=== PATIENT | female | born 1965 | race Caucasian/White ===

== ENCOUNTER 2018-01-29 20:59 | Inpatient (IN) | payer OTHER ==
[~2018-01-29] VITALS: Ht 160 cm; Wt 92.7 kg
--- NOTE | ~2018-01-29 | O ---
[place], [place] OPERATIVE NOTE NAME: MELLISSA CANTRELL [facility] #: [id number] UNIT #: [id number] ROOM: 504 DOCTOR: ERIC SINHAYENISTUART BIRTHDATE: [birth year] DOS: 01/30/2018 GASTROENDOSCOPIC REPORT HISTORY OF PRESENT ILLNESS: The patient is a 53-year-old who presented with symptomatology of dyspepsia, dysphagia and she is an avid nicotine consumer and we have been consulted about her symptomatology and possible reflux. PAST MEDICAL HISTORY: Bipolar disorder, hypertension, obesity, hypothyroidism, hyperlipidemia, and asthma. PAST SURGICAL HISTORY: Tonsillectomy. SOCIAL HISTORY: Smoker and social alcohol consumer. FAMILY HISTORY: Noncontributory. ALLERGIES: CEPHALEXIN, AZITHROMYCIN, GENTAMICIN, LEVOFLOXACIN, and COMPAZINE, ALL WAS REVIEWED. MEDICATIONS: Medication list is known including ibuprofen 800 mg p.o. q.8 hours. PROCEDURE: Today's procedure part of investigation is panendoscopy plus biopsy plus esophageal balloon dilation to size 18. PREMEDICATION: Propofol. SCOPE: Olympus forward-viewing gastroscope Q10 video. REPORT: After putting the patient in left lateral position and application of lubricant to the scope, the scope was introduced. Thereafter, under direct visualization, advanced through the length of esophagus into gastric pouch into duodenum. Gastritis was noticed. Duodenitis identified, photographed. Biopsy from antrum was obtained. Scope was gradually withdrawn back to the mid gastric pouch. A balloon size 18 was introduced into the gastric pouch inflated and orally extracted highest resistance in cervical esophagus was noticed. The patient tolerated the procedure well, extubated. IMPRESSION: Benign esophageal stricture plus status post balloon dilation, gastritis, duodenitis that requires Protonix therapy 40 mg daily at least. She has to be advised to abstain from continuous intake of 800 mg ibuprofen q.8h. and if she has to then she has to adopt taking Gaviscon tablet along with it, otherwise regular diet. Other adjunctive diagnoses that has been already established as fatty metamorphosis of the liver and hepatomegaly is known. Her comprehensive metabolic panel has been reviewed. Records reviewed. Hypertriglyceridemia of 338 noticed. She needs to be on Lopid for management 600 mg daily. Her white blood cell 12, H and H of 10 and 33 is recognized. Hemoglobin A1c 6.3, elevated. CT scan of the abdomen and pelvis has been reviewed. [place], [place] OPERATIVE NOTE NAME: MELLISSA CANTRELL UNIT #: [id number] ROOM: 504 DOCTOR: ERIC SINHA,VARGHESE BIRTHDATE: [birth year] PLAN: As recommended above. We already recognizing left-sided uterine fibroid, which could associated with some of her abdominal distress and pain. However, she would need a colonoscopy as outpatient if she is discharged, so that we assure that there is no other cause to her anemia. VARGHESE REYES MD CM:OPRECORD:OPERATIVE NOTE [phone] VARGHESE REYES MD 01/30/18 1830 interface
[2018-01-29 20:59] VITALS: BP 142/67
[~2018-01-29 20:59] MED LIST: ATIVAN0.5 MG PO; ATORVASTATIN CA20 M1 PO; CITALOPRAM20 MG PO; CLARITIN10 MG PO; CLONAZEPAM2 MG PO; COGENTIN1 MG PO; FLAGYL500 MG PO; FUROSEMIDE20 M1 PO; GEODON60 MG PO; GEODON80 MG PO; IBU800 M1 PO; MEDROL DOSEPAK4 MG PO; METFORMIN500 MG PO; MIDRIN (DURADR1 CAP PO; PREDNICOT20 MG PO; Synthroid,Levo25 MCG PO; TESSALON PERLE200 MG PO; TRIMOX500 MG PO; VIBRAMYCIN100 MG PO; VICODIN 5/500 505 MG PO; VITAMIN D50000 UNIT PO; XANAX1 MG PO; ZOFRAN4 MG PO
[2018-01-29 21:52] LABS: BILIRUBIN NEGATIVE (NEGATIVE); BLOOD NEGATIVE (NEGATIVE); CLARITY CLEAR (CLEAR); COLOR YELLOW (YELLOW); GLUCOSE NEGATIVE (NEGATIVE); KETONE NEGATIVE (NEGATIVE); LEUKO ESTERASE NEGATIVE (NEGATIVE); NITRITE NEGATIVE (NEGATIVE); SPECIFIC GRAVITY <= 1.005 (1.005-1.030); UROBILINOGEN 0.2 E.U./dl (0.2-1.0)
[2018-01-29 22:01] LABS: HEMATOCRIT 36.9 % (37.0-47.0); HEMOGLOBIN 12.1 g/dl (12.0-16.0); MEAN CELL VOLUME 86.4 fl (81.0-99.0); MEAN CORPUSCULAR HGB 28.3 pg (27.0-31.0); MEAN CORPUSCULAR HGB CONC 32.8 g/dl (33.0-37.0); MEAN PLATELET VOLUME 8.6 fl (9.6-12.3); PLATELET COUNT AUTOMATED 396 10*3/uL (130-400); RED BLOOD COUNT 4.27 10*6/uL (4.10-5.10)
[2018-01-29 22:07] LABS: BACTERIA 3+
[2018-01-29 22:17] LABS: ALBUMIN 3.4 gm/dl (3.1-4.5); ALKALINE PHOSPHATASE 98 U/L (45-117); BUN 10 mg/dl (7-24); CHLORIDE 104 mmol/L (98-107); CREATININE 0.97 mg/dL (0.55-1.02); LIPASE 142 U/L (73-393); POTASSIUM 3.5 mmol/L (3.5-5.1); SGOT/AST 16 IU/L (3-35); SGPT/ALT 34 U/L (12-78); SODIUM 139 mmol/L (136-145); TOTAL PROTEIN 7.7 gm/dL (6.4-8.2)
[2018-01-29 22:27] LABS: PLATELET SUFFICIENCY NORMAL (NORMAL); TOTAL CELLS COUNTED 100 #CELLS
[2018-01-29 23:43] VITALS: BP 99/48
[2018-01-30] VITALS (10 sets, daily range): BP systolic 100–128; BP diastolic 50–65
[2018-01-30] MEDS ORDERED: APRESOLINE25 MG PO (01:12)
[2018-01-30] MEDS ORDERED: PRILOSEC20 M1 PO (01:15)
[2018-01-30 06:38] LABS: BASO # 0.1 10*3/uL (0.0-0.1); BASO % 0.7 % (0.0-1.0); EOS # 0.2 10*3/uL (0.0-0.4); EOS % 1.9 % (1.0-4.0); HEMATOCRIT 33.1 % (37.0-47.0); HEMOGLOBIN 10.6 g/dl (12.0-16.0); LYMPH # 4.7 10*3/uL (1.3-4.4); LYMPH % 38.8 % (27.0-41.0); MEAN CORPUSCULAR HGB 28.2 pg (27.0-31.0); MEAN PLATELET VOLUME 8.6 fl (9.6-12.3); MONO # 0.6 10*3/uL (0.1-1.0); MONO % 5.3 % (3.0-9.0); NEUT # 6.4 10*3/uL (2.3-7.9); NEUT % 52.9 % (47.0-73.0); PLATELET COUNT AUTOMATED 342 10*3/uL (130-400); RED BLOOD COUNT 3.76 10*6/uL (4.10-5.10); RED CELL DISTRI WIDTH 16.4 % (0-14.5); WHITE BLOOD COUNT 12.1 10*3/uL (4.8-10.8)
[2018-01-30 06:41] LABS: VITAMIN D, 25-HYDROXY 26.1 ng/mL (30-100)
[2018-01-30 06:53] LABS: ALBUMIN 2.9 gm/dl (3.1-4.5); ALKALINE PHOSPHATASE 85 U/L (45-117); BUN 12 mg/dl (7-24); CHLORIDE 107 mmol/L (98-107); CHOLESTEROL 190 mg/dL (<200); CREATININE 1.01 mg/dL (0.55-1.02); FREE T4 0.87 ng/dl (0.76-1.46); HDL CHOLESTEROL 30 mg/dl (40-60); LDL CHOLESTEROL 92 mg/dL (9-159); PHOSPHOROUS 4.1 mg/dL (2.5-4.9); POTASSIUM 3.6 mmol/L (3.5-5.1); SGOT/AST 14 IU/L (3-35); SGPT/ALT 28 U/L (12-78); SODIUM 141 mmol/L (136-145); TOTAL PROTEIN 6.5 gm/dL (6.4-8.2); TRIGLYCERIDES 338 mg/dl (<150); VLDL CHOLESTEROL 68 mg/dL (6-40)
[2018-01-30] MEDS ORDERED: GAVISCON ES TA1 EACH PO (18:56)
[2018-01-30] MEDS ORDERED: ATORVASTATIN CA40 M1 PO (18:56)
[2018-01-30] MEDS ORDERED: PROTONIX40 MG PO (18:56)
[2018-01-30] MEDS ORDERED: VITAMIN D31000 UNIT PO (18:56)
== END 2018-01-30 20:05 | disposition home or self-care (01) | DRG 392 ==
LOC: ED 20:59 → 5E 01-30 00:05 → EDHOLD 01-30 00:05 → 5E 01-30 00:32
PROVIDERS: Emergency Medicine Emergency Medical Services; Internal Medicine
PROC: 0DB68ZX Excision of Stomach, Via Natural or Artificial Opening Endoscopic, Diagnostic (ICD-10-PCS; principal; 2018-01-30)
PROC: 0D758ZZ Dilation of Esophagus, Via Natural or Artificial Opening Endoscopic (ICD-10-PCS; 2018-01-30)
DX: R10.84 Generalized abdominal pain (principal); K76.0 Fatty (change of) liver, not elsewhere classified; K22.2 Esophageal obstruction; E03.9 Hypothyroidism, unspecified; E78.5 Hyperlipidemia, unspecified; E11.9 Type 2 diabetes mellitus without complications; R82.71 Bacteriuria; I10 Essential (primary) hypertension; F17.210 Nicotine dependence, cigarettes, uncomplicated; D25.9 Leiomyoma of uterus, unspecified; K29.80 Duodenitis without bleeding; K29.70 Gastritis, unspecified, without bleeding; J45.909 Unspecified asthma, uncomplicated; E66.9 Obesity, unspecified; F31.9 Bipolar disorder, unspecified; K21.9 Gastro-esophageal reflux disease without esophagitis; Z88.1 Allergy status to other antibiotic agents; Z88.8 Allergy status to other drugs, medicaments and biological substances; Z79.84 Long term (current) use of oral hypoglycemic drugs; Z79.899 Other long term (current) drug therapy; Z82.3 Family history of stroke; Z83.3 Family history of diabetes mellitus; Z82.49 Family history of ischemic heart disease and other diseases of the circulatory system; Z80.8 Family history of malignant neoplasm of other organs or systems; Z68.36 Body mass index [BMI] 36.0-36.9, adult

== ENCOUNTER 2018-05-14 16:12 | Inpatient (IN) | payer OTHER ==
[~2018-05-14] VITALS: Ht 162.6 cm; Wt 91.2 kg
--- NOTE | ~2018-05-14 | PR ---
[place], [place] PROGRESS NOTE NAME: NELLI CANTRLEL [facility] #: [id number] UNIT #: [id number] ROOM: 511 DOCTOR: ISAAC DAMON MD,JEANNETTE BIRTHDATE: [birth year] DOS: 05/20/2018 SUBJECTIVE: The patient is noted comfortable at this time without any acute distress, resting with marked improvement and resolution. The patient's respiratory complaints was noted. The patient was independently seen and examined in [id number] encounter, history was confirmed. Physical exam was performed. The assessment and management was done today was made personally for today's visit. The note done by the medical records library professor group. OBJECTIVE: VITAL SIGNS: Shows normal temperature, respiratory rate 20, heart rate of 70, blood pressure normal. The pulse oxygen saturation noted as 94% on room air. LUNGS: Noted without any wheeze or crackle this morning, marked improvement in wheezing noted after bronchoscopy. ABDOMEN: Soft and obese, improving tender in anterior abdominal wall. EXTREMITIES: No edema. LABORATORY DATA: Cultures of the bronchial washing were noted normal estiven, final culture results were pending. IMPRESSION: The patient significant improvement. The patient continued for acute exacerbation of COPD, still noted leukocytosis as 21.4 in today's CBC. 21% lymphocytes were noted with that. PLAN OF MANAGEMENT: The patient could be discharged home on tapering dose of prednisone, antibiotics. Outpatient assessment seems patient off the steroids couple of weeks later to see the trend if the WBC count continue remains elevated. The patient will be recommended about hematology consultation to rule out any bone marrow problems. In the meantime, other supportive therapy, plan of management, continue as previously in progress. JEANNETTE GRAY MD CM:PNTRANS [id number] JEANNETTE DAMON MD 06/05/18 0814 interface
--- NOTE | ~2018-05-14 | PR ---
[place], [place] PROGRESS NOTE NAME: NELLI CANTRELL [facility] #: [id number] UNIT #: [id number] ROOM: 511 DOCTOR: MALINDA PARMAR DO BIRTHDATE: [birth year] DOS: 05/20/2018 SUBJECTIVE: The patient was seen and examined at the bedside. She denies fevers, chills, nausea, abdominal pain or any change in bowel or bladder habits. The patient states that she is overall feeling greatly improved today after her bronchoscopy yesterday. She still is experiencing some wheezing and coughing, but overall feels greatly improved. OBJECTIVE: VITAL SIGNS: Show temperature at 97.7 degrees Fahrenheit, heart rate at 57, respiratory rate at 18, blood pressure at 113/47, pulse oximetry 94% on room air. GENERAL APPEARANCE: The patient was awake, alert, responsive, cooperative and in no acute distress. HEENT: Head was normocephalic and atraumatic. No lesions or ulcerations were noted to the eyes. NECK: Trachea appeared midline. CARDIOVASCULAR: Positive S1 and S2 sounds are heard. Regular rate and rhythm were noted. No murmurs, rubs or gallops were appreciated. PULMONARY: Expiratory wheezing was heard. LUNGS: Occasional coughing was present on exam. ABDOMEN: The abdomen was soft and nontender to palpation. Bowel sounds were auscultated. The abdomen was obese. EXTREMITIES: Bilateral lower extremities were without edema. No clubbing, cyanosis or erythema was present. LABORATORY DATA: CBC from today shows white count at 21.4, hemoglobin at 10.6, hematocrit at 33.2, platelets at 369. Most recent chemistries from yesterday 05/19/2018, show sodium at 141, potassium at 3.7, chloride at 109, bicarbonate at 24, BUN at 28, creatinine at 0.80, glucose at 108, calcium at 8.5, total bilirubin at 0.2, AST at 9, ALT at 20, alkaline phosphatase at 68, and albumin at 3.0. In terms of microbiology preliminary bronchial washings showed normal estiven with fever observed yeast. IMPRESSION: 1. Acute exacerbation of chronic obstructive pulmonary disease. 2. Persistent leukocytosis. 3. Tobacco abuse. 4. Obesity. 5. Normocytic anemia. PLAN OF MANAGEMENT: The patient remains on Solu-Medrol 20 mg q.12h. IV Rocephin, Mucinex and bronchodilator therapy. At this time, she is stable for consideration of discharge and should follow up with Pulmonary Medicine on an outpatient basis. There should be consideration for followup with Hematology/Oncology for evaluation of a possible malignancy should the patient's leukocytosis persists. [place], [place] PROGRESS NOTE NAME: NELLI CANTRELL UNIT #: [id number] ROOM: 511 DOCTOR: MALINDA PARMAR DO BIRTHDATE: [birth year] Malinda Parmar DO JEANNETTE GRAY MD CM:PNKANDY [phone] MALINDA PARMAR DO 05/20/18 1321 interface
--- NOTE | ~2018-05-14 | PR ---
[place], [place] PROGRESS NOTE NAME: NELLI CANTRELL [facility] #: [id number] UNIT #: [id number] ROOM: [facility] DOCTOR: ASHWIN ARANGO MD BIRTHDATE: [birth year] DOS: 05/16/2018 SUBJECTIVE: The patient is breathing better, starting to feel better. OBJECTIVE: VITAL SIGNS: Blood pressure 103/58, heart rate of 73 beats per minute, breathing 18-24 times per minute, afebrile. GENERAL APPEARANCE: The patient is alert and oriented x 3, in no visible distress, except for obesity. HEENT AND NECK: Exam within normal limits. CARDIOVASCULAR SYSTEM: Heart rate is regular in rate and rhythm. S1 and S2 normally audible. LUNGS: Expiratory wheezing allover on lung auscultation. ABDOMEN: Soft, nontender. No obvious organomegaly. Bowel sounds are present. EXTREMITIES: Without significant cyanosis or edema. IMPRESSION: 1. The patient with acute over chronic respiratory failure with wheezing with very slow improvement with treatment. The patient will be moved out of the ICU today. 2. Corticosteroid-induced leukocytosis. 3. Cardiac enzymes were negative. 4. Acute exacerbation of chronic obstructive pulmonary disease, improving with treatment. 5. Type 2 diabetes mellitus. Blood sugars being monitored and treated. The patient is on a sliding scale of regular insulin. 6. Hypothyroidism, treated with levothyroxine. 7. Generalized anxiety disorder, treated and controlled with hydroxyzine. ASHWIN ARANGO MD CM:PNTRANS [phone] ASHWIN ARANGO MD 05/17/18 0003 interface
--- NOTE | ~2018-05-14 | PR ---
[place], [place] PROGRESS NOTE NAME: NELLI CANTRELL UNIT #: [id number] ROOM: 511 DOCTOR: MALINDA PARMAR DO BIRTHDATE: [birth year] DOS: 05/19/2018 SUBJECTIVE: The patient was seen and examined prior to her bronchoscopy today. She had previously been experiencing coughing so severe that she pulled an abdominal muscle, but was still unable to expectorate her sputum. OBJECTIVE: VITAL SIGNS: Showed temperature at 98.4 degrees Fahrenheit, heart rate at 70, respiratory rate at 18, blood pressure at 133/62, pulse oximetry at 95% on room air. GENERAL APPEARANCE: The patient was awake, responsive and in no acute distress. HEENT: The head was normocephalic and atraumatic. Eyes were without lesions or ulcerations. PULMONARY: Showed occasional coughing. ABDOMEN: Showed an obese abdomen. EXTREMITIES: Without cyanosis, clubbing, or erythema. LABORATORY DATA: CBC from today shows white count at 20.4, hemoglobin at 10.7, hematocrit at 33, platelets at 373. Chemistries from today shows sodium at 141, potassium at 3.7, chloride at 109, bicarbonate at 24, BUN at 28, creatinine at 0.8, glucose at 108, calcium at 8.5, total bilirubin at 0.2, AST at 9, ALT at 20, alkaline phosphatase at 68, albumin at 3.0. IMPRESSION: 1. Acute exacerbation of chronic obstructive pulmonary disease. 2. Acute hypoxic respiratory failure secondary to chronic obstructive pulmonary disease. 3. Tobacco abuse. 4. Obesity. 5. Leukocytosis. 6. Hyperglycemia. PLAN OF MANAGEMENT: For the patient's COPD, she is on IV Rocephin as well as Solu-Medrol 20 mg b.i.d. She also remains on Mucinex and bronchodilator therapy. The patient underwent bronchoscopy today with liberation of large quantities of mucus plugs. Bronchial washings are now pending. Malinda Parmar DO [place], [place] PROGRESS NOTE NAME: NELLI CANTRELL UNIT #: [id number] ROOM: 511 DOCTOR: MALINDA PARMAR DO BIRTHDATE: [birth year] JEANNETTE GRAY MD CM:MARCO [id number] MALINDA PARMAR DO 05/19/18 1140 interface
--- NOTE | ~2018-05-14 | DS ---
[place], [place] DISCHARGE SUMMARY NAME: NELLI CANTRELL [facility] #: [id number] UNIT #: [id number] ROOM: 511 DOCTOR: ASHWIN ARANGO MD BIRTHDATE: [birth year] DOS: 05/20/2018 DISCHARGE DIAGNOSES: 1. Acute exacerbation of chronic obstructive pulmonary disease, improved with treatment. Bronchoscopy performed during this admission. 2. Persistent leukocytosis needs to be reevaluated in 2 weeks. 3. Continued nicotine smoke dependence. 4. Hypothyroidism. 5. Generalized anxiety disorder. 6. Type 2 diabetes mellitus. 7. Acute over chronic respiratory failure. 8. Bipolar disorder. 9. Gastroesophageal reflux disease and esophagitis. 10. Vitamin D deficiency. 11. Mixed hyperlipidemia. 12. Obesity. 13. Major depression, recurrent, moderate. HOSPITAL COURSE: The patient was admitted with increased shortness of breath, wheezing, and acute over chronic respiratory failure and I admitted her to the ICU from my office. Dr. Chaves, the data processor was consulted and she had slow improvement with treatment with corticosteroids, oxygen, antibiotics and nebulizer treatments. Finally, the patient was taken for a bronchoscopy and her breathing is somewhat improved. The patient has chronic wheezing, but she appears to have achieved maximum benefit from this admission and will be discharged to home in consultation with Dr. Chaves and she will follow up with him as an outpatient and with me in less than a week. Persistent leukocytosis could be secondary to corticosteroids, but she will need reevaluation in 2 weeks. Generalized anxiety disorder, treated and controlled with Xanax as needed. Gastroesophageal reflux disease and esophagitis, asymptomatic with Protonix. Hypothyroidism, treated with levothyroxine. Major depression, recurrent, mild, treated with citalopram, asymptomatic. LABORATORY DATA: White cell count of 21,000, hemoglobin 10.6, normal platelets. Sputum cultures from bronchoscopy pending. DISCHARGE MANAGEMENT: Hydroxyzine 25 mg 3 times a day, nicotine patch 21 mg daily, levothyroxine 125 mcg daily, furosemide 20 mg daily, metformin 500 mg b.i.d., Protonix 40 mg a day, Geodon 60 mg b.i.d., ropinirole 0.5 mg b.i.d., citalopram 30 mg a day, Xanax 1 mg t.i.d. as needed for anxiety. Follow up at the office in less than a week and follow up with Dr. Chaves, the data processor. [place], [place] DISCHARGE SUMMARY NAME: NELLI CANTRELL [facility] #: [id number] UNIT #: [id number] ROOM: [facility] DOCTOR: ASHWIN ARANGO MD BIRTHDATE: [birth year] ASHWIN ARANGO MD CM:MIGUE [id number] ASHWIN ARANGO MD 05/20/18 2114 interface
--- NOTE | ~2018-05-14 | PR ---
[place], [place] PROGRESS NOTE NAME: NELLI CANTRELL UNIT #: [id number] ROOM: 511 DOCTOR: JEANNETTE OAKES MD BIRTHDATE: [birth year] DOS: 05/17/2018 PULMONARY PROGRESS NOTE SUBJECTIVE: She was transferred from Intensive Care Unit to medical floor. She has now been noted with symptoms of chest pain. The patient does have a cough, nonproductive with shortness of breath occurring with exertion, not at rest. There were no symptoms of chest pain. OBJECTIVE: VITAL SIGNS: Normal temperature, respiratory rate 22, heart rate 75, blood pressure 129/76. Pulse oxygen saturation on 2 liters nasal cannula 93% saturation. HEENT: Examination shows head was atraumatic, chronic obesity. NECK: Supple. CARDIOVASCULAR: S1, S2 is audible. LUNGS: The patient was noted with general reduction in the breath sounds, scattered wheezing. There were no crackles. ABDOMEN: Soft, nontender. EXTREMITIES: Without any acute edema. LABORATORY DATA: CBC today: WBC count 21,000, decreased, previously 23,000. CMP: BUN 25, creatinine was normal. The chest x-ray that was done yesterday, was noted without any acute pulmonary infiltration, which were visible. IMPRESSION: 1. The patient with acute hypoxic respiratory failure. At this time, the etiology was noted unclear, partly related to the acute exacerbation of chronic obstructive pulmonary disease; however, other etiologies to be excluded. 2. Leukocytosis. PLAN OF MANAGEMENT: Order CTA of the chest for assessment of the pulmonary arteries to rule out pulmonary embolism and also to assess the current leukocytosis that might be resulting from the occult pneumonia, not visible on the chest x-ray. Monitor culture results as well. Usual care. Other additional treatment changes to be made based on the progression of the illness. Supportive care to be continued. Monitoring the lab will be continued. [place], [place] PROGRESS NOTE NAME: NELLI CANTRELL UNIT #: [id number] ROOM: 511 DOCTOR: JEANNETTE OAKES MD BIRTHDATE: [birth year] JEANNETTE GRAY MD CM:PNTRANS [id number] JEANNETTE DAMON MD 05/18/18 0013 interface
--- NOTE | ~2018-05-14 | PR ---
[place], [place] PROGRESS NOTE NAME: NELLI CANTRELL [facility] #: [id number] UNIT #: [id number] ROOM: 511 DOCTOR: ASHWIN ARANGO MD BIRTHDATE: [birth year] DOS: 05/17/2018 SUBJECTIVE: The patient is improving slowly, but still has wheezing in her lungs. OBJECTIVE: VITAL SIGNS: Blood pressure 102/57, heart rate 73 beats per minute, breathing 18 times per minute, temperature 98.5 degrees Fahrenheit. GENERAL APPEARANCE: The patient is alert and oriented x 3, in no visible distress. Obesity. HEENT AND NECK: Exam within normal limits. CARDIOVASCULAR SYSTEM: Heart rate is regular in rate and rhythm. S1 and S2 normally audible. LUNGS: Auscultation shows expiratory wheezing. ABDOMEN: Soft, nontender. No obvious organomegaly. Bowel sounds are present. EXTREMITIES: Without significant cyanosis or edema. IMPRESSION: 1. Acute exacerbation of chronic obstructive pulmonary disease with wheezing and slow improvement, being followed by Dr. Chaves. The patient is still on a cardiac rehabilitation program director and being treated with bronchodilators, antibiotic, oxygen and corticosteroids. 2. Corticosteroid-induced leukocytosis. 3. Negative cardiac enzymes. 4. Acute over chronic respiratory failure, improving. 5. Type 2 diabetes mellitus. Blood sugars are reasonably controlled. 6. Generalized anxiety disorder, treated and controlled with hydroxyzine. 7. Hypothyroidism, replaced with levothyroxine. 8. CT angiogram of the chest showing no signs of pulmonary embolism. ASHWIN ARANGO MD CM:PNTRANS [phone] ASHWIN ARANGO MD 05/17/182048 interface
--- NOTE | ~2018-05-14 | PR ---
[place], [place] PROGRESS NOTE NAME: NELLI CANTRELL [facility] #: [id number] UNIT #: [id number] ROOM: 511 DOCTOR: ASHWIN ARANGO MD BIRTHDATE: [birth year] DOS: 05/18/2018 SUBJECTIVE: The patient is still wheezing and short of breath and going for bronchoscopy by Dr. Chaves. OBJECTIVE: VITAL SIGNS: Blood pressure 115/52, heart rate 63 beats per minute, breathing 20 times per minute, temperature 98.3 degrees Fahrenheit. HEENT AND NECK: Exam within normal limits. CARDIOVASCULAR SYSTEM: Heart rate is regular in rate and rhythm. S1 and S2 normally audible. LUNGS: Expiratory wheezing and decreased breath sounds all over on lung auscultation. ABDOMEN: Soft, nontender. No obvious organomegaly. Bowel sounds are present. Obesity. EXTREMITIES: Without significant cyanosis or edema. IMPRESSION: 1. Corticosteroid-induced leukocytosis. 2. Acute exacerbation of chronic obstructive pulmonary disease with continued wheezing. The patient going for bronchoscopy by Dr. Chaves, which is both diagnostic and therapeutic. 3. Acute on chronic respiratory failure. 4. Type 2 diabetes mellitus. Blood sugars will be monitored and treated. 5. Generalized anxiety disorder, treated and controlled. The patient on hydroxyzine as needed. 6. Hypothyroidism, treated with levothyroxine supplementation. ASHWIN ARANGO MD CM:PNTRANS [phone] ASHWIN ARANGO MD 05/19/18 0300 interface
--- NOTE | ~2018-05-14 | PROC NOTE ---
[place], [place] PROCEDURE NOTE NAME: NELLI CANTRELL UNIT #: [id number] ROOM: 511 DOCTOR: ISAAC DAMON MD,JEANNETTE BIRTHDATE: [birth year] DOS: 05/19/2018 PREOPERATIVE DIAGNOSIS: Severe excessive cough with musculoskeletal pain, inability to expectorate sputum with hard attempt. POSTOPERATIVE DIAGNOSES: Removal of large plugs in mucus and the largest plug was removed about 3.5 inch in length. Evidence of acute tracheobronchitis. PROCEDURE DESCRIPTION: Informed consent obtained for the patient. The patient brought to the OR and placed in supine position. Conscious sedation administered by the Anesthesia Department. After achieving proper sedation, airway introduced into the mouth. Bronchoscope advanced to the airway into laryngeal area. Epiglottis and vocal cords were seen. Bronchoscope entered vocal cord and tracheal lumen. Tracheal lumen was noted with thick mucoid secretion, which was suctioned out with the help of normal saline wash. The mucus was removed. The codie was noted. The patient noted a very large plugs which was present in the right main stem bronchus extending to the right lower lobe about 3.5 inches in length. All the plugs of the mucus was removed. Other large plugs in mucus present in right middle lobe and other additional endobronchial tree on the right side, which was suctioned out. The bronchoscope later on entered into the left main stem bronchus with similar secretion present with the thick plug and impaction of the mucus. All secretions suctioned out and sent for cultures. Procedure was well tolerated by the patient without difficulty. Postoperative findings will be discussed once the patient recovered the effects of acute sedation. No immediate treatment changes will be necessary. JEANNETTE GRAY MD CM:PROCNOTE:PROCEDURE NOTE [id number] JEANNETTE DAMON MD
--- NOTE | ~2018-05-14 | PR ---
[place], [place] PROGRESS NOTE NAME: NELLI CANTRELL [facility] #: [id number] UNIT #: [id number] ROOM: 511 DOCTOR: ASHWIN ARANGO MD BIRTHDATE: [birth year] DOS: 05/19/2018 SUBJECTIVE: The patient continues to feel better. OBJECTIVE: VITAL SIGNS: Blood pressure 92/42, heart rate of 73 beats per minute, breathing normally, afebrile. GENERAL APPEARANCE: The patient is alert and oriented x 3, in no visible distress. HEENT AND NECK: Exam within normal limits. CARDIOVASCULAR SYSTEM: Heart rate is regular in rate and rhythm. S1 and S2 normally audible. LUNGS: Expiratory wheezing on lung auscultation and obesity. ABDOMEN: Soft, nontender. No obvious organomegaly. Bowel sounds are present. EXTREMITIES: Without significant cyanosis or edema. IMPRESSION: 1. The patient with acute exacerbation of chronic obstructive pulmonary disease with cough, sputum and wheezing and some musculoskeletal pains, underwent bronchoscopy by Dr. Chaves. 2. Persistent hypotension. The patient only on a small dose of hydralazine, which has been stopped. The patient otherwise asymptomatic. 3. Corticosteroid-induced leukocytosis. 4. Type 2 diabetes mellitus. Blood sugars are reasonably controlled. 5. Mild protein-calorie malnutrition. The patient working with dietary. 6. Hypothyroidism, treated with levothyroxine. 7. Generalized anxiety disorder, treated with hydroxyzine as needed. 8. Acute over chronic respiratory failure, improving with treatment. ASHWIN ARANGO MD CM:PNTRANS [phone] ASHWIN ARANGO MD 05/20/18 1441 interface
--- NOTE | ~2018-05-14 | PR ---
[place], [place] PROGRESS NOTE NAME: [facility] #: [id number] UNIT #: [id number] ROOM: 511 DOCTOR: ISAAC DAMON MD,JEANNETTE BIRTHDATE: [birth year] DOS: 05/19/2018 SUBJECTIVE: The patient was independently seen and examined, [id number] encounter, history was confirmed. Physical examination was performed. The labs were reviewed with the assessment and management of the patient today's note was personally completed. The patient continuous with severe excessive cough. The patient with musculoskeletal pain including the abdomen remains unchanged from yesterday. She was receiving high dose of Mucinex and also continue bronchodilators and other medical management. The patient denies symptoms of nausea, vomiting, diarrhea, abdominal pain was noted anterior abdominal wall mostly with the cough and with the palpation. Denies any headache or diplopia. Remaining systems were reviewed. They were noted all negative. PHYSICAL EXAMINATION: VITAL SIGNS: Normal temperature, respiratory rate 18, heart rate 74, blood pressure 133/62. Pulse oxygen saturation on room air 95% saturation. HEENT: Chronic moderate severe obesity. Oral mucosa was moist. NECK: Supple. Decreased posterior pharyngeal space. CARDIOVASCULAR: S1, S2 is audible. LUNGS: The patient was noted with decreased breath sounds in the lungs bilaterally. Expiratory wheezing. ABDOMEN: Soft and diffusely tender anterior abdominal wall. The patient with muscular pain. SKIN: No lesions or rashes. CENTRAL NERVOUS SYSTEM: Cranial nerves 2-12 intact. No focal deficit. MUSCULOSKELETAL: Without any acute deformities. LABORATORY DATA: CBC this morning, WBC count still noted elevated, but partially decreased 21,000-20,000 today. Hemoglobin 10.7, platelet count normal. CMP this morning, BUN noted mildly elevated 28 as previously. Creatinine normal. The albumin 3.0. IMPRESSION: 1. Severe nonproductive cough, musculoskeletal pain, inability to expectorate sputum with ongoing acute exacerbation without any further improvement noted in the last couple of days of treatment. Plan for bronchoscopy. The patient was noted n.p.o. past midnight. 2. Azotemia prerenal secondary to corticosteroid. 3. Persistent leukocytosis secondary to underlying infection and possible some contributed by the steroids. PLAN OF MANAGEMENT: No changes in the plan of therapy at this time. Continuation of the current medical plan of management, proceed with the fibrobronchoscopy, change in treatment will be done if necessary. Local pain management. Usual care, other supportive therapy, plan of management and other treatment and care. Any addition of changes or adjustment in medication if necessary will be done for this patient after the bronchoscopy. [place], [place] PROGRESS NOTE NAME: NELLI CANTRELL UNIT #: [id number] ROOM: [facility] DOCTOR: JEANNETTE OAKES MD BIRTHDATE: [birth year] JEANNETTE GRAY MD CM:MARCO [id number] JEANNETTE DAMON MD 06/05/18 0813 interface
--- NOTE | ~2018-05-14 | PR ---
[place], [place] PROGRESS NOTE NAME: NELLI CANTRELL LOCATED [facility]IN [facility] #: [id number] UNIT #: [id number] ROOM: 511 DOCTOR: ISAAC DAMON MD,JEANNETTE BIRTHDATE: [birth year] DOS: 05/18/2018 PULMONARY PROGRESS NOTE HISTORY OF PRESENT ILLNESS: She has been noted with severe increase of the cough, which has been noted in the last 24 hours. Coughing was noted nonproductive and so hard for the patient. The patient pulled the muscle of the abdomen and significant pain was noted in the abdomen with the current cough. The patient was holding off the cough because of the pain. Denies symptoms of fever or chills. The wheezing was noted intermittently. Shortness of breath was also noted with exertion. Denies any edema or pain in lower extremities. Denies symptoms of headache or diplopia. Remaining systems were reviewed. They were noted all negative. PHYSICAL EXAMINATION: VITAL SIGNS: Showed normal temperature, respiratory rate 20, heart rate of 63, blood pressure 115/52. Pulse oxygen saturation on room air was 95% saturation. HEENT: Chronic severe obesity. Head was atraumatic. Eyes nonicterus. NECK: Supple. CARDIOVASCULAR: S1, S2 audible. LUNGS: Decreased breath sounds with expiratory wheezing, no crackles. ABDOMEN: Soft with tenderness noted in the anterior abdominal wall secondary to current muscle strain with a cough. Bowel sounds are present. EXTREMITIES: Noted chronic obesity without any edema. VISIBLE SKIN: No lesions or rashes. CENTRAL NERVOUS SYSTEM: Noted intact. LABORATORY DATA: The CBC that was done for the patient this morning noted persistent elevation of the WBC count to 21.5, hemoglobin 10.6, hematocrit 32.6, platelet count 362,000. The CMP of the patient; BUN 29, creatinine was normal. The CT of the chest was completed yesterday for assessment of the current etiology of the leukocytosis and current acute hypoxia. The CT of the chest does not show any evidence of pulmonary embolism. The parenchymal windows review was done for the patient showed small ground-glass opacity, which is present in the left upper lung in the periphery. Otherwise, no other acute abnormality noted in the lungs. There was no lymphadenopathy noted. IMPRESSION: 1. The patient who has been currently noted with severe cough, which has not been improving resulting in musculoskeletal pain because of cough, currently treated for acute exacerbation of chronic obstructive pulmonary disease. 2. Acute hypoxic respiratory failure secondary to that. 3. History of nicotine abuse. 4. Chronic obesity. 5. Current body habitus suggestive of obstructive sleep apnea disorder as well. 6. Mild azotemia secondary to corticosteroids. PLAN OF MANAGEMENT: Continue maximum medical therapy of the patient at this time as ongoing. Add the Mucinex 1200 mg p.o. b.i.d. Assess the patient for [place], [place] PROGRESS NOTE NAME: NELLI CANTRELL UNIT #: [id number] ROOM: 511 DOCTOR: ISAAC DAMON MD,JEANNETTE BIRTHDATE: [birth year] fiberoptic bronchoscopy with severe coughing, mucus impacted, now resolving with current maximal medical management. Pain management, local pain management for the patient could be done for the current pain. Usual care. All other supportive therapy, plan of care and other treatment. Continue to monitor leukocytosis, which remains persistent would also be noted beneficial with the bronchoscopy to exclude any resistant pulmonary infection because of persistent severe leukocytosis that has now been improving. Usual care, other therapy for the patient to be continued. Additional treatment changes will be made for the patient based on the progression of the illness. JEANNETTE GRAY MD CM:PNTRANS [phone] JEANNETTE DAMON MD 05/18/18 6726 interface
--- NOTE | ~2018-05-14 | EKG ---
[place], [place] ELECTROCARDIOGRAM REPORT NAME: NELLI CANTRELL UNIT #: [id number] ROOM: 511 DOCTOR: LAISHA DRAFT REPORT BIRTHDATE: [birth year] [facility] Test Date: 2018-05-18 Test Time: 09:12:20 Pat Name: NELLI CANTRELL Department: Room: [facility] 2 Gender: F Rat Breeder: KINJAL : 1965 Requested By: JEANNETTE DAMON Order Number: [id number] Reading MD: Measurements Intervals [place] Rate: 71 P: 50 OK: 139 QRS: 48 QRSD: 105 T: 17 QT: 418 QTc: 455 Interpretive Statements Sinus rhythm Low voltage, precordial leads RSR' in V1 or V2, right VCD or RVH Baseline wander in lead(s) II,III,aVR,aVF Compared to ECG 04/15/2018 08:40:24 Low QRS voltage now present Right ventricular hypertrophy now present RSR' in V1 or V2 now present CM:EKGRPT:ELECTROCARDIOGRAM REPORT 1 1 JEANNETTE INTERIANO DRAFT REPORT JEANNETTE DAMON MD
--- NOTE | ~2018-05-14 | CON ---
[place], [place] REPORT OF CONSULTATION NAME: NELLI CANTRELL [facility] #: [id number] UNIT #: [id number] ROOM: 511 DOCTOR: JEANNETTE OAKES MD BIRTHDATE: [birth year] DOS: 05/16/2018 PULMONARY CONSULTATION REASON FOR CONSULTATION: To assess the patient's current symptoms of shortness of breath and others. HISTORY OF PRESENT ILLNESS: This is a 53-year-old white female patient who has been admitted to the hospital under the care of Dr. Todd from his office. The patient has been admitted to the hospital. The patient was reported symptoms of having increased shortness of breath, which has been ongoing for the past couple of weeks. She was also noted symptoms of chest congestion as well. There was no sputum expectoration. She was also reported symptoms of wheezing. The patient has been admitted to the hospital for further medical management for the patient's current acute exacerbation of chronic obstructive pulmonary disease. The patient has been treated with the Solu-Medrol, bronchodilators and oxygen supplementation. The patient was noted on room air oxygen, previous normal, but later required 4 liters nasal cannula oxygen supplementation to maintain pulse ox saturation 92% or greater per nursing staff. REVIEW OF SYSTEMS: CONSTITUTIONAL SYMPTOMS: Fatigue and tiredness noted without any symptoms of fever or chills. EYES: Denies burning, redness, tenderness. EARS, NOSE, THROAT SYMPTOMS: No sore throat, hoarseness, otalgia, postnasal drainage or epistaxis. Symptoms of snoring was reported. CARDIOVASCULAR: No anginal pain, edema of the lower extremities or angina pain. GASTROINTESTINAL SYMPTOMS: Denies dysphagia, nausea, vomiting, diarrhea, abdominal pain, hematemesis, melena, history of chronic severe obesity without any abnormal weight loss history. GENITOURINARY SYMPTOMS: No dysuria, suprapubic pain, hematuria. MUSCULOSKELETAL: No acute joint pain, redness, or tenderness. SKIN: No abnormal lesions or rashes. Remaining systems were reviewed. They were noted all negative. PAST MEDICAL HISTORY: 1. The patient noted with history of significant psychiatric problem with bipolar disorder and general anxiety disorder and major depression. 2. History of chronic obstructive pulmonary disease. 3. Gastroesophageal reflux. 4. Esophagitis. 5. Chronic nicotine dependency. 6. Mixed hyperlipidemia. 7. Chronic severe obesity. 8. History of hypothyroidism. 9. Type 2 diabetes mellitus. SOCIAL HISTORY: The patient stated that she is and has 6 children. Smoking, the patient noted a pack of cigarettes per day. [place], [place] REPORT OF CONSULTATION NAME: NELLI CANTRELL [facility] #: [id number] UNIT #: [id number] ROOM: [facility] DOCTOR: JEANNETTE OAKES MD BIRTHDATE: [birth year] FAMILY HISTORY: Noted essentially both parents. The patient has been . MEDICATIONS: Administered noted use of hydroxyzine, levothyroxine, hydralazine, Lasix, metformin, Protonix, Geodon, Requip, citalopram, IV Solu-Medrol 20 mg b.i.d., Xanax, Rocephin and others. ALLERGIES: The patient noted as allergies: 1. COMPAZINE. 2. KEFLEX. 3. ZITHROMAX. 3. GENTAMICIN. 4. LEVAQUIN. PHYSICAL EXAMINATION: GENERAL: A 53-year-old white female currently noted awake, alert, without acute distress. Height of 5 feet 4 inches, weight of 21 pounds, BMI 34.5. VITAL SIGNS: The patient noted as normal temperature since admission, respiratory rate 16-20, heart rate of 95-77, blood pressure 106/58-107/53. Pulse oxygen saturation noted on 4 liter nasal cannula was 94% saturation. HEENT: Examination shows chronic obesity. Head was atraumatic. Eyes nonicterus. NECK: Supple and obese. CARDIOVASCULAR: S1, S2 audible. LUNGS: The patient noted moderate general reduction in breath sounds bilaterally. There were no crackles. ABDOMEN: Soft, nontender, bowel sounds present. EXTREMITIES: The patient noted without any edema, clubbing, cyanosis. Chronic obesity findings. SKIN: No lesions or rashes. MUSCULOSKELETAL: Without acute deformities. CENTRAL NERVOUS SYSTEM: Cranial nerves 2-12 intact. LABORATORY DATA: The troponin noted normal. BMP that was done on 05/16/2018, glucose 131, BUN and creatinine normal. Electrolytes normal. CBC: WBC count was significantly elevated WBC count 25.5, hemoglobin 10.4, hematocrit 32.2, platelet count of 369,000. Arterial blood gas that I ordered has obtained. Today, pH of 7.35, pCO2 of 29, pO2 of 92. IMPRESSION: 1. The patient has been currently admitted to the hospital noted with progressive hypoxia requiring oxygen supplementation with possibility of acute pulmonary process including ruling out pneumonia, other etiologies. 2. History of chronic nicotine dependence. 3. Current body habitus suggestive of obstructive sleep apnea disorder. 4. Chronic nicotine dependence. Other medical problems, the patient's comorbid conditions such as type 2 diabetes mellitus, and/or other, which were known including a significant psychiatric stabilization. [place], [place] REPORT OF CONSULTATION NAME: NELLI CANTRELL UNIT #: [id number] ROOM: 511 DOCTOR: ISAAC DAMON MD,JEANNETTE BIRTHDATE: [birth year] PLAN OF MANAGEMENT: Obtain PA lateral chest x-ray if necessary. CT scan chest will be obtained, if the hypoxia could not be explained at this time. Continue antibiotic. No changes need to be done since the patient was noted allergy to the Levaquin and other antibiotics as Zithromax. The nicotine placement patches was ordered. Outpatient assessment should be done for obstructive sleep apnea disorder. Titrate oxygen supplementation, maintain pulse oxygen saturation 90% or greater. The patient could be transferred from the intensive care unit to telemetry floor as she has been noted stable. Arterial blood gas, the patient has been already ate obtained, which were noted adequate oxygenation without any evidence of acute hypercapnia. DVT prophylaxis. Other plan of management to be made based on the progression of the illness. Thanks for allowing me to participate in the care of this patient. JEANNETTE GRAY MD CM:CONSTR:REPORT OF CONSULTATION 1807 06/10/18 1712 interface
--- NOTE | ~2018-05-14 | WRIGHTHP ---
[place], [place] PATIENT HISTORY AND PHYSICAL EXAM NAME: [facility] #: [id number] UNIT #: [id number] ROOM: [facility] DOCTOR: ASHWIN ARANGO MD BIRTHDATE: [birth year] DOS: 05/14/2018 HISTORY OF PRESENT ILLNESS: The patient is a 53-year-old female with a past medical history of: 1. COPD. 2. Bipolar disorder. 3. GERD. 4. Esophagitis. 5. Vitamin D deficiency. 6. History of mixed hyperlipidemia. 7. Obesity. 8. Major depression, recurrent, moderate. 9. Type 2 diabetes mellitus. The patient presented to my office with significant wheezing and respiratory discomfort with recurrent chest pains. The patient agreed to hospital admission and she was sent over to ICU and started on treatment with corticosteroids, antibiotic, oxygen and she is still having some breathing difficulty, but she says she is slightly improved. No dizziness or fainting episode. No other GI or urinary symptoms. REVIEW OF SYSTEMS: RESPIRATORY: Increasing shortness of breath and wheezing, especially for last few days. GASTROINTESTINAL: No nausea, vomiting, diarrhea or constipation. CARDIOVASCULAR: No chest pain or palpitations. FAMILY HISTORY: Noncontributory. HOME MEDICATIONS: Levothyroxine, hydralazine, hydroxyzine, furosemide, metformin, Geodon, ropinirole, citalopram and Xanax. PHYSICAL EXAMINATION: GENERAL: Alert and oriented x 3, in some respiratory discomfort and obesity. VITAL SIGNS: Blood pressure 114/57, heart rate 98 beats per minute, breathing 16 times per minute, temperature 98 degrees Fahrenheit. HEENT AND NECK: Extraocular movements are intact. Sclerae are anicteric. Oral mucosa is moist and clean. No obvious facial weakness. Neck is supple without any lymphadenopathy. No thyromegaly. No JVD. No carotid arterial bruits. LUNGS: Clear to auscultation. No wheezing. No rhonchi. CARDIOVASCULAR SYSTEM: Heart rate is regular in rate and rhythm. S1 and S2 normally audible. No significant murmur or any other abnormal cardiac sounds. ABDOMEN: Soft, nontender. No obvious organomegaly. Bowel sounds are present. No obvious herniation. EXTREMITIES: Without significant cyanosis or edema. Warm to touch. CENTRAL NERVOUS SYSTEM: Alert and oriented x 3. Cranial nerves II-XII are intact. Speech is normal. The patient is able to move all extremities. Normal muscle strength. Deep tendon reflexes are equal on both sides. Plantars were downgoing. [place], [place] PATIENT HISTORY AND PHYSICAL EXAM NAME: [facility] #: [id number] UNIT #: [id number] ROOM: [facility] DOCTOR: ASHWIN ARANGO MD BIRTHDATE: [birth year] IMPRESSION: 1. The patient presenting with acute respiratory failure with both inspiratory and expiratory wheezing with labored breathing and hypoxemia, being treated with DuoNeb, corticosteroids, antibiotic and oxygen and she is still short of breath. I will consult Dr. Chaves, the scout executive to follow her and consider bronchoscopy to clear her airways and get good sputum cultures. Sputum cultures have been ordered and the patient is being observed closely in the ICU. 2. Type 2 diabetes mellitus. Blood sugars to be monitored and controlled. The patient kept on no concentrated sweet diet. The patient continued on metformin. 3. Generalized anxiety disorder, treated and controlled with Xanax as needed. 4. Gastroesophageal reflux disease and esophagitis, asymptomatic with Protonix. 5. Hypothyroidism, treated with levothyroxine. 6. Generalized anxiety disorder, treated with hydroxyzine as needed. 7. Major depression, recurrent, mild, treated with citalopram. ASHWIN ARANGO MD CM:HISPHYS:PATIENT HISTORY AND PHYSICAL EXAMINATION [id number] ASHWIN ARANGO MD 05/15/18 1226 interface
[~2018-05-14 16:12] MED LIST changes: +APRESOLINE25 MG PO; +ATORVASTATIN CA40 M1 PO; +AUGMENTIN 875875 MG PO; +GAVISCON ES TA1 EACH PO; +HYDROXYZINE HCL25 MG PO; +METFORMIN ER500 MG PO; -METFORMIN500 MG PO; +NICODERM CQ1 EAC2 T; +PRILOSEC20 M1 PO; +PROTONIX40 MG PO; +SYNTHROID,LEV125 MCG PO; -Synthroid,Levo25 MCG PO; +VITAMIN D-32000 UNI1 PO; +VITAMIN D31000 UNIT PO
[2018-05-14 16:30] VITALS: BP 101/49
[2018-05-14] MEDS ORDERED: CITALOPRAM20 MG PO (16:47)
[2018-05-14] MEDS ORDERED: ROPINIROLE HYD0.5 MG PO (16:52)
[2018-05-14] MEDS ORDERED: APRESOLINE25 MG PO (16:53)
[2018-05-14 20:00] VITALS: BP 97/43
[2018-05-15] VITALS: BP 106/58
[2018-05-15 04:00] VITALS: BP 109/65
[2018-05-15 08:00] VITALS: BP 114/57
[2018-05-15 12:00] VITALS: BP 110/60
[2018-05-15 16:00] VITALS: BP 117/60
[2018-05-15 20:00] VITALS: BP 122/61
[2018-05-16] VITALS: BP 107/53
[2018-05-16 04:00] VITALS: BP 106/51
[2018-05-16 05:26] LABS: HEMATOCRIT 32.2 % (37.0-47.0); HEMOGLOBIN 10.4 g/dl (12.0-16.0); MEAN CELL VOLUME 90.7 fl (81.0-99.0); MEAN CORPUSCULAR HGB 29.3 pg (27.0-31.0); MEAN CORPUSCULAR HGB CONC 32.3 g/dl (33.0-37.0); MEAN PLATELET VOLUME 9.2 fl (9.6-12.3); PLATELET COUNT AUTOMATED 369 10*3/uL (130-400); RED BLOOD COUNT 3.55 10*6/uL (4.10-5.10); RED CELL DISTRI WIDTH 15.5 % (0-14.5); WHITE BLOOD COUNT 25.5 10*3/uL (4.8-10.8)
[2018-05-16 05:57] LABS: BUN 20 mg/dl (7-24); CHLORIDE 107 mmol/L (98-107); CREATININE 0.96 mg/dL (0.55-1.02); POTASSIUM 3.8 mmol/L (3.5-5.1); SODIUM 141 mmol/L (136-145)
[2018-05-16 07:02] LABS: PLATELET SUFFICIENCY NORMAL (NORMAL); TOTAL CELLS COUNTED 100 #CELLS
[2018-05-16 08:00] VITALS: BP 98/53
[2018-05-16 12:00] VITALS: BP 103/58
[2018-05-16 14:51] LABS: ABG BASE EXCESS -2.9 mmol/L (-2.0-2.0); ABG HCO3 21.8 mmol/l (22-26); ABG O2 SATURATION 96.7 % (95-97); ARTERIAL BLOOD GAS PCO2 39.9 mmHg (35-45); ARTERIAL BLOOD GAS PH 7.355 (7.35-7.45)
[2018-05-16 16:00] VITALS: BP 110/55
[2018-05-16 20:00] VITALS: BP 112/49
[2018-05-17 04:00] VITALS: BP 113/56
[2018-05-17 06:39] LABS: HEMATOCRIT 32.1 % (37.0-47.0); HEMOGLOBIN 10.2 g/dl (12.0-16.0); MEAN CELL VOLUME 92.5 fl (81.0-99.0); MEAN CORPUSCULAR HGB 29.4 pg (27.0-31.0); MEAN CORPUSCULAR HGB CONC 31.8 g/dl (33.0-37.0); MEAN PLATELET VOLUME 9.1 fl (9.6-12.3); PLATELET COUNT AUTOMATED 350 10*3/uL (130-400); RED BLOOD COUNT 3.47 10*6/uL (4.10-5.10); RED CELL DISTRI WIDTH 15.9 % (0-14.5)
[2018-05-17 06:53] LABS: ALBUMIN 2.7 gm/dl (3.1-4.5); ALKALINE PHOSPHATASE 78 U/L (45-117); BUN 25 mg/dl (7-24); CHLORIDE 107 mmol/L (98-107); CREATININE 0.85 mg/dL (0.55-1.02); POTASSIUM 3.9 mmol/L (3.5-5.1); SGOT/AST 6 IU/L (3-35); SGPT/ALT 17 U/L (12-78); SODIUM 141 mmol/L (136-145); TOTAL PROTEIN 6.5 gm/dL (6.4-8.2)
[2018-05-17 07:04] LABS: PLATELET SUFFICIENCY NORMAL (NORMAL); TOTAL CELLS COUNTED 100 #CELLS
[2018-05-17 08:00] VITALS: BP 129/76
[2018-05-17 12:00] VITALS: BP 121/69
[2018-05-17 16:00] VITALS: BP 102/57; BP 162/68
[2018-05-17 20:00] VITALS: BP 115/50
[2018-05-18] VITALS: BP 115/52
[2018-05-18 06:38] LABS: HEMATOCRIT 32.6 % (37.0-47.0); HEMOGLOBIN 10.6 g/dl (12.0-16.0); MEAN CELL VOLUME 90.8 fl (81.0-99.0); MEAN CORPUSCULAR HGB 29.5 pg (27.0-31.0); MEAN CORPUSCULAR HGB CONC 32.5 g/dl (33.0-37.0); PLATELET COUNT AUTOMATED 362 10*3/uL (130-400); RED BLOOD COUNT 3.59 10*6/uL (4.10-5.10); RED CELL DISTRI WIDTH 15.7 % (0-14.5); WHITE BLOOD COUNT 21.5 10*3/uL (4.8-10.8)
[2018-05-18 07:00] LABS: ALBUMIN 2.8 gm/dl (3.1-4.5); ALKALINE PHOSPHATASE 73 U/L (45-117); BUN 29 mg/dl (7-24); CHLORIDE 106 mmol/L (98-107); CREATININE 0.85 mg/dL (0.55-1.02); POTASSIUM 3.9 mmol/L (3.5-5.1); SGOT/AST 6 IU/L (3-35); SGPT/ALT 19 U/L (12-78); SODIUM 141 mmol/L (136-145); TOTAL PROTEIN 6.9 gm/dL (6.4-8.2)
[2018-05-18 07:01] LABS: PLATELET SUFFICIENCY NORMAL (NORMAL); TOTAL CELLS COUNTED 100 #CELLS
[2018-05-18 12:00] VITALS: BP 109/58
[2018-05-18 16:00] VITALS: BP 114/54
[2018-05-18 20:00] VITALS: BP 114/43
[2018-05-19] VITALS (10 sets, daily range): BP systolic 90–133; BP diastolic 41–64
[2018-05-19 06:14] LABS: HEMOGLOBIN 10.7 g/dl (12.0-16.0); MEAN CELL VOLUME 90.9 fl (81.0-99.0); MEAN CORPUSCULAR HGB 29.5 pg (27.0-31.0); MEAN CORPUSCULAR HGB CONC 32.4 g/dl (33.0-37.0); MEAN PLATELET VOLUME 9.1 fl (9.6-12.3); PLATELET COUNT AUTOMATED 373 10*3/uL (130-400); RED BLOOD COUNT 3.63 10*6/uL (4.10-5.10); RED CELL DISTRI WIDTH 15.6 % (0-14.5); WHITE BLOOD COUNT 20.4 10*3/uL (4.8-10.8)
[2018-05-19 06:54] LABS: BUN 28 mg/dl (7-24); CHLORIDE 109 mmol/L (98-107); POTASSIUM 3.7 mmol/L (3.5-5.1); SODIUM 141 mmol/L (136-145)
[2018-05-19 07:17] LABS: ALKALINE PHOSPHATASE 68 U/L (45-117); SGOT/AST 9 IU/L (3-35); SGPT/ALT 20 U/L (12-78); TOTAL PROTEIN 6.7 gm/dL (6.4-8.2)
[2018-05-19 07:20] LABS: TOTAL CELLS COUNTED 100 #CELLS
[2018-05-19 07:21] LABS: PLATELET SUFFICIENCY NORMAL (NORMAL); SCHISTOCYTES FEW
[2018-05-20] VITALS: BP 138/59
[2018-05-20 06:20] LABS: HEMATOCRIT 33.2 % (37.0-47.0); HEMOGLOBIN 10.6 g/dl (12.0-16.0); MEAN CELL VOLUME 91.7 fl (81.0-99.0); MEAN CORPUSCULAR HGB 29.3 pg (27.0-31.0); MEAN CORPUSCULAR HGB CONC 31.9 g/dl (33.0-37.0); MEAN PLATELET VOLUME 9.1 fl (9.6-12.3); PLATELET COUNT AUTOMATED 369 10*3/uL (130-400); RED BLOOD COUNT 3.62 10*6/uL (4.10-5.10); RED CELL DISTRI WIDTH 15.8 % (0-14.5); WHITE BLOOD COUNT 21.4 10*3/uL (4.8-10.8)
[2018-05-20 06:48] LABS: BASOPHILS 1 % (0-1); PLATELET SUFFICIENCY NORMAL (NORMAL); TOTAL CELLS COUNTED 100 #CELLS
[2018-05-20 08:00] VITALS: BP 113/47
[2018-05-20 12:00] VITALS: BP 113/51
[2018-05-20] MEDS ORDERED: MEDROL DOSEPAK4 MG PO (14:18)
[2018-05-20] MEDS ORDERED: Ipratropium Brom3 ML NEB (14:18)
[2018-05-20 15:03] LABS: ACID FAST SPEC PROCESSING Concentration (.)
[2018-07-01 11:05] LABS: ACID FAST CULTURE Negative (.)
== END 2018-05-20 15:35 | disposition home or self-care (01) | DRG 189 ==
LOC: 5E 16:12 → ICCU 16:12 → 5E 05-17 10:22
PROVIDERS: Internal Medicine; Internal Medicine Critical Care Medicine
PROC: 0BC98ZZ Extirpation of Matter from Lingula Bronchus, Via Natural or Artificial Opening Endoscopic (ICD-10-PCS; principal; 2018-05-19)
PROC: 0BC48ZZ Extirpation of Matter from Right Upper Lobe Bronchus, Via Natural or Artificial Opening Endoscopic (ICD-10-PCS; 2018-05-19)
PROC: 0BC88ZZ Extirpation of Matter from Left Upper Lobe Bronchus, Via Natural or Artificial Opening Endoscopic (ICD-10-PCS; 2018-05-19)
PROC: 0BC58ZZ Extirpation of Matter from Right Middle Lobe Bronchus, Via Natural or Artificial Opening Endoscopic (ICD-10-PCS; 2018-05-19)
PROC: 0BC38ZZ Extirpation of Matter from Right Main Bronchus, Via Natural or Artificial Opening Endoscopic (ICD-10-PCS; 2018-05-19)
PROC: 0BC78ZZ Extirpation of Matter from Left Main Bronchus, Via Natural or Artificial Opening Endoscopic (ICD-10-PCS; 2018-05-19)
PROC: 0BC68ZZ Extirpation of Matter from Right Lower Lobe Bronchus, Via Natural or Artificial Opening Endoscopic (ICD-10-PCS; 2018-05-19)
PROC: 0BCB8ZZ Extirpation of Matter from Left Lower Lobe Bronchus, Via Natural or Artificial Opening Endoscopic (ICD-10-PCS; 2018-05-19)
PROC: 0BC18ZZ Extirpation of Matter from Trachea, Via Natural or Artificial Opening Endoscopic (ICD-10-PCS; 2018-05-19)
DX: J96.21 Acute and chronic respiratory failure with hypoxia (principal); J44.1 Chronic obstructive pulmonary disease with (acute) exacerbation; T17.590A Other foreign object in bronchus causing asphyxiation, initial encounter; E44.1 Mild protein-calorie malnutrition; F31.32 Bipolar disorder, current episode depressed, moderate; D64.9 Anemia, unspecified; F41.1 Generalized anxiety disorder; K21.0 Gastro-esophageal reflux disease with esophagitis; E55.9 Vitamin D deficiency, unspecified; D72.829 Elevated white blood cell count, unspecified; I95.9 Hypotension, unspecified; E11.65 Type 2 diabetes mellitus with hyperglycemia; T38.0X5A Adverse effect of glucocorticoids and synthetic analogues, initial encounter; X58.XXXA Exposure to other specified factors, initial encounter; E03.9 Hypothyroidism, unspecified; E78.2 Mixed hyperlipidemia; E66.8 Other obesity; F17.210 Nicotine dependence, cigarettes, uncomplicated; Z88.1 Allergy status to other antibiotic agents; Z88.8 Allergy status to other drugs, medicaments and biological substances; Z79.899 Other long term (current) drug therapy; Y92.89 Other specified places as the place of occurrence of the external cause; Y93.89 Activity, other specified; Y99.8 Other external cause status; Z68.34 Body mass index [BMI] 34.0-34.9, adult

== ENCOUNTER 2018-10-06 14:16 | Inpatient (IN) | payer OTHER ==
[~2018-10-06] VITALS: Ht 162.5 cm; Wt 89.8 kg
--- NOTE | ~2018-10-06 | PR ---
[place], [place] PROGRESS NOTE [id number] UNIT #: [id number] ROOM: 428 DOCTOR: ASHWIN ARANGO MD BIRTHDATE: [birth year] DOS: 10/08/2018 SUBJECTIVE: The patient's breathing is gradually improving with treatment. She still has epigastric and right upper quadrant pains. OBJECTIVE: VITAL SIGNS: Blood pressure 121/65, heart rate 86 beats per minute, breathing 20 times per minute, temperature 98 degrees Fahrenheit. GENERAL APPEARANCE: The patient is alert and oriented x 3, in no visible distress. HEENT AND NECK: Exam within normal limits. CARDIOVASCULAR SYSTEM: Heart rate is regular in rate and rhythm. S1 and S2 normally audible. LUNGS: Clear to auscultation. ABDOMEN: Epigastric and right upper quadrant pains. EXTREMITIES: Without significant cyanosis or edema. IMPRESSION: 1. Right upper quadrant pains, which could be from biliary dyskinesia. No gallbladder abnormality on ultrasound. I will check a HIDA scan with gallbladder ejection fraction. 2. Acute exacerbation of asthma with increased shortness of breath and wheezing with acute on chronic respiratory failure, being treated with bronchodilators and inhaled corticosteroids. 3. Type 2 diabetes mellitus. Blood sugars have been well controlled recently. 4. Obesity with BMI of 34. The patient working with dietary. 5. Major depression, recurrent, moderate, being treated with Zyprexa. 6. Allergic reaction to AZITHROMYCIN. Treated with small dose of prednisone. Skin rash is improving. Medication was stopped and the patient started on Bactrim-DS. ASHWIN ARANGO MD CM:PNTRANS [id number] ASHWIN ARANGO MD 10/09/18 0459 interface
--- NOTE | ~2018-10-06 | DS ---
[place], [place] DISCHARGE SUMMARY NAME: NELLI CANTRELL UNIT #: [id number] ROOM: 428 DOCTOR: ASHWIN ARANGO MD BIRTHDATE: [birth year] DOS: 10/09/2018 DISCHARGE DIAGNOSES: 1. Acute exacerbation of asthma. 2. Right upper quadrant pains, further workup pending. 3. Type 2 diabetes mellitus. 4. Obesity, BMI of 34. 5. Major depression, recurrent, moderate. 6. ALLERGIC REACTION TO AZITHROMYCIN. The patient admitted from the office with increased shortness of breath and she was diagnosed with having acute exacerbation of asthma, which was treated with corticosteroids, oxygen, nebulizer treatments and her breathing has improved to the point she can be discharged to home on inhaled corticosteroid and seen in my office by me on Friday. Right upper quadrant pains, possibly biliary dyskinesia. I made two attempts to order HIDA scan on the patient, but somehow did not get into the system. I did not get performed. The patient has some nausea, but she is tolerating diet, so she will be discharged to home today and she will follow up with me on Friday. We will now order a HIDA scan with ejection fraction as an outpatient. Hypothyroidism, replaced with levothyroxine. Obesity, BMI of 34. The patient working on diet. Type 2 diabetes mellitus with much better controlled blood sugars that before staying generally below 150, on metformin, which is being continued. Ultrasound of the abdomen and pelvis was normal. Cardiac enzymes are normal. DISCHARGE MANAGEMENT: Geodon 160 mg at bedtime, furosemide 20 mg daily, metformin 500 mg b.i.d., Protonix 40 mg daily, levothyroxine 125 mcg daily, ropinirole 0.5 mg b.i.d., benztropine 1 mg at bedtime, DuoNeb q.4 hours and Pulmicort 0.5 mg b.i.d. Xanax 1 mg b.i.d. p.r.n. for anxiety. [place], [place] DISCHARGE SUMMARY NAME: NELLI CANTRELL UNIT #: [id number] ROOM: 428 DOCTOR: ASHWIN ARANGO MD BIRTHDATE: [birth year] ASHWIN ARANGO MD CM:MIGUE [id number] ASHWIN ARANGO MD 10/09/18 1333 interface
--- NOTE | ~2018-10-06 | WRIGHTHP ---
[place], [place] PATIENT HISTORY AND PHYSICAL EXAM NAME: NELLI CANTRELL [facility] #: [id number] UNIT #: [id number] ROOM: 428 DOCTOR: ASHWIN ARANGO MD BIRTHDATE: [birth year] DOS: 10/06/2018 HISTORY OF PRESENT ILLNESS: The patient is a 53-year-old female who presented to my office yesterday with complaints of severely increased shortness of breath and wheezing for a few days and right upper quadrant pains. The patient was admitted for acute exacerbation of asthma, shortness of breath, wheezing, tachypnea and acute or chronic respiratory failure. The patient is to be further evaluated with an ultrasound of her gallbladder and a surgical evaluation for right upper quadrant pains. No dizziness or fainting episodes. REVIEW OF SYSTEMS: RESPIRATORY: Increasing shortness of breath and wheezing. GASTROINTESTINAL: Some nausea, no vomiting. CARDIOVASCULAR: No significant chest pains. FAMILY HISTORY: Noncontributory. HOME MEDICATIONS: Furosemide, metformin, Protonix, levothyroxine, Zyprexa, ropinirole, benztropine, Xanax. ALLERGIES: KNOWN ALLERGIES TO AZITHROMYCIN, GENTAMICIN, QUINOLONES, CEPHALOSPORINS AND COMPAZINE. PHYSICAL EXAMINATION: GENERAL: Alert and oriented x 3, obese, in no visible distress, but looking uncomfortable. Obesity. VITAL SIGNS: Blood pressure 117/68, heart rate of 82 beats per minute, afebrile, breathing 22 times per minute. HEENT AND NECK: Extraocular movements are intact. Sclerae are anicteric. Oral mucosa is moist and clean. No obvious facial weakness. Neck is supple without any lymphadenopathy. No thyromegaly. No JVD. No carotid arterial bruits. LUNGS: Decreased breath sounds all over and expiratory wheezing all over. CARDIOVASCULAR SYSTEM: Heart rate is regular in rate and rhythm. S1 and S2 normally audible. No significant murmur or any other abnormal cardiac sounds. ABDOMEN: Soft, nontender. Bowel sounds are present. No obvious herniation. The patient had right upper quadrant tenderness. No rigidity, guarding or rebound tenderness. No obvious organomegaly. EXTREMITIES: Without significant cyanosis or edema. Warm to touch. CENTRAL NERVOUS SYSTEM: Alert and oriented x 3. Cranial nerves II-XII are intact. Speech is normal. The patient is able to move all extremities. Normal muscle strength. Deep tendon reflexes are equal on both sides. Plantars were downgoing. LABORATORY DATA: Chest x-ray is normal. Normal serum electrolytes. Blood sugar at 110. Cardiac enzymes normal so far. White cell count elevated 11,700. IMPRESSION: 1. Acute cholecystitis. Surgical consult has been obtained and I am getting an ultrasound of the gallbladder and liver. The patient has mild leukocytosis. 2. Acute exacerbation of asthma with shortness of breath and wheezing and acute [place], [place] PATIENT HISTORY AND PHYSICAL EXAM NAME: NELLI CANTRELL [facility] #: [id number] UNIT #: [id number] ROOM: [facility] DOCTOR: ASHWIN ARANGO MD BIRTHDATE: [birth year] on chronic respiratory failure to be treated with inhaled corticosteroids, bronchodilators, oxygen as needed, breathing is improving. 3. Type 2 diabetes mellitus. Blood sugars are monitored and treated and are staying normal with treatment. The patient on metformin. 4. Obesity, BMI of 34, patient to work with dietary. 5. Major depression, recurrent, moderate, treated and being followed. 6. Hypothyroidism, replaced with levothyroxine. ASHWIN ARANGO MD CM:HISPHYS:PATIENT HISTORY AND PHYSICAL EXAMINATION [id number] ASHWIN ARANGO MD 10/07/18 1120 interface
[~2018-10-06 14:16] MED LIST changes: +Ipratropium Brom3 ML NEB; +ROPINIROLE HYD0.5 MG PO
[2018-10-06 14:30] VITALS: BP 117/68
--- NOTE | 2018-10-06 14:30 | NUR ---
A 53, admitted to , under the services of Dr. CONCHITA SINHA,ASHWIN Dalton with a diagnosis of ASTHMA. Chief complaint is SHORTNESS OF BREATH. Patient arrived via wheel chair from [place]. Monitor applied. Initial assessment completed. Vital signs taken and recorded. DR. CONCHITA SINHA,ASHWIN Dalton notified of admission to the unit. Orders received. See assessment for past medical history, medications and allergies. Patient and/or family oriented to unit. [facility] visitation policy reviewed. Clothing/patient valuable form completed. ITALIA KOEHLER
[2018-10-06] MEDS ORDERED: NATURE'S BLEND F1 MG PO (15:47)
[2018-10-06 16:00] VITALS: BP 110/55
--- NOTE | 2018-10-06 19:42 | NUR ---
CALLED DR ARANGO AND ORDERS RECEIVED FOR TYLENOL AND NOTIFIED OF ALLERGY OF AZITHROMICIN AND ORDERED DOXYCYCLINE
[2018-10-06 20:00] VITALS: BP 97/52
--- NOTE | 2018-10-06 22:30 | NUR ---
Hep Lock discontinued, Site infiltrated. Pressure applied. Sterile dressing applied. IV started right hand with #22 angiocath after 2nd attempts. The IV site was prepped with Chloraprep. Heparin lock attached. Sterile dressing applied. Patient tolerated precedure well. Procedure performed according to [facility] policy & procedure. ALKA ANN
[2018-10-07] VITALS: BP 96/48
--- NOTE | 2018-10-07 04:57 | NUR ---
24 HR chart check completed.
[2018-10-07 08:00] VITALS: BP 102/62
[2018-10-07 08:16] LABS: BASO # 0.1 10*3/uL (0.0-0.1); BASO % 0.5 % (0.0-1.0); EOS # 0.2 10*3/uL (0.0-0.4); EOS % 1.3 % (1.0-4.0); HEMATOCRIT 34.6 % (37.0-47.0); HEMOGLOBIN 11.3 g/dl (12.0-16.0); LYMPH # 4.8 10*3/uL (1.3-4.4); LYMPH % 40.6 % (27.0-41.0); MEAN CORPUSCULAR HGB 28.8 pg (27.0-31.0); MEAN CORPUSCULAR HGB CONC 32.7 g/dl (33.0-37.0); MEAN PLATELET VOLUME 8.9 fl (9.6-12.3); MONO # 0.6 10*3/uL (0.1-1.0); MONO % 4.9 % (3.0-9.0); NEUT # 6.1 10*3/uL (2.3-7.9); NEUT % 52.4 % (47.0-73.0); PLATELET COUNT AUTOMATED 376 10*3/uL (130-400); RED BLOOD COUNT 3.93 10*6/uL (4.10-5.10); RED CELL DISTRI WIDTH 15.7 % (0-14.5); WHITE BLOOD COUNT 11.7 10*3/uL (4.8-10.8)
[2018-10-07 08:30] LABS: BUN 15 mg/dl (7-24); CHLORIDE 109 mmol/L (98-107); POTASSIUM 3.6 mmol/L (3.5-5.1); SODIUM 141 mmol/L (136-145)
--- NOTE | 2018-10-07 08:30 | NUR ---
[employer] Tender in to talk to patient. Patient states lives at home with her boyfriend and her daughter. There are 15 steps in the home. Physician: Dr. Jose Todd Pharmacy: [facility] Home health services: none Patient's level of ADLs: INDEPENDENT Patient has working utilities: yes DME: had a nebulizer but it broke and will need a new one if breathing treatments are needed at home Follow-up physician's appointment after d/c: will be made prior to discharge Does patient want to access PORTAL?: no Discharge plan discussed with patient. She lives at home with her boyfriend and her daughter. She is independent in her ADLs and ambulation. Discussed home health care services and she denies any home needs at this time. When medically stable she will be discharged to home. Daughter will provide transportation on discharge. ANTONIO KEYS
--- NOTE | 2018-10-07 10:59 | NUR ---
PHYSICIAN WAS NOTIFIED OF DR. AYALA CONSULT. RESPONSE OF NOTIFICATION WAS OK THANKS. ADRIANE BAILEY
[2018-10-07 12:00] VITALS: BP 100/52
[2018-10-07 16:00] VITALS: BP 107/53
[2018-10-07 20:00] VITALS: BP 106/44
--- NOTE | 2018-10-07 22:51 | NUR ---
24 HR chart check completed.
[2018-10-08] VITALS: BP 117/55
[2018-10-08 08:01] VITALS: BP 110/52
--- NOTE | 2018-10-08 10:44 | NUR ---
Spoke with Dr. Todd because patient broke out in a rash. The rash was faint red in color, non raised, and patient had no c/o itching, prickling or pain. See new orders.
[2018-10-08 12:00] VITALS: BP 111/63
[2018-10-08 16:00] VITALS: BP 121/65
[2018-10-08 20:00] VITALS: BP 128/66
[2018-10-09] VITALS: BP 141/64
[2018-10-09 08:00] VITALS: BP 134/66
--- NOTE | 2018-10-09 08:00 | NUR ---
Master Tax Advisor in to see patient. No new needs or request at this time. She denies any home needs. When medically stable she will be discharged to home.
--- NOTE | 2018-10-09 08:00 | NUR ---
ASSESSMENT COMPLETE. PT. IS LAYING ON BACK IN BED. CALL MARIA IN REACH. NO COMPLAINTS AT THIS TIME.
--- NOTE | 2018-10-09 08:22 | NUR ---
24 HR chart check completed.
[2018-10-09 11:51] VITALS: BP 131/62
[2018-10-09] MEDS ORDERED: PULMICORT RESP0.5 MG NEB (12:36)
--- NOTE | 2018-10-09 13:07 | NUR ---
IV SITE DC'D. CATH INTACT. SITE ASYMPTOMATIC. PT TOLERATED WELL. [facility]
--- NOTE | 2018-10-09 13:08 | NUR ---
Discharge instructions reviewed with patient/family. Patient receptive and verbalizes understanding. Follow-up care arranged. Written instructions given to patient/family. HUGH NULL
[2018-10-31] MEDS ORDERED: CYMBALTA30 MG PO (22:35)
[2018-10-31] MEDS ORDERED: CYMBALTA60 MG PO (22:36)
[2018-11-01] MEDS ORDERED: ASPIRIN ADULT L81 M1 PO (00:23)
[2018-11-01] MEDS ORDERED: TOPROL XL25 MG PO (00:24)
[2018-11-01] MEDS ORDERED: METFORMIN ER500 MG PO (00:24)
[2018-11-01] MEDS ORDERED: PREDNISONE10 M1 PO (00:25)
[2018-11-01] MEDS ORDERED: RANEXA500 M1 PO (00:26)
[2018-11-02] MEDS ORDERED: IMDUR SA30 MG PO (18:56)
[2018-11-02] MEDS ORDERED: RANEXA500 M1 PO (18:56)
== END 2018-10-09 13:08 | disposition home or self-care (01) | DRG 444 ==
LOC: 4E 14:16
PROVIDERS: ADMIT Internal Medicine
DX: K82.8 Other specified diseases of gallbladder (principal); J96.20 Acute and chronic respiratory failure, unspecified whether with hypoxia or hypercapnia; J45.901 Unspecified asthma with (acute) exacerbation; K81.0 Acute cholecystitis; F33.1 Major depressive disorder, recurrent, moderate; K76.0 Fatty (change of) liver, not elsewhere classified; E78.2 Mixed hyperlipidemia; E66.01 Morbid (severe) obesity due to excess calories; F17.210 Nicotine dependence, cigarettes, uncomplicated; E03.9 Hypothyroidism, unspecified; E11.9 Type 2 diabetes mellitus without complications; Z68.34 Body mass index [BMI] 34.0-34.9, adult; Z88.1 Allergy status to other antibiotic agents; Z80.8 Family history of malignant neoplasm of other organs or systems; Z88.8 Allergy status to other drugs, medicaments and biological substances; Z79.899 Other long term (current) drug therapy

== ENCOUNTER 2018-10-16 14:23 | Inpatient (IN) | payer OTHER ==
[~2018-10-16] VITALS: Ht 162.6 cm; Wt 90.8 kg
--- NOTE | ~2018-10-16 | EKG ---
[place], [place] ELECTROCARDIOGRAM REPORT NAME: NELLI CANTRELL UNIT #: [id number] ROOM: 412 DOCTOR: LAISHA DRAFT REPORT BIRTHDATE: [birth year] [facility] Test Date: 2018-10-17 Test Time: 07:40:52 Pat Name: NELLI CANTRELL Department: Room: [facility] 2 Gender: F Radiographer Angiogram: SHARIF : 1965 Requested By: CLARE DINH Order Number: [id number] Reading MD: Benito Whitaker MD Measurements Intervals [place] Rate: 70 P: 57 NH: 171 QRS: 35 QRSD: 109 T: 13 QT: 443 QTc: 479 Interpretive Statements Sinus rhythm RSR' in V1 or V2, right VCD or RVH Baseline wander in lead(s) V4 Compared to ECG 10/16/2018 16:15:25 Right ventricular hypertrophy now present RSR' in V1 or V2 now present Electronically Signed On 10-17-2018 12:05:30 PST by Benito Whitaker MD CM:EKGRPT:ELECTROCARDIOGRAM REPORT [id number] CLARE INTERIANO DRAFT REPORT CLARE DINH MD
--- NOTE | ~2018-10-16 | DS ---
[place], [place] DISCHARGE SUMMARY NAME: NELLI CANTRELL UNIT #: [id number] ROOM: 412 DOCTOR: ASHWIN ARANGO MD BIRTHDATE: [birth year] DOS: DATE OF DISCHARGE: 10/20/2018 DISCHARGE DIAGNOSES: 1. The patient with abnormal cardiac stress test, going for heart catheterization to [facility] on 10/20/2018. 2. Chronic obstructive pulmonary disease and centrilobular emphysema. 3. Type 2 diabetes mellitus. 4. Hypothyroidism. 5. Generalized anxiety disorder. 6. Mixed hyperlipidemia. 7. Major depression, recurrent, mild. 8. Diabetic gastroparesis with recurrent nausea and vomiting. 9. History of right upper quadrant pains. 10. Obesity with BMI of 34. 11. Vitamin D deficiency. 12. Mixed hyperlipidemia. 13. Bipolar disorder. 14. Hypothyroidism. The patient was admitted with left-sided recurrent chest pains and the cardiac stress test came back as abnormal, although cardiac enzymes were negative. The patient is going for heart catheterization to [facility] tomorrow morning and she is symptom free. 1. Centrilobular emphysema with chronic shortness of breath and some wheezing, stable at this time. 2. Hypothyroidism, replaced with thyroid supplements. 3. Mixed hyperlipidemia, treated with atorvastatin. 4. Vitamin D deficiency, replaced with supplements. 5. Type 2 diabetes mellitus, reasonably controlled with present treatment. DISCHARGE MANAGEMENT: Sublingual nitroglycerin p.r.n., metoprolol 25 mg daily, aspirin 81 mg a day, Lipitor 20 mg a day, Zofran as needed, Cymbalta 30 mg a day, Zyprexa 60 mg b.i.d., ropinirole 0.5 mg b.i.d., Tylenol p.r.n., DuoNebs q.i.d., Xanax 1 mg t.i.d. p.r.n. [place], [place] DISCHARGE SUMMARY NAME: NELLI CANTRELL UNIT #: [id number] ROOM: 412 DOCTOR: ASHWIN ARANGO MD BIRTHDATE: [birth year] ASHWIN ARANGO MD CM:MIGUE [id number] ASHWIN ARANGO MD 10/20/18 0745 interface
--- NOTE | ~2018-10-16 | CON ---
[place], [place] REPORT OF CONSULTATION NAME: NELLI CANTRELL [facility] #: [id number] UNIT #: [id number] ROOM: 412 DOCTOR: CLARE DINH MD BIRTHDATE: [birth year] DOS: 10/16/2018 CARDIOLOGY CONSULTATION The patient was seen. REASON FOR CONSULTATION: Chest pain. HISTORY OF PRESENT ILLNESS: The patient is a 53-year-old woman who has no previously documented coronary disease, but she does have several risk factors for coronary artery disease. She was recently hospitalized a few weeks ago with an acute exacerbation of chronic lung disease and was treated with antibiotics and briefly with steroids. She was continuing, however, to have wheezing and breathlessness. She was seen today by her primary physician, Dr. Todd, while in the office she indicated that she did have several brief episodes of chest pain last night. She describes these as sharp, substernal pains, which could radiate into her shoulder, neck and left arm. They lasted a few minutes before they resolved spontaneously. They occurred at rest and were associated with diaphoresis and dyspnea. Her electrocardiogram in Dr. Todd's office did show nonspecific T-wave abnormalities and therefore she was hospitalized for further assessment. Thus far, her electrocardiogram on arrival here shows no acute changes and her initial troponin level is normal. PAST HISTORY: Includes: 1. Long-term and ongoing tobacco abuse. 2. Asthma. 3. Type 2 diabetes mellitus. 4. Hypothyroidism. 5. Obesity. FAMILY HISTORY: The patient's son had a heart attack in his 30s. Her mother had heart disease in her 50s. REVIEW OF SYSTEMS: The patient denies diplopia or loss of vision. She has had weakness and dyspnea with exertion. She denies focal weakness. She denies lightheadedness or syncope. She has had dyspnea associated with chest pain as noted above. She denies nausea or vomiting. She denies change in bowel or bladder habits. She denies blood in her stools or urine. She denies hemoptysis or hematemesis. She denies any skin rashes. She denies heat or cold intolerance and denies polyuria or polydipsia. She has not had any leg swelling and denies a history of deep venous thromboses. The remainder of the review of systems is negative except as noted above. MEDICATIONS: Prior to admission, Pulmicort by nebulizer q. 12 hours, Atrovent with albuterol by nebulizer q. 4 hours, alprazolam 1 mg 3 times a day as needed, atorvastatin 40 mg at bedtime, benztropine 1 mg at bedtime, cholecalciferol 2000 units daily, duloxetine 30 mg daily, folic acid 1 mg daily, furosemide 20 mg daily, levothyroxine 125 mcg daily, metformin 500 mg twice a day, pantoprazole 40 mg daily, ropinirole 0.5 mg b.i.d. and Geodon 60 mg b.i.d. [place], [place] REPORT OF CONSULTATION NAME: NELLI CANTRELL UNIT #: [id number] ROOM: 412 DOCTOR: CLARE DINH MD BIRTHDATE: [birth year] ALLERGIES: THE PATIENT LISTS ALLERGIES TO AZITHROMYCIN, DOXYCYCLINE, GENTAMICIN, CEPHALEXIN, LEVOFLOXACIN AND PROCHLORPERAZINE. SOCIAL HISTORY: The patient does smoke, although she is trying to cut back. PHYSICAL EXAMINATION: GENERAL: The patient is a white female who is awake, alert and oriented. VITAL SIGNS: Pulse is 90 and regular, blood pressure is 109/58. She is afebrile. She weighs 90.8 kg and has a body mass index of 34.4. HEENT: Normocephalic and atraumatic. Extraocular muscles are intact. Sclerae are clear. Pupils are equal, round and react to light. The oral mucosa is moist. Tongue is midline. NECK: Supple. She has no jugular distention. Carotids are full. I heard no bruits. She had no neck or supraclavicular masses and no thyromegaly. LUNGS: Respirations were unlabored at rest, but she did have obvious audible wheezing. She had marked expiratory prolongation bilaterally and wheezing in all lung shaw. There were no rales. She had no presacral edema and no chest wall tenderness. I could not reproduce her pains by palpation of her anterior chest or shoulders. CARDIOVASCULAR: Her heart had a regular rhythm without murmurs, rubs or gallops. The PMI was not displaced. There was no precordial heave, lift or thrill. ABDOMEN: Soft and normally active without masses, organomegaly or bruits. She did have mild epigastric tenderness, but this did not reproduce her chest pains. EXTREMITIES: Showed no clubbing, cyanosis or edema. She had no palpable cords or Homans sign. Pedal pulses were full and equal bilaterally. LABORATORY DATA: I reviewed her electrocardiograms and they showed no acute changes. LABORATORY STUDIES: So far only include a troponin, which was normal. IMPRESSIONS: 1. Atypical chest pain. 2. Multiple risk factors for coronary artery disease including ongoing cigarette abuse and a strong family history of coronary artery disease. 3. Anxiety and depression. 4. Obesity. PLAN: The patient was strongly advised to quit smoking immediately. I also told her partner that he should stop smoking immediately as well. For now, I would encourage aggressive treatment of her lung disease. We will follow serial enzymes and EKGs. If she shows no signs of an acute myocardial infarction overnight, then she could be discharged from a cardiac standpoint and have further evaluation, which should include a pharmacologic stress test early next week as an outpatient. [facility] and I thank Dr. Todd for asking our advice regarding the patient's care. [place], [place] REPORT OF CONSULTATION NAME: NELLI CANTRELL UNIT #: [id number] ROOM: 412 DOCTOR: CLARE DINH MD BIRTHDATE: [birth year] CLARE DINH MD CM:CONSTR:REPORT OF CONSULTATION 1749 10/17/18 0026 interface
--- NOTE | ~2018-10-16 | EKG ---
[place], [place] ELECTROCARDIOGRAM REPORT NAME: NELLI CANTRELL UNIT #: [id number] ROOM: 412 DOCTOR: LAISHA DRAFT REPORT BIRTHDATE: [birth year] [facility] Test Date: 2018-10-16 Test Time: 16:15:25 Pat Name: NELLI CANTRELL Department: Room: 412 2 Gender: F Customs Patrol Officer: Faviola Reed : 1965 Requested By: CLARE DINH Order Number: [id number] Reading MD: Clare Dinh MD Measurements Intervals [place] Rate: 90 P: 34 MT: 158 QRS: 33 QRSD: 140 T: 9 QT: 425 QTc: 520 Interpretive Statements Sinus rhythm IVCD, consider atypical RBBB Compared to ECG 05/18/2018 09:12:20 No significant change Electronically Signed On 10-16-2018 16:27:49 PST by Clare Dinh MD CM:EKGRPT:ELECTROCARDIOGRAM REPORT [id number] CLARE DINH MD EPIPHANY DRAFT REPORT CLARE DINH MD
--- NOTE | ~2018-10-16 | WRIGHTHP ---
[place], [place] PATIENT HISTORY AND PHYSICAL EXAM NAME: NELLI CANTRELL [facility] #: [id number] UNIT #: [id number] ROOM: 412 DOCTOR: ASHWIN ARANGO MD BIRTHDATE: [birth year] DOS: 10/16/2018 HISTORY OF PRESENT ILLNESS: The patient is a 53-year-old female with a past medical history of: 1. COPD. 2. Right upper quadrant pains. 3. Type 2 diabetes mellitus. 4. Obesity with BMI of 34. 5. Major depression, recurrent, moderate. 6. Generalized anxiety disorder. 7. Vitamin D deficiency. 8. Mixed hyperlipidemia. 9. Major depression, recurrent, moderate. 10. Bipolar disorder. 11. Hypothyroidism. The patient presented to my office with left-sided chest pains, which have been recurrent. They were taken as abdominal pains, but now the patient is complaining in her chest and saying they have been recurrent for about a year and that she has not had a cardiac stress test. The patient was sent to [facility] for an admission and further workup. Admitted to a monitored bed and cardiac enzymes were ordered, which were all negative. The patient with chronic shortness of breath, chronic recurrent nausea. REVIEW OF SYSTEMS: CARDIOVASCULAR SYSTEM: Recurrent left-sided chest pain. GASTROINTESTINAL: Chronic recurrent nausea. RESPIRATORY: Chronic shortness of breath and mild wheezing. FAMILY HISTORY: Noncontributory. ALLERGIES: Known allergies to CEPHALEXIN, DOXYCYCLINE, ERYTHROMYCIN, GENTAMICIN AND QUINOLONES. PHYSICAL EXAMINATION: GENERAL APPEARANCE: The patient is alert and oriented x 3, in no visible distress, obese. HEENT AND NECK: Extraocular movements are intact. Sclerae are anicteric. Oral mucosa is moist and clean. No obvious facial weakness. Neck is supple without any lymphadenopathy. No thyromegaly. No JVD. No carotid arterial bruits. LUNGS: Clear to auscultation. Mild expiratory wheezing. No rhonchi. CARDIOVASCULAR SYSTEM: Heart rate is regular in rate and rhythm. S1 and S2 normally audible. No significant murmur or any other abnormal cardiac sounds. ABDOMEN: Soft, nontender. No obvious organomegaly. Bowel sounds are present. No obvious herniation. EXTREMITIES: Without significant cyanosis or edema. Warm to touch. CENTRAL NERVOUS SYSTEM: Alert and oriented x 3. Cranial nerves II-XII are intact. Speech is normal. The patient is able to move all extremities. Normal muscle strength. Deep tendon reflexes are equal on both sides. Plantars were downgoing. [place], [place] PATIENT HISTORY AND PHYSICAL EXAM NAME: NELLI CANTRELL [facility] #: [id number] UNIT #: [id number] ROOM: [facility] DOCTOR: ASHWIN ARANGO MD BIRTHDATE: [birth year] LABORATORY DATA: Normal cardiac enzymes x 3. D-dimers were normal. IMPRESSION: 1. Recurrent chest pains with the patient at high risk for coronary artery disease because of obesity, diabetes mellitus, smoking history to be tested with a cardiac stress test prior to discharge for her safety. The patient kept on a personnel monitor. 2. The patient with centrilobular emphysema with chronic shortness of breath, has been kept on bronchodilators. 3. Type 2 diabetes mellitus with better controlled blood sugars. Blood sugars being monitored and treated and the patient can kept on no concentrated sweet diet. 4. Hypothyroidism, to be replaced with supplements. 5. Generalized anxiety disorder. I continued her Xanax. 6. Mixed hyperlipidemia, treated with atorvastatin. 7. Vitamin D deficiency, replaced with supplements. 8. Major depression recurrent and moderate, treated with Cymbalta and controlled. 9. Recurrent nausea, vomiting and diabetic gastroparesis to be treated with Zofran as needed. ASHWIN ARANGO MD CM:HISPHYS:PATIENT HISTORY AND PHYSICAL EXAMINATION 1610 1857 ASHWIN ARANGO MD 10/17/18 2003 interface
--- NOTE | ~2018-10-16 | PR ---
[place], [place] PROGRESS NOTE NAME: NELLI CANTRELL [facility] #: [id number] UNIT #: [id number] ROOM: 412 DOCTOR: ASHWIN ARANGO MD BIRTHDATE: [birth year] DOS: 10/18/2018 SUBJECTIVE: The patient is breathing better and scheduled for a cardiac stress test tomorrow. OBJECTIVE: VITAL SIGNS: Blood pressure 120/49, heart rate 68 beats per minute, breathing 20 times per minute, temperature 98 degrees Fahrenheit. GENERAL APPEARANCE: Obesity. The patient is alert and oriented x 3, in no visible distress. HEENT AND NECK: Exam within normal limits. CARDIOVASCULAR SYSTEM: Heart rate is regular in rate and rhythm. S1 and S2 normally audible. LUNGS: Clear to auscultation. ABDOMEN: Soft, nontender. No obvious organomegaly. Bowel sounds are present. EXTREMITIES: Without significant cyanosis or edema. IMPRESSION: 1. Left-sided chest pains, recurrent. Patient is scheduled for a cardiac stress test tomorrow. Cardiac enzymes were negative. Patient is a high risk for coronary artery disease. 2. Centrilobular emphysema with chronic shortness of breath and mild wheezing, treated with bronchodilators. 3. Type 2 diabetes mellitus. Blood sugars being monitored and reasonably controlled. 4. Hypothyroidism, replaced with levothyroxine. 5. Generalized anxiety disorder, treated with Xanax as needed. 6. Mixed hyperlipidemia, treated with atorvastatin, followed with blood work. 7. Major depression, recurrent, moderate, treated with Cymbalta, controlled. 8. Recurrent nausea and vomiting and diabetic gastroparesis, being treated with Zofran as needed. ASHWIN ARANGO MD CM:PNTRANS 1745 0 ASHWIN ARANGO MD 10/19/18220 interface
--- NOTE | ~2018-10-16 | ST ---
[place], [place] EXERCISE STRESS TEST REPORT NAME: NELLI CANTRELL [facility] #: [id number] UNIT #: [id number] ROOM: 412 DOCTOR: GEGE HANNAH MD BIRTHDATE: [birth year] DOS: 10/19/2018 LEXISCAN STRESS EKG REPORT REFERRING PHYSICIAN: Dr. Todd. INDICATION: Central chest pain. The patient underwent standard protocol Lexiscan stress EKG. Baseline EKG is in normal sinus, nonspecific ST-T wave changes with heart rate of 76 and blood pressure 124/78. The patient's peak heart was 100 with a blood pressure 130/58. The patient had no chest pain. No ischemic EKG changes or arrhythmias. SUMMARY OF FINDINGS: Unremarkable Lexiscan stress EKG. Please see separate report for perfusion scan results. GEGE HANNAH MD CM:STRESS:EXERCISE STRESS TEST REPORT [id number] GEGE HANNAH MD
[~2018-10-16 14:23] MED LIST changes: +NATURE'S BLEND F1 MG PO; +PULMICORT RESP0.5 MG NEB
[2018-10-16 14:45] VITALS: BP 132/51
[2018-10-16] MEDS ORDERED: DULOXETINE HCL30 MG PO (15:02)
[2018-10-16 16:00] VITALS: BP 109/58
[2018-10-16 20:00] VITALS: BP 113/63
[2018-10-17] VITALS: BP 116/53
[2018-10-17 08:00] VITALS: BP 120/60
[2018-10-17 12:00] VITALS: BP 98/50
[2018-10-17 16:00] VITALS: BP 94/56
[2018-10-17 20:00] VITALS: BP 117/45
[2018-10-18] VITALS: BP 102/47
[2018-10-18 08:00] VITALS: BP 110/60
[2018-10-18 12:00] VITALS: BP 119/49
[2018-10-18 16:00] VITALS: BP 120/49
[2018-10-18 20:00] VITALS: BP 120/59
[2018-10-19] VITALS: BP 127/64
[2018-10-19 06:21] LABS: CHOLESTEROL 180 mg/dL (<200); HDL CHOLESTEROL 35 mg/dl (40-60); LDL CHOLESTEROL 99 mg/dL (9-159); TRIGLYCERIDES 232 mg/dl (<150); VLDL CHOLESTEROL 46 mg/dL (6-40)
[2018-10-19 07:52] VITALS: BP 118/68
[2018-10-19 15:57] VITALS: BP 142/61
[2018-10-19 16:05] LABS: BUN 14 mg/dl (7-24); CHLORIDE 108 mmol/L (98-107); CREATININE 0.79 mg/dL (0.55-1.02); POTASSIUM 3.9 mmol/L (3.5-5.1); SODIUM 140 mmol/L (136-145)
[2018-10-19 16:09] LABS: BASO # 0.1 10*3/uL (0.0-0.1); BASO % 0.6 % (0.0-1.0); EOS # 0.2 10*3/uL (0.0-0.4); EOS % 1.4 % (1.0-4.0); HEMOGLOBIN 10.7 g/dl (12.0-16.0); LYMPH # 4.4 10*3/uL (1.3-4.4); LYMPH % 36.3 % (27.0-41.0); MEAN CELL VOLUME 88.7 fl (81.0-99.0); MEAN CORPUSCULAR HGB 28.8 pg (27.0-31.0); MEAN CORPUSCULAR HGB CONC 32.4 g/dl (33.0-37.0); MEAN PLATELET VOLUME 8.9 fl (9.6-12.3); MONO # 0.6 10*3/uL (0.1-1.0); MONO % 4.8 % (3.0-9.0); NEUT # 6.8 10*3/uL (2.3-7.9); NEUT % 56.6 % (47.0-73.0); PLATELET COUNT AUTOMATED 388 10*3/uL (130-400); RED BLOOD COUNT 3.72 10*6/uL (4.10-5.10); RED CELL DISTRI WIDTH 15.8 % (0-14.5)
[2018-10-19 20:00] VITALS: BP 99/48
[2018-10-20] VITALS: BP 102/61
[2018-10-20 08:00] VITALS: BP 110/68
[2018-10-31] MEDS ORDERED: CYMBALTA30 MG PO (22:35)
[2018-10-31] MEDS ORDERED: CYMBALTA60 MG PO (22:36)
[2018-11-01] MEDS ORDERED: ASPIRIN ADULT L81 M1 PO (00:23)
[2018-11-01] MEDS ORDERED: TOPROL XL25 MG PO (00:24)
[2018-11-01] MEDS ORDERED: METFORMIN ER500 MG PO (00:24)
[2018-11-01] MEDS ORDERED: PREDNISONE10 M1 PO (00:25)
[2018-11-01] MEDS ORDERED: RANEXA500 M1 PO (00:26)
[2018-11-02] MEDS ORDERED: IMDUR SA30 MG PO (18:56)
[2018-11-02] MEDS ORDERED: RANEXA500 M1 PO (18:56)
== END 2018-10-20 08:40 | disposition other institution (70) | DRG 303 ==
LOC: 4E 14:23
PROVIDERS: Internal Medicine Cardiovascular Disease; ADMIT Internal Medicine
PROC: 4A02XM4 Measurement of Cardiac Total Activity, External Approach (ICD-10-PCS; principal; 2018-10-19)
PROC: 3E073KZ Introduction of Other Diagnostic Substance into Coronary Artery, Percutaneous Approach (ICD-10-PCS; 2018-10-19)
DX: I25.10 Atherosclerotic heart disease of native coronary artery without angina pectoris (principal); F31.31 Bipolar disorder, current episode depressed, mild; E11.43 Type 2 diabetes mellitus with diabetic autonomic (poly)neuropathy; K31.84 Gastroparesis; J45.909 Unspecified asthma, uncomplicated; E66.9 Obesity, unspecified; E03.9 Hypothyroidism, unspecified; F17.200 Nicotine dependence, unspecified, uncomplicated; J43.2 Centrilobular emphysema; E78.2 Mixed hyperlipidemia; F41.1 Generalized anxiety disorder; E55.9 Vitamin D deficiency, unspecified; Z71.6 Tobacco abuse counseling; Z82.49 Family history of ischemic heart disease and other diseases of the circulatory system; Z68.34 Body mass index [BMI] 34.0-34.9, adult

== ENCOUNTER 2019-01-22 13:37 | Inpatient (IN) | payer OTHER ==
[~2019-01-22] VITALS: Ht 162.5 cm; Wt 86.8 kg
--- NOTE | ~2019-01-22 | WRIGHTHP ---
[place], [place] PATIENT HISTORY AND PHYSICAL EXAM NAME: NELLI CANTRELL [facility] #: [id number] UNIT #: [id number] ROOM: 505 DOCTOR: ROSANNA GÓEMZ MD BIRTHDATE: [birth year] DOS: HISTORY OF PRESENT ILLNESS: This patient is not known to me. She comes in with complaints of 4-5 days duration of not feeling good, occasional chest discomfort, shortness of breath and dry mouth. She denies having any chest pains, palpitations right now. Does not have any fever or chills. The patient said that she thought she had a flu-like syndrome and that is the reason why she came to the ER. She was recently seen by her PCP and was placed on Bumex for swelling in her hand. PAST MEDICAL HISTORY: Significant for: 1. Coronary artery disease with recent cardiac catheterization at [place]. 2. Bipolar disorder. 3. Benign hypertension. SOCIAL HISTORY: Smoker of about half to 1 pack of cigarettes. Denies using any alcohol. She lives at home with her boyfriend. PHYSICAL EXAMINATION: GENERAL: She is awake and alert and oriented, in no distress. VITAL SIGNS: Graphic trend shows a pressure of 110/70, pulse of 76, respirations 14, afebrile. LUNGS: Diminished breath sounds. No wheezes, rales, rhonchi heard. HEART: Regular. ABDOMEN: Obese, soft, nontender. EXTREMITIES: Without any edema. ASSESSMENT AND PLAN: 1. The patient who presents with possibility of a viral syndrome. A flu titer will be ordered. She had slight elevation in the white cell count, but no evidence of any active infection can be seen on x-rays or other studies. 2. Chest pain. The patient has known history of coronary artery disease. Consultation with Dr. Herrera has been obtained. Troponin q. 3 x 3 is ordered. Home medications include Ranexa, which will be continued. 3. Bipolar disorder, on Geodon, possibly causing her dry mouth, but she also has some elevated BUN and creatinine. 4. Acute kidney injury, possibly from Bumex, will be discontinued. At present, there is no evidence of any peripheral volume overload. IV fluids will be ordered. Nephrotoxic medications to be discontinued. [place], [place] PATIENT HISTORY AND PHYSICAL EXAM [id number] #: [id number] ROOM: [facility] DOCTOR: ROSANNA GÓMEZ MD BIRTHDATE: [birth year] ROSANNA GÓMEZ MD CM:HISPHYS:PATIENT HISTORY AND PHYSICAL EXAMINATION [id number] ROSANNA GÓMEZ MD 01/23/19 1428 interface
--- NOTE | ~2019-01-22 | CON ---
[place], [place] REPORT OF CONSULTATION NAME[id number] UNIT #: [id number] ROOM: 505 DOCTOR: NEELAM NIX MD BIRTHDATE: [birth year] DOS: 01/23/2019 HISTORY OF PRESENT ILLNESS: This is a 54-year-old -F[place]ish woman with a history of morbid obesity, long-standing type 2 diabetes mellitus, hyperlipidemia, essential hypertension and hypothyroidism, who had a diagnostic heart catheterization done at [facility] in [place] and she had a totally occluded left anterior descending artery with the collaterals from the right coronary artery. She though did not require any coronary intervention. She also has COPD and remains a smoker. There is family history of coronary artery disease. She was admitted to the hospital yesterday through the Emergency Department. She had had nausea and vomiting for about 4 days and was mostly in the bed. She did not eat or drink much, but she did not have any fever, chills, abdominal pain or diarrhea. Yesterday, she also had a retrosternal chest discomfort/pain that lasted for many hours. She had not had any palpitations, sweating, did not pass out. She was standing after brief walking when she felt dizzy and actually passed out for about 30 seconds. When she came around, she was nauseated and was sweating, but did not have any palpitations. Chest pain started later. She has not had any PND, orthopnea, or swelling of the lower extremities. HOME MEDICATIONS: Include Pulmicort, ipratropium, albuterol aerosol treatments, aspirin, atorvastatin, bumetanide 1 mg daily, isosorbide mononitrate 30 daily, levothyroxine 125 mcg daily, benztropine 1 mg at night, metformin 500 b.i.d., metoprolol succinate 25 mg daily, Protonix 40 daily, ranolazine 1 gram b.i.d. and Geodon 180 mg at night. PHYSICAL EXAMINATION: GENERAL: This is a patient who is very obese. She is alert, oriented. Her complexion is fine. She is not in any distress. There is no thyromegaly or finger clubbing. VITAL SIGNS: Her pulse is 72, regular; blood pressure 103/47. NECK: JVP is normal, no bruit in the neck is present. CARDIOVASCULAR: There is no cardiomegaly, no murmurs are audible. EXTREMITIES: She has excellent pedal pulses and there is no edema in the lower extremities. RESPIRATORY: Breath sounds are modestly diminished with some fine rhonchi and some crackles. DIAGNOSTIC/LABORATORY DATA: Her ECG showed normal sinus rhythm with complete right bundle branch block, which is chronic. Troponin I levels were normal. Hemoglobin 11.5 g/dL. BUN 17, down from 18. Creatinine 1.42, down from 1.60. IMPRESSION: 1. Loss of consciousness/syncope was most likely due to dehydration from 3-4 days of nausea and not taking fluids in. 2. Chest pain, I think, is probably esophageal spasm or esophagitis from vomiting and I do not believe she has ruled out for an acute myocardial [place], [place] REPORT OF CONSULTATION NAME: NELLI CANTRELL UNIT #: [id number] ROOM: [facility] DOCTOR: NEELAM NIX MD BIRTHDATE: [birth year] infarction. She does not need any further workup. 3. Acute renal insufficiency is most likely from dehydration. She is on IV fluids now, and the renal function is improving. She does not need any further cardiac workup and once her nausea and vomiting settle down and if she is able to take some fluids, she probably will be able to go home. I thank you for this consult. NEELAM NIX MD CM:CONSTR:REPORT OF CONSULTATION 5 02/23/1914 interface
--- NOTE | ~2019-01-22 | EKG ---
[place], [place] ELECTROCARDIOGRAM REPORT NAME: NELLI CANTRELL UNIT #: [id number] ROOM: 505 DOCTOR: LAISHA DRAFT REPORT BIRTHDATE: [birth year] [facility] Test Date: 2019-01-22 Test Time: 17:09:10 Pat Name: NELLI CANTRELL Department: Room: 505 Gender: F Oil Heaterman: Faviola Reed : 1965 Requested By: CAROL LERNER Order Number: [id number] Reading MD: Azucena Iraheta Measurements Intervals [place] Rate: 59 P: 54 VA: 169 QRS: 50 QRSD: 162 T: 8 QT: 503 QTc: 499 Interpretive Statements Sinus rhythm Right bundle branch block Compared to ECG 11/01/2018 08:40:32 Right bundle-branch block now present Right ventricular hypertrophy no longer present Electronically Signed On 01-24-2019 11:53:50 PDT by Azucena Iraheta CM:EKGRPT:ELECTROCARDIOGRAM REPORT [id number] CAROL INTERIANO DRAFT REPORT CAROL LERNER M.D.
--- NOTE | ~2019-01-22 | DS ---
[place], [place] DISCHARGE SUMMARY [id number] UN[facility] #: [id number] ROOM: 505 DOCTOR: ROSANNA GÓMEZ MD BIRTHDATE: [birth year] DOS: 01/24/2019 DIAGNOSES: 1. Urinary tract infection. Urine culture not completed yet. 2. Viral syndrome with negative flu titer. 3. Elevated white cell count, which is resolved, possibly from underlying urinary tract infection. 4. Chest pain with negative troponins. 5. Coronary artery disease with recent cardiac catheterization with 90% occlusion of LAD, but with significant collaterals. 6. Benign hypertension. 7. Bipolar disorder. 8. Acute kidney injury. HOSPITAL COURSE: The patient is not known to me, comes in with 4 days of complains of dry mouth, shortness of breath, chest discomfort, not feeling good. She thought she had flu-like illness, came into the ER. In the ER, she complained of chest pain, so she was admitted with diagnosis of precordial pain. After admission, she had a Cardiology consultation with Dr. Herrera. Three sets of troponins were done. They had come back negative. Urine was reflexed. IV fluids were ordered. With that, the white cell count is normalized and also the acute kidney injury seems to be resolving. Urinalysis showed leukocyte esterase and protein, most likely indicating an underlying UTI, which could be responsible for her symptoms. Urine culture is not complete yet, but the patient is being placed on Levaquin, IV fluids have been discontinued and the patient is stable enough to go home. She was recently placed on Bumex, which has been discontinued because of the acute kidney injury. There is no evidence of CHF or increased peripheral volume overload at this present time to add any diuretics. DISCHARGE MEDICATIONS: Cipro 500 mg daily for 7 days, benztropine 1 mg daily, levothyroxine 125 mcg daily, Xanax 1 mg t.i.d. p.r.n., Geodon 180 bedtime, atorvastatin 40 daily, Protonix 40 daily, vitamin D 2000 units daily, breathing treatments of DuoNeb q. 4, folic acid 1 mg daily, Pulmicort 0.5 b.i.d., duloxetine 30 daily, aspirin 81 daily, metformin 500 b.i.d., metoprolol 25 daily, Ranexa 1000 q. 12 and isosorbide 30 daily. [place], [place] DISCHARGE SUMMARY [facility]: [facility] [id number] #: [id number] ROOM: [facility] DOCTOR: ROSANNA GÓMEZ MD BIRTHDATE: [birth year] ROSANNA GÓMEZ MD CM:DISCHARG [phone] ROSANNA GÓMEZ MD 01/24/19 1508 interface
--- NOTE | ~2019-01-22 | EKG ---
[place], [place] ELECTROCARDIOGRAM REPORT NAME: NELLI CANTRELL UNIT #: [id number] ROOM: 505 DOCTOR: LAISHA DRAFT REPORT BIRTHDATE: [birth year] [facility] Test Date: 2019-01-22 Test Time: 13:50:41 Pat Name: NELLI CANTRELL Department: Room: 505 Gender: F Equipment Mechanic Specialist: : 1965 Requested By: CAROL LERNER Order Number: [id number] Reading MD: Azucena Iraheta Measurements Intervals [place] Rate: 67 P: 42 UT: 157 QRS: 57 QRSD: 174 T: 9 QT: 505 QTc: 534 Interpretive Statements Sinus rhythm Atrial premature complex Right bundle branch block Compared to ECG 11/01/2018 08:40:32 Atrial premature complex(es) now present Right bundle-branch block now present Right ventricular hypertrophy no longer present Electronically Signed On 01-24-2019 11:53:34 PDT by Azucena Iraheta CM:EKGRPT:ELECTROCARDIOGRAM REPORT [id number] 1153 CAROL INTERIANO DRAFT REPORT CAROL LERNER M.D.
--- NOTE | ~2019-01-22 | EKG ---
[place], [place] ELECTROCARDIOGRAM REPORT NAME: NELLI CANTRELL UNIT #: [id number] ROOM: 505 DOCTOR: LAISHA DRAFT REPORT BIRTHDATE: [address] [facility] Test Date: 2019-01-22 Test Time: 20:04:59 Pat Name: NELLI CANTRELL Department: Room: 505 Gender: F Adjunct Faculty Instructor: : 1965 Requested By: CAROL LERNER Order Number: [id number] Reading MD: Azucena Iraheta Measurements Intervals [place] Rate: 63 P: 44 CA: 170 QRS: 29 QRSD: 170 T: 2 QT: 504 QTc: 517 Interpretive Statements Sinus rhythm Right bundle branch block Compared to ECG 11/01/2018 08:40:32 Right bundle-branch block now present Right ventricular hypertrophy no longer present Electronically Signed On 01-24-2019 11:54:20 PDT by Azucena Iraheta CM:EKGRPT:ELECTROCARDIOGRAM REPORT 03 1154 CAROL INTERIANO DRAFT REPORT CAROL LERNER M.D.
--- NOTE | ~2019-01-22 | PR ---
[place], [place] PROGRESS NOTE NAME[id number] UNIT #: [id number] ROOM: 505 DOCTOR: ROSANNA GÓMEZ MD BIRTHDATE: [birth year] DOS: 01/24/2019 SUBJECTIVE: The patient is resting, does not have any complaints. Appreciate Dr. Herrera's input. OBJECTIVE: VITAL SIGNS: Blood pressure is 99/48, pulse is 61, respirations 20, and temperature 97.6. LUNGS: Clear. HEART: Regular. ABDOMEN: Obese. EXTREMITIES: Without any edema. ASSESSMENT AND PLAN: 1. Viral syndrome with a flu-like illness with an elevated white cell count. This has normalized. Flu titer was negative. 2. Possible urinary tract infection. Urine culture is reflexed, not completed yet. 3. Chest pains were ruled out for myocardial infarction. Cardiology consultation was obtained. Dr. Herrera does not feel this warrants any further workup. 4. Acute kidney injury, possibly from diuretics, which has been discontinued given IV fluids. Kidney functions have improved. The patient is stable, can be discharged to home today. Follow up as an outpatient. ROSANNA GÓMEZ MD CM:PNTRANS [phone] ROSANNA GÓMEZ MD 01/24/19 0606 interface
[~2019-01-22 13:37] MED LIST changes: +ASPIRIN ADULT L81 M1 PO; +CYMBALTA30 MG PO; +CYMBALTA60 MG PO; +DULOXETINE HCL30 MG PO; +IMDUR SA30 MG PO; +PREDNISONE10 M1 PO; +RANEXA500 M1 PO; +TOPROL XL25 MG PO
[2019-01-22 13:39] VITALS: BP 144/48
[2019-01-22 14:09] LABS: BASO # 0.1 10*3/uL (0.0-0.1); BASO % 0.4 % (0.0-1.0); EOS # 0.1 10*3/uL (0.0-0.4); EOS % 0.8 % (1.0-4.0); HEMATOCRIT 37.1 % (37.0-47.0); HEMOGLOBIN 12.4 g/dl (12.0-16.0); LYMPH # 3.7 10*3/uL (1.3-4.4); LYMPH % 28.3 % (27.0-41.0); MEAN CELL VOLUME 91.4 fl (81.0-99.0); MEAN CORPUSCULAR HGB 30.5 pg (27.0-31.0); MEAN CORPUSCULAR HGB CONC 33.4 g/dl (33.0-37.0); MONO # 0.8 10*3/uL (0.1-1.0); MONO % 5.9 % (3.0-9.0); NEUT # 8.4 10*3/uL (2.3-7.9); PLATELET COUNT AUTOMATED 448 10*3/uL (130-400); RED BLOOD COUNT 4.06 10*6/uL (4.10-5.10); RED CELL DISTRI WIDTH 14.4 % (0-14.5); WHITE BLOOD COUNT 13.1 10*3/uL (4.8-10.8)
[2019-01-22 14:25] LABS: ACT PARTIAL THROMBO TIME 25.9 SECONDS (20.0-32.1)
[2019-01-22 14:26] LABS: ALBUMIN 3.7 gm/dl (3.1-4.5); ALKALINE PHOSPHATASE 90 U/L (45-117); BUN 18 mg/dl (7-24); CHLORIDE 102 mmol/L (98-107); POTASSIUM 3.8 mmol/L (3.5-5.1); SGOT/AST 40 IU/L (3-35); SGPT/ALT 29 U/L (12-78); SODIUM 136 mmol/L (136-145); TOTAL PROTEIN 7.7 gm/dL (6.4-8.2)
[2019-01-22 14:31] LABS: TROPONIN I < 0.015 ng/ml (<0.045)
[2019-01-22 16:30] VITALS: BP 132/68
--- NOTE | 2019-01-22 16:30 | NUR ---
A 54, admitted to 5E, under the services of ROSANNA Palmer MD with a diagnosis of CHEST PAIN. Chief complaint is NAUSEA,VOMITING AND SYNCOPE. Patient arrived via bed from ER. Monitor applied. Initial assessment completed. Vital signs taken and recorded. ROSANNA PALMER MD notified of admission to the unit. Orders received. See assessment for past medical history, medications and allergies. Patient and/or family oriented to unit. [facility] visitation policy reviewed. Clothing/patient valuable form completed. STEPHANIE TUCKER
[2019-01-22 16:40] VITALS: BP 132/68
[2019-01-22] MEDS ORDERED: BUMETANIDE1 MG PO (17:03)
--- NOTE | 2019-01-22 18:27 | NUR ---
DR NIX NOTIFIED OF NEW CONSULT FOR CHEST PAIN.
[2019-01-22 19:26] LABS: BILIRUBIN NEGATIVE (NEGATIVE); BLOOD NEGATIVE (NEGATIVE); CLARITY CLOUDY (CLEAR); COLOR YELLOW (YELLOW); GLUCOSE NEGATIVE (NEGATIVE); KETONE NEGATIVE (NEGATIVE); LEUKO ESTERASE 1+ (NEGATIVE); NITRITE NEGATIVE (NEGATIVE); UROBILINOGEN 0.2 E.U./dl (0.2-1.0)
[2019-01-22 19:35] LABS: BACTERIA 4+; EPITHELIAL CELLS 16-20
[2019-01-22 19:37] LABS: MUCOUS 1+; WBC 51-100 wbc/hpf (0-5)
--- NOTE | 2019-01-22 19:53 | NUR ---
MEDICATED WITH ZOFRAN FOR C/O NAUSEA.
[2019-01-22 20:00] VITALS: BP 121/55
--- NOTE | 2019-01-22 22:30 | NUR ---
STATES ZOFRAN SOMEWHAT EFFECTIVE. TOOK PATIENT SOME SILVANA JAKE AT THIS TIME. IV FLUIDS CONTINUE TO INFUSE WITHOUT DIFFICULTY; SITE ASYMPTOMATIC. NO DISTRESS NOTED; PT. VOICES NO OTHER C/O. CALL LIGHT WITHIN REACH.
[2019-01-23] VITALS: BP 103/47
--- NOTE | 2019-01-23 | NUR ---
RESTING IN BED WITH EYES CLOSED. IV FLUIDS CONTINUE TO INFUSE WITHOUT DIFFICULTY. CALL LIGHT WITHIN REACH.
--- NOTE | 2019-01-23 06:00 | NUR ---
TOOK PO MEDICATIONS WITHOUT DIFFICULTY. URINE VERY FOUL SMELLING; ENCOURAGED PT. TO DRINK PLENTY OF WATER; VERBALIZED UNDERSTANDING. CALL LIGHT WITHIN REACH.
[2019-01-23 06:53] LABS: BASO # 0.1 10*3/uL (0.0-0.1); BASO % 0.5 % (0.0-1.0); EOS # 0.1 10*3/uL (0.0-0.4); EOS % 1.3 % (1.0-4.0); HEMATOCRIT 34.9 % (37.0-47.0); HEMOGLOBIN 11.5 g/dl (12.0-16.0); LYMPH # 3.1 10*3/uL (1.3-4.4); LYMPH % 30.5 % (27.0-41.0); MEAN CELL VOLUME 91.8 fl (81.0-99.0); MEAN CORPUSCULAR HGB 30.3 pg (27.0-31.0); MONO # 0.6 10*3/uL (0.1-1.0); MONO % 6.3 % (3.0-9.0); NEUT # 6.1 10*3/uL (2.3-7.9); NEUT % 60.8 % (47.0-73.0); PLATELET COUNT AUTOMATED 350 10*3/uL (130-400); RED CELL DISTRI WIDTH 14.6 % (0-14.5)
[2019-01-23 07:04] LABS: CREATININE 1.42 mg/dL (0.55-1.02); POTASSIUM 3.9 mmol/L (3.5-5.1)
--- NOTE | 2019-01-23 07:51 | NUR ---
PT RESTING IN BED. NO DISTRESS NOTED. SEE SHIFT ASSESSMENT. WILL MONITOR
--- NOTE | 2019-01-23 08:10 | NUR ---
DR GÓMEZ AND DR NIX HERE TO SEE PT
[2019-01-23 12:00] VITALS: BP 108/88
--- NOTE | 2019-01-23 13:45 | NUR ---
PT REQUESTED AND GIVEN TYLENOL FOR HEADACHE. WILL MONITOR
[2019-01-23 16:00] VITALS: BP 106/59
[2019-01-23 20:00] VITALS: BP 132/73
--- NOTE | 2019-01-23 20:00 | NUR ---
AAOX3 RESTING IN BED. IV FLUIDS INFUSING ORDERED. PT. VOICES NO C/O AT THIS TIME. CALL LIGHT WITHIN REACH.
--- NOTE | 2019-01-23 22:00 | NUR ---
TOOK PO MEDICATIONS WITHOUT DIFFICULTY. CALL LIGHT WITHIN REACH.
[2019-01-24] VITALS: BP 99/48
[2019-01-24] MEDS ORDERED: CIPRO500 MG PO (03:39)
--- NOTE | 2019-01-24 06:00 | NUR ---
BLOOD SUGAR 92.
--- NOTE | 2019-01-24 06:42 | NUR ---
CALLED DR. GÓMEZ PERTAINING TO PT'S PRELIMINARY URINE CULTURE.
--- NOTE | 2019-01-24 08:28 | NUR ---
PT RESTING IN BED, NO DISTRESS NOTED. WILL MONITOR
--- NOTE | 2019-01-24 10:29 | NUR ---
Discharge instructions reviewed with patient/family. Patient receptive and verbalizes understanding. Follow-up care arranged. Written instructions given to patient/family. JESSICA JOHNSON
== END 2019-01-24 10:29 | disposition home or self-care (01) | DRG 690 ==
LOC: ED 13:37 → EDHOLD 15:46 → 5E 15:46
PROVIDERS: Emergency Medicine; ADMIT Internal Medicine
DX: N39.0 Urinary tract infection, site not specified (principal); N17.9 Acute kidney failure, unspecified; I25.10 Atherosclerotic heart disease of native coronary artery without angina pectoris; I10 Essential (primary) hypertension; F31.9 Bipolar disorder, unspecified; R55 Syncope and collapse; B34.9 Viral infection, unspecified; J45.909 Unspecified asthma, uncomplicated; R07.2 Precordial pain; E11.9 Type 2 diabetes mellitus without complications; K21.9 Gastro-esophageal reflux disease without esophagitis; E03.9 Hypothyroidism, unspecified; E78.2 Mixed hyperlipidemia; F17.210 Nicotine dependence, cigarettes, uncomplicated; E66.01 Morbid (severe) obesity due to excess calories; Z80.8 Family history of malignant neoplasm of other organs or systems; Z83.3 Family history of diabetes mellitus; Z88.1 Allergy status to other antibiotic agents; Z88.8 Allergy status to other drugs, medicaments and biological substances; Z82.49 Family history of ischemic heart disease and other diseases of the circulatory system; Z82.3 Family history of stroke; Z68.32 Body mass index [BMI] 32.0-32.9, adult

== ENCOUNTER 2019-01-29 20:04 | Emergency (ER) | payer OTHER ==
[~2019-01-29] VITALS: Ht 162.5 cm; Wt 77.1 kg
--- NOTE | ~2019-01-29 | EKG ---
[place], [place] ELECTROCARDIOGRAM REPORT NAME: NELLI CANTRELL UNIT #: [id number] ROOM: DOCTOR: EPIPHANY DRAFT REPORT BIRTHDATE: [birth year] [facility] Test Date: 2019-01-29 Test Time: 20:35:59 Pat Name: NELLI CANTRELL Department: ED Room: Gender: F Phlebotomy Technician: Coral Galeano : 1965 Requested By: IVONE CISSE PA-C Order Number: [id number] Reading MD: Vj Herrera MD Measurements Intervals [place] Rate: 64 P: 48 WI: 178 QRS: 50 QRSD: 159 T: 12 QT: 474 QTc: 489 Interpretive Statements Sinus rhythm Right bundle branch block Compared to ECG 01/22/2019 20:04:59 No significant changes Electronically Signed On 02-10-2019 3:34:24 PDT by Vj Herrera MD CM:EKGRPT:ELECTROCARDIOGRAM REPORT 34 IVONE CISSE PA-C EPIPHRACHELE DRAFT REPORT IVONE CISSE PA-C
[~2019-01-29 20:04] MED LIST changes: +BUMETANIDE1 MG PO; +CIPRO500 MG PO
[2019-01-29 20:52] LABS: BASO # 0.1 10*3/uL (0.0-0.1); BASO % 0.6 % (0.0-1.0); EOS # 0.2 10*3/uL (0.0-0.4); EOS % 1.6 % (1.0-4.0); HEMATOCRIT 35.8 % (37.0-47.0); HEMOGLOBIN 11.6 g/dl (12.0-16.0); LYMPH # 4.6 10*3/uL (1.3-4.4); MEAN CELL VOLUME 93.7 fl (81.0-99.0); MEAN CORPUSCULAR HGB 30.4 pg (27.0-31.0); MEAN CORPUSCULAR HGB CONC 32.4 g/dl (33.0-37.0); MEAN PLATELET VOLUME 9.1 fl (9.6-12.3); MONO # 0.8 10*3/uL (0.1-1.0); MONO % 7.2 % (3.0-9.0); NEUT # 5.3 10*3/uL (2.3-7.9); PLATELET COUNT AUTOMATED 397 10*3/uL (130-400); RED BLOOD COUNT 3.82 10*6/uL (4.10-5.10); RED CELL DISTRI WIDTH 14.4 % (0-14.5)
[2019-01-29 21:02] LABS: ACT PARTIAL THROMBO TIME 26.5 SECONDS (20.0-32.1); INTERNATIONAL NORM RATIO 0.9 (2.0-3.5)
[2019-01-29 21:09] LABS: ALBUMIN 3.2 gm/dl (3.1-4.5); ALKALINE PHOSPHATASE 80 U/L (45-117); BUN 16 mg/dl (7-24); CHLORIDE 108 mmol/L (98-107); CREATININE 1.18 mg/dL (0.55-1.02); POTASSIUM 4.2 mmol/L (3.5-5.1); SGOT/AST 7 IU/L (3-35); SGPT/ALT 29 U/L (12-78); SODIUM 139 mmol/L (136-145)
[2019-01-29 21:21] LABS: TROPONIN I < 0.015 ng/ml (<0.045)
== END 2019-01-29 23:16 | disposition home or self-care (01) ==
LOC: ED 20:04
PROVIDERS: Physician Assistant
DX: S09.90XA Unspecified injury of head, initial encounter (principal); R55 Syncope and collapse; E86.0 Dehydration; I25.10 Atherosclerotic heart disease of native coronary artery without angina pectoris; E78.00 Pure hypercholesterolemia, unspecified; E11.9 Type 2 diabetes mellitus without complications; F17.200 Nicotine dependence, unspecified, uncomplicated; Z79.899 Other long term (current) drug therapy; Z79.82 Long term (current) use of aspirin; Z88.1 Allergy status to other antibiotic agents; Z88.8 Allergy status to other drugs, medicaments and biological substances; W18.39XA Other fall on same level, initial encounter; Y93.89 Activity, other specified; Y92.89 Other specified places as the place of occurrence of the external cause; Y99.8 Other external cause status

== ENCOUNTER 2019-02-24 16:14 | Inpatient (IN) | payer OTHER ==
[~2019-02-24] VITALS: Ht 162.6 cm; Wt 89.4 kg
--- NOTE | ~2019-02-24 | PR ---
[place], [place] PROGRESS NOTE NAME: NELLI CANTRELL UNIT #: [id number] ROOM: 407 DOCTOR: JEANNETTE OAKES MD BIRTHDATE: [birth year] DOS: 02/26/2019 PULMONARY PROGRESS NOTE SUBJECTIVE: The patient was noted about the same patient of yesterday with severe cough and wheezing. The patient reported shortness of breath was not noted at rest, but occurs with exertion. Denies chest pain. Denies symptoms of fever or chills. Denies symptoms of hemoptysis, nausea, vomiting, diarrhea, abdominal pain, hematemesis, or melena. Continued intravenous steroids, bronchodilators, oxygen and other treatment for the patient as well. The review of systems otherwise completed as normal. OBJECTIVE: VITAL SIGNS: For the patient this morning as a normal temperature, respiratory rate of 17, heart rate 75, blood pressure 110/56. Pulse oxygen saturation recorded on room air as 93% saturation at rest. HEENT: Head was atraumatic. EYES: No icterus. NECK: Supple. CARDIOVASCULAR: S1, S2 is audible. LUNGS: The patient with persistent decreased breath sounds in the lungs bilaterally with expiratory wheezing without any crackles. ABDOMEN: Soft, nontender, bowel sounds present. EXTREMITIES: Noted with chronic obesity. No edema. MUSCULOSKELETAL: Without any deformities. CENTRAL NERVOUS SYSTEM: Intact. LABORATORY DATA: CBC this morning: WBC count elevated to 20.7, hemoglobin 10.7, and platelet count normal. BMP this morning, BUN 22, creatinine normal, and glucose 143. IMPRESSION: 1. The patient with leukocytosis with acute exacerbation of chronic obstructive pulmonary disease, acute tracheobronchitis. 2. Chronic obesity as well. 3. History of nicotine dependence. 4. Uncontrolled hyperglycemia as well secondary to corticosteroids administration. PLAN OF MANAGEMENT: Proceed with the bronchoscopy as planned. Bronchodilators will be done to be continued. Oxygen supplementation, continuation of the other therapy, plan of management. Leukocytosis noted, most likely related to the corticosteroids. Any modification in treatment if necessary will be ordered after the bronchoscopy. [place], [place] PROGRESS NOTE NAME: NELLI CANTRELL UNIT #: [id number] ROOM: 407 DOCTOR: JEANNETTE OAKES MD BIRTHDATE: [birth year] JEANNETTE GRAY MD CM:MARCO [id number] JEANNETTE DAMON MD 03/08/19 1007 interface
--- NOTE | ~2019-02-24 | EKG ---
[place], [place] ELECTROCARDIOGRAM REPORT NAME: NELLI CANTRELL UNIT #: [id number] ROOM: 407 DOCTOR: LAISHA DRAFT REPORT BIRTHDATE: [birth year] [facility] Test Date: 2019-02-25 Test Time: 12:18:45 Pat Name: NELLI CANTRELL Department: Room: [facility] Gender: F Crematory Operator: Faviola Reed : 1965 Requested By: JEANNETTE DAMON Order Number: [id number] Reading MD: Jeannette Chaves MD Measurements Intervals [place] Rate: 92 P: 42 CA: 187 QRS: 41 QRSD: 141 T: 10 QT: 401 QTc: 497 Interpretive Statements Sinus rhythm Right bundle branch block Baseline wander in lead(s) V1,V2,V3 Compared to ECG 01/29/2019 20:35:59 No significant changes Electronically Signed On 02-28-2019 14:02:39 PDT by Jeannette Chaves MD CM:EKGRPT:ELECTROCARDIOGRAM REPORT [id number] 1402 JEANNETTE DAMON MD EPIPHANY DRAFT REPORT JEANNETTE DAMON MD
--- NOTE | ~2019-02-24 | CON ---
[place], [place] REPORT OF CONSULTATION NAME: NELLI CANTRELL [facility] #: [id number] UNIT #: [id number] ROOM: 407 DOCTOR: JEANNETTE OAKES MD BIRTHDATE: [birth year] DOS: 02/25/2019 PULMONARY CONSULTATION EVALUATION AND MANAGEMENT CONSULTATION REQUESTED BY: Dr. Todd. REASON FOR CONSULTATION: For the assessment of ongoing acute respiratory complaints with exacerbation of chronic obstructive pulmonary disease. HISTORY OF PRESENT ILLNESS: A 54-year-old white female who has been known to me in the past. The patient was assessed in April 2018 for the management of acute exacerbation of chronic obstructive pulmonary disease and respiratory failure. The patient required therapeutic of bronchoscopy at that time for further medical management. She has been admitted to the hospital under the care of Dr. Todd yesterday for further care. She has been reported having symptoms of increased symptoms of shortness of breath, chest congestion and coughing ongoing for the past few days. The symptoms have been noted significantly worsened over the last few days. The patient admitted to the hospital for further care. The cough has been noted essentially severe and nonproductive mostly. There were symptoms of hemoptysis or chest pain noted secondary to cough in the anterior chest wall. The patient does have symptoms of shortness of breath, which occurs with exertion and not present at rest. The wheezing and chest tightness reported intermittently. REVIEW OF SYSTEMS: CONSTITUTIONAL: Fatigue and tiredness reported. No symptoms of fever or chills. EYES: Denies any burning, redness, or tenderness. EARS, NOSE, THROAT SYMPTOMS: Denies sore throat, hoarseness, otalgia, postnasal drainage or epistaxis. CARDIOVASCULAR: Denies angina pain, edema or pain of the lower extremities. GASTROINTESTINAL: Denies dysphagia, nausea, vomiting, diarrhea, abdominal pain, hematemesis, melena, or hematochezia. GENITOURINARY: No dysuria, suprapubic pain, hematuria. MUSCULOSKELETAL: No acute joint pain, redness, or tenderness. SKIN: No lesions or rashes were reported. CENTRAL NERVOUS SYSTEM: No dizziness, headache, diplopia or syncopal episode. Remaining systems were reviewed. They were noted all negative. PAST MEDICAL HISTORY: 1. COPD. 2. Bronchial asthma, severity unknown at this time. 3. Type 2 diabetes mellitus. 4. Coronary artery disease. 5. Bipolar disorder and general anxiety disorder. 6. Gastroesophageal reflux. 7. Intermittent headaches. 8. Vitamin D deficiency. 9. Chronic obesity. [place], [place] REPORT OF CONSULTATION [facility] [id number] UNIT #: [id number] ROOM: 407 DOCTOR: JEANNTETE OAKES MD BIRTHDATE: [birth year] SOCIAL HISTORY: The patient stated she is . She has 6 children, lives at home. Tobacco use was noted since teens for this, a pack of cigarettes per day and currently smoking 10 cigarettes a day. PAST SURGICAL HISTORY: 1. Noted as fiberoptic bronchoscopy. 2. Tonsilectomy. FAMILY HISTORY: Reported for CVA, cancer, hypertension and diabetes mellitus. CURRENT MEDICATIONS: Actively administered was noted as Cymbalta, nicotine placement patches, Imdur, metoprolol succinate, aspirin, levothyroxine, Protonix, Ranexa, Solu-Medrol 40 mg q.8 hours, Geodon, Cogentin, Lipitor, metformin, DuoNeb, Pulmicort Respules, oral Cipro levofloxacin and Xanax. DRUG ALLERGIES: The patient reported 1. COMPAZINE. 2. KEFLEX. 3. DOXYCYCLINE, causing rash. 4. ZITHROMAX, causing hives and shortness of breath. 5. GENTAMICIN, causing vomiting. 6. LEVAQUIN, reaction is unknown. PHYSICAL EXAMINATION: GENERAL: A 54-year-old female patient is currently resting comfortably on the bed this morning of assessment. Height of 5 feet 4 inches, weight of 197 pounds, BMI 33.8. VITAL SIGNS: Normal temperature, respiratory rate 18-20, heart rate 96-71, blood pressure 160/48 to 140/57. Pulse oxygen saturation on room air 96% saturation. HEENT: Chronic obesity. Head was atraumatic. Eye nonicterus. Decreased posterior pharyngeal space, high tongue base crowding of soft tissue structures. CARDIOVASCULAR: S1, S2 is audible. LUNGS: Noted. Severe expiratory wheezing noted. Decreased breath sounds. There were no crackles heard. ABDOMEN: Soft, obese, nontender, bowel sounds present. EXTREMITIES: The patient was noted with chronic obesity finding. No edema, clubbing, or cyanosis. MUSCULOSKELETAL: Noted without any acute deformities. VISIBLE SKIN: No lesions or rashes. CENTRAL NERVOUS SYSTEM: Cranial nerves 2-12 intact. No focal deficit. LABORATORY DATA: BMP this morning, glucose 165, BUN 14, creatinine 1.10. Remaining electrolytes normal. CBC on 02/25/2019, WBC count normal, platelet count normal, hemoglobin 11.1. The chest x-ray that was done this morning changes of hyperinflation without evidence of acute pulmonary infiltrates. IMPRESSION: 1. The patient is coming to the hospital with history of chronic bronchial [place], [place] REPORT OF CONSULTATION NAME: NELLI CANTRELL UNIT #: [id number] ROOM: 407 DOCTOR: ISAAC DAMON MD,[facility] BIRTHDATE: [birth year] asthma and chronic obstructive pulmonary disease noted acute exacerbation of chronic obstructive pulmonary disease at the present time with acute bronchitis, could be viral for this patient, no bacteria at this time. Unknown possibility of viral infection to be considered or allergen exposure resulting in acute exacerbation of chronic obstructive pulmonary disease and bronchial asthma. 2. History of chronic nicotine dependence. 3. History of chronic moderate obesity. 4. Acute exacerbation of obstructive sleep apnea disorder. 5. Multiple comorbid condition at younger age including severe coronary artery disease. 6. Essential hypertension. 7. Type 2 diabetes mellitus and multiple other medical problems as noted. PLAN OF MANAGEMENT: Since the patient has been noted ALLERGY TO MULTIPLE CLASSES of antibiotics. The bronchoscopy done to assess the airway showed mucus impaction of major airways and also get accurate culture to determine any need of antibiotic as necessary with changes to be made accordingly. Continuation of current dose of corticosteroids and bronchodilators every 4 hours. Collect the sputum for Gram stain and culture. The patient is able to expectorate sputum, certainly patient has been noted with no sputum expectoration at the present time, culture could not be sent. There was no evidence of pneumonia. Risk and benefits of bronchoscopy were discussed with the patient. The patient is agreeable for the procedure. Additional treatment changes recommendation will be made based on progression of the illness. N.p.o. past midnight status was ordered for the bronchoscopy done tomorrow morning. Deep venous thrombosis prophylaxis will be ordered. Nicotine replacement patches will be continued for the patient to overcome any nicotine withdrawal. Further changes in treatment will be recommended based on progression of the illness. Thanks for allowing me to participate in the care of this patient. JEANNETTE GRAY MD CM:CONSTR:REPORT OF CONSULTATION 1513 03/08/19 0952 interface
--- NOTE | ~2019-02-24 | PR ---
[place], [place] PROGRESS NOTE NAME: NELLI CANTRELL UNIT #: [id number] ROOM: 407 DOCTOR: JEANNETTE OAKES MD BIRTHDATE: [birth year] DOS: 02/27/2019 SUBJECTIVE: The patient has done remarkably better. The patient has a bronchoscopy resolution of coughing, wheezing improved significantly. Denies symptoms of chest pain, shortness of breath improved markedly as well. OBJECTIVE: GENERAL: The patient comfortably resting on the bed this morning without distress. VITAL SIGNS: Normal temperature, respiratory rate 18, heart rate 60, blood pressure 180/52. Pulse oxygen saturation on room air 96% saturation. HEENT: Chronic obesity. Head was atraumatic. Eyes nonicterus. NECK: Supple. CARDIOVASCULAR: S1, S2 audible. LUNGS: The patient was noted clear for wheezing completed today. ABDOMEN: Soft, nontender. Bowel sounds present. EXTREMITIES: Without any acute edema. MUSCULOSKELETAL: The patient noted without any acute deformities. LABORATORY DATA: Culture of the bronchial washing been noted normal estiven. Final cultures are pending. CBC noted WBC count 20,000. IMPRESSION: Significant improvement and resolution. Continue the patient's acute exacerbation of chronic obstructive pulmonary disease, leukocytosis related to corticosteroids. There is no evidence of any acute pneumonia or other ongoing significant infections. PLAN OF TREATMENT: No changes in the plan of management at this time. Continue the patient's current therapy as in progress. Usual care. Supportive plan of management and treatment plan of management. Discharge planning has already made for this patient. The case was ____Dr. Carolin Roberts for the patient discharge on oral medication and outpatient followup to be set up by post-discharge. Tobacco cessation and abstinence was encouraged. [place], [place] PROGRESS NOTE NAME: NELLI CANTRELL UNIT #: [id number] ROOM: 407 DOCTOR: JEANNETTE OAKES MD BIRTHDATE: [birth year] JEANNETTE GRAY MD CM:PNTRANS [id number] JEANNETTE DAMON MD 03/03/19 134 interface
--- NOTE | ~2019-02-24 | DS ---
[place], [place] DISCHARGE SUMMARY NAME: NELLI CANTRELL UNIT #: [id number] ROOM: 407 DOCTOR: RICO SINHAROSANNA BIRTHDATE: [birth year] DOS: 02/27/2019 DIAGNOSES: 1. Acute exacerbation of chronic obstructive pulmonary disease. 2. Acute tracheobronchitis, status post bronchoscopy, so far with negative cultures. 3. Elevated white cell count, steroid effect. The patient's white cell count was 10.1 on admission with chest x-ray showing no abnormalities. 4. Moderate cigarette smoker. 5. Coronary artery disease with history of cardiac catheterization. 6. Bipolar disorder. MEDICATIONS ON DISCHARGE: Will be breathing treatments, Pulmicort twice a day, Xanax 1 mg t.i.d., Augmentin 875 twice a day, aspirin 81 mg daily, atorvastatin 40 daily, Cogentin 1 mg at bedtime, Bumex 1 mg daily, vitamin D 2000 units daily, duloxetine 90 daily, folic acid 1 mg daily, isosorbide 30 daily, levothyroxine 125 mcg daily, metoprolol 25 daily, Protonix 40 daily, prednisone 5 b.i.d. for 10 days, MiraLax 17 g daily, Ranexa 500 b.i.d., Geodon 180 mg at bedtime. HOSPITAL COURSE: The patient is a 54-year-old admitted with complaints of shortness of breath. Please refer to H and P for further details. After admission, the patient was placed on IV steroids, antibiotics, breathing treatments. Dr. Chaves was consulted. He had an elevated white cell count of 20,000 which went up at admission of 10,000, this is most likely steroid effect. The patient does not have any new complaints. She does not have any evidence of toxicity or any fever. The patient underwent bronchoscopy. Bronch culture so far shows no bacterial growth. White cell count this morning is pending. If it shows improvement, the plan is to discharge her to home today to be followed up as an outpatient by Dr. Todd. I encouraged the patient to quit smoking. Suggested to use Nicoderm patch, she declined. [place], [place] DISCHARGE SUMMARY NAME: NELLI CANTRELL UNIT #: [id number] ROOM: 407 DOCTOR: ROSANNA GÓMEZ MD BIRTHDATE: [birth year] ROSANNA GÓMEZ MD CM:MIGUE [id number] ROSANNA GÓMEZ MD 03/08/19 1010 interface
--- NOTE | ~2019-02-24 | PR ---
[place], [place] PROGRESS NOTE NAME: NELLI CANTRELL [facility] #: [id number] UNIT #: [id number] ROOM: 407 DOCTOR: ROSANNA GÓMEZ MD BIRTHDATE: [birth year] DOS: SUBJECTIVE: The patient is resting comfortably, did not seem to have any complaints today. OBJECTIVE: VITAL SIGNS: Graphic trend shows a pressure of 102/58, pulse of 81, respirations 18, temperature 97.5. LUNGS: Diminished breath sounds. No wheezes, rales or rhonchi heard this morning. HEART: Regular. ABDOMEN: Obese, soft, nontender. EXTREMITIES: Without any edema. LABORATORY DATA: White cell count is elevated at 20,000, most likely from steroid effect. ASSESSMENT AND PLAN: 1. Acute exacerbation of chronic obstructive pulmonary disease, on IV steroids and breathing treatments. 2. Acute tracheobronchitis, elevated white cell count is most likely steroid effect. Chest x-ray shows no evidence of pneumonia. Dr. Chaves plans to take her for a bronchoscopy today. 3. Moderate cigarette smoker, counseled. Nicotine patch was ordered. ROSANNA GÓMEZ MD CM:PNTRANS [id number] ROSANNA GÓMEZ MD 02/27/19 0034 interface
--- NOTE | ~2019-02-24 | PROC NOTE ---
[place], [place] PROCEDURE NOTE [id number] UNIT #: [id number] ROOM: 407 DOCTOR: ISAAC DAMON MD,JEANNETTE BIRTHDATE: [birth year] DOS: 02/26/2019 PROCEDURE: Fiberoptic bronchoscopy. PREOPERATIVE DIAGNOSES: The patient with nonresolving cough with severe wheezing, coughing, chest congestion, leukocytosis, multiple antibiotics, and allergies. POSTOPERATIVE DIAGNOSES: Evidence of severe mucus impaction, endobronchial tree bilaterally from all the subsegments and finding of acute tracheobronchitis as well. There were no obstructive lesions. PROCEDURE DESCRIPTION: Informed consent obtained for the patient. The patient brought to the OR and placed in supine position. Conscious sedation administered by the Anesthesia Department. After the sedation, the patient's airway introduced into the mouth. Bronchoscope advanced to the airway into laryngeal area. Epiglottis and vocal cords were seen. The vocal cord moving symmetrically with movements. Bronchoscope advanced to vocal cord into the tracheal lumen. The tracheal lumen was noted with moderate amount of thick mucoid secretion suctioned out to the codie level. Was noted causing impaction of most of the endobronchial subsegments bilaterally. Bronchial washing taken from all the bronchial subsegments. Procedure well tolerated by the patient without any complication. Postoperative findings will be discussed with the patient once the patient recovers the effects of acute sedation. At this time, no immediate change in the treatment plan will be necessary. JEANNETTE GRAY MD CM:PROCNOTE:PROCEDURE NOTE [id number] JEANNETTE DAMON MD
--- NOTE | ~2019-02-24 | WRIGHTHP ---
[place], [place] PATIENT HISTORY AND PHYSICAL EXAM NAME: NELLI CANTRELL [facility] #: [id number] UNIT #: [id number] ROOM: 407 DOCTOR: ASHWIN ARANGO MD BIRTHDATE: [birth year] DOS: 02/24/2019 HISTORY OF PRESENT ILLNESS: The patient came in with increased shortness of breath, wheezing and tachypnea without chest pains, dizziness or fainting episodes. PHYSICAL EXAMINATION: GENERAL APPEARANCE: The patient is alert and oriented x 3, in no visible distress. The patient is obese, has obesity. VITAL SIGNS: Stable. HEENT AND NECK: Extraocular movements are intact. Sclerae are anicteric. Oral mucosa is moist and clean. No obvious facial weakness. Neck is supple without any lymphadenopathy. No thyromegaly. No JVD. No carotid arterial bruits. LUNGS: Auscultation showed expiratory wheezing all over. CARDIOVASCULAR SYSTEM: Heart rate is regular in rate and rhythm. S1 and S2 normally audible. No significant murmur or any other abnormal cardiac sounds. ABDOMEN: Soft, nontender. No obvious organomegaly. Bowel sounds are present. No obvious herniation. EXTREMITIES: Without significant cyanosis or edema. Warm to touch. CENTRAL NERVOUS SYSTEM: Alert and oriented x 3. Cranial nerves II-XII are intact. Speech is normal. The patient is able to move all extremities. Normal muscle strength. Deep tendon reflexes are equal on both sides. Plantars were downgoing. IMPRESSION AND PLAN: 1. Acute exacerbation of chronic obstructive pulmonary disease with wheezing, shortness of breath and tachypnea. 2. Nicotine smoke dependence. 3. Coronary artery disease of the [place] vessels without chest pains. 4. Bipolar disorder to be treated and controlled. ASHWIN ARANGO MD CM:HISPHYS:PATIENT HISTORY AND PHYSICAL EXAMINATION [id number] ASHWIN ARANGO MD 03/10/19 1027 interface
--- NOTE | ~2019-02-24 | PR ---
[place], [place] PROGRESS NOTE NAME: NELLI CANTRELL [facility] #: [id number] UNIT #: [id number] ROOM: 407 DOCTOR: ROSANNA GÓMEZ MD BIRTHDATE: [birth year] DOS: SUBJECTIVE: The patient is doing fine. She does not voice any complaints. OBJECTIVE: VITAL SIGNS: Graphic trend shows a pressure 106/48, pulse of 84, respirations 18, temperature 98.4. LUNGS: Diminished breath sounds. Scattered wheezes. HEART: Regular. ABDOMEN: Obese, soft, nontender. EXTREMITIES: Without any edema. ASSESSMENT AND PLAN: 1. Acute exacerbation of chronic obstructive pulmonary disease. The patient has been admitted for intravenous steroids and antibiotics. 2. Moderate cigarette smoker. The patient is encouraged to stop smoking and she requested a patch, which will be ordered. 3. Coronary artery disease. No acute problems. 4. Chronic kidney disease, stable. 5. Hyperglycemia with type 2 diabetes mellitus, non-insulin dependent. Also, steroid-induced hyperglycemia noted. We will follow closely. ROSANNA GÓMEZ MD CM:PNTRANS 7 ROSANNA GÓMEZ MD 02/25/1922 interface
--- NOTE | ~2019-02-24 | PR ---
[place], [place] PROGRESS NOTE NAME: NELLI CANTRELL [facility] #: [id number] UNIT #: [id number] ROOM: 407 DOCTOR: ROSANNA GÓMEZ MD BIRTHDATE: [birth year] DOS: SUBJECTIVE: The patient is about the same, does not have any new complaints. OBJECTIVE: VITAL SIGNS: Graphic trend shows a pressure of 105/46, pulse of 66, respirations 18, temperature 98. LUNGS: Clear. HEART: Regular. ABDOMEN: Obese, soft. EXTREMITIES: Without any edema. ASSESSMENT AND PLAN: 1. Acute exacerbation of chronic obstructive pulmonary disease, improved and stable. 2. Elevated white cell count of 20,000 on the 5th. This could most likely be steroid effect. Awaiting routine labs today. 3. Bronchoscopy with negative bronch cultures so far and the white cell count is down from 20,000. The plan is to discharge her to home. ROSANNA GÓMEZ MD CM:PNTRANS [id number] ROSANNA GÓMEZ MD 02/27/19 1533 interface
[2019-02-24 16:30] VITALS: BP 112/63
--- NOTE | 2019-02-24 16:30 | NUR ---
A 54, admitted to , under the services of Dr. CONCHITA SINHA,ASHWIN Dalton with a diagnosis of COPD EXACERBATION. Chief complaint is DIRECT ADMIT. Patient arrived via wheel chair from [place]. Monitor applied. Initial assessment completed. Vital signs taken and recorded. DR. CONCHITA SINHA,ASHWIN Dalton notified of admission to the unit. Orders received. See assessment for past medical history, medications and allergies. Patient and/or family oriented to unit. [facility] visitation policy reviewed. Clothing/patient valuable form completed. ADRIANE BAILEY
--- NOTE | 2019-02-24 17:20 | NUR ---
PHYSICIAN WAS NOTIFIED OF DR. GRAY CONSULT. RESPONSE OF NOTIFICATION WAS OK CALL ME BACK ONCE DR ARANGO PUTS IN ORDERS. ADRIANE BAILEY
--- NOTE | 2019-02-24 18:57 | NUR ---
CALLED DR GRAY BACK WITH DR ARANGO'S ORDERS AND NEW ORDERS RECEIVED FOR CIPRO AND SOLU-MEDROL.
[2019-02-24 20:00] VITALS: BP 100/50; BP 90/42
--- NOTE | 2019-02-24 20:05 | NUR ---
24 HR chart check completed.
--- NOTE | 2019-02-24 21:00 | NUR ---
SITTING IN BED, WATCHING TV AND EATING. NO DISTRESS NOTED. RESPIRATIONS EASY. LUNGS DIMINISHED WITH FORCED EXP WHEEZES. PULSE OX 94% 1L. NON-PROD COUGH. C/O DARK URINE BUT DENIES DYSURIA, PER PATIENT SHE ONLY DRINKS POP AND TEA. CALL LIGHT WITHIN REACH. NO VOICED COMPLAINTS
[2019-02-24] MEDS ORDERED: HEALTHYLAX17 GM PO (22:02)
[2019-02-24] MEDS ORDERED: BUMETANIDE1 MG PO (22:09)
[2019-02-24] MEDS ORDERED: DULOXETINE HCL60 MG PO (22:10)
--- NOTE | 2019-02-24 22:22 | NUR ---
REQUESTED AND RECEIVED XANAX PER PRN ORDER PER HOME ROUTINE TO ASSIST WITH SLEEP. CALL LIGHT WITHIN REACH. WILL MONITOR
[2019-02-25] VITALS: BP 105/39; BP 106/48
--- NOTE | 2019-02-25 | NUR ---
EARLIER MEDS EFFECTIVE, SLEEPING. RESPIRATIONS EASY. VSS. CALL LIGHT WITHIN REACH.
--- NOTE | 2019-02-25 06:00 | NUR ---
SLEPT THROUGHOUT NIGHT WITH NO DISTRESS NOTED. RESPIRATIONS EASY. O2 IN USE FOR COMFORT. CALL LIGT WITHIN REACH. NO VOICED COMPLAINTS THIS SHIFT
[2019-02-25 06:31] LABS: BASO % 0.4 % (0.0-1.0); EOS % 0.1 % (1.0-4.0); HEMATOCRIT 34.2 % (37.0-47.0); HEMOGLOBIN 11.1 g/dl (12.0-16.0); MEAN CELL VOLUME 94.5 fl (81.0-99.0); MEAN CORPUSCULAR HGB 30.7 pg (27.0-31.0); MEAN CORPUSCULAR HGB CONC 32.5 g/dl (33.0-37.0); MEAN PLATELET VOLUME 9.2 fl (9.6-12.3); MONO # 0.1 10*3/uL (0.1-1.0); NEUT # 7.8 10*3/uL (2.3-7.9); NEUT % 77.4 % (47.0-73.0); PLATELET COUNT AUTOMATED 341 10*3/uL (130-400); RED BLOOD COUNT 3.62 10*6/uL (4.10-5.10); RED CELL DISTRI WIDTH 14.2 % (0-14.5); WHITE BLOOD COUNT 10.1 10*3/uL (4.8-10.8)
[2019-02-25 06:33] LABS: BUN 14 mg/dl (7-24); CHLORIDE 108 mmol/L (98-107); POTASSIUM 3.9 mmol/L (3.5-5.1); SODIUM 140 mmol/L (136-145)
[2019-02-25 08:00] VITALS: BP 110/52
[2019-02-25 12:00] VITALS: BP 114/57
[2019-02-25 12:32] LABS: ACT PARTIAL THROMBO TIME 25.4 SECONDS (20.0-32.1); INTERNATIONAL NORM RATIO 0.9 (2.0-3.5)
[2019-02-25 16:00] VITALS: BP 100/55
[2019-02-25 20:00] VITALS: BP 104/47
--- NOTE | 2019-02-25 23:21 | NUR ---
ASSUMED CARE OF PT AT THIS TIME. PT AWAKE IN BED. RESPIRATIONS EASY. NO S/S OF DISTRESS NOTED. WILL MONITOR. CALL LIGHT IN REACH.
[2019-02-26] VITALS (11 sets, daily range): BP systolic 102–120; BP diastolic 32–64
--- NOTE | 2019-02-26 04:24 | NUR ---
PT ASLEEP IN BED. RESPIRATIONS EASY. NO S/S OF DISTRESS NOTED. WILL MONITOR. CALL LIGHT LEFT IN REACH.
[2019-02-26 06:51] LABS: BASO % 0.1 % (0.0-1.0); HEMOGLOBIN 10.7 g/dl (12.0-16.0); LYMPH # 2.8 10*3/uL (1.3-4.4); LYMPH % 13.3 % (27.0-41.0); MEAN CELL VOLUME 95.1 fl (81.0-99.0); MEAN CORPUSCULAR HGB 30.8 pg (27.0-31.0); MEAN CORPUSCULAR HGB CONC 32.4 g/dl (33.0-37.0); MEAN PLATELET VOLUME 9.3 fl (9.6-12.3); MONO # 0.8 10*3/uL (0.1-1.0); MONO % 3.9 % (3.0-9.0); NEUT # 16.8 10*3/uL (2.3-7.9); NEUT % 81.3 % (47.0-73.0); PLATELET COUNT AUTOMATED 364 10*3/uL (130-400); RED BLOOD COUNT 3.47 10*6/uL (4.10-5.10); RED CELL DISTRI WIDTH 14.2 % (0-14.5); WHITE BLOOD COUNT 20.7 10*3/uL (4.8-10.8)
[2019-02-26 07:23] LABS: BUN 22 mg/dl (7-24); CHLORIDE 109 mmol/L (98-107); POTASSIUM 4.4 mmol/L (3.5-5.1); SODIUM 141 mmol/L (136-145)
[2019-02-26 07:25] LABS: CREATININE 1.09 mg/dL (0.55-1.02)
--- NOTE | 2019-02-26 08:00 | NUR ---
PT OFF OF FLOOR AT THIS TIME FOR BRONCHOSCOPY.
--- NOTE | 2019-02-26 09:00 | NUR ---
Real Estate Agent/Broker in to see patient. She is currently not in her room. She is in surgery having a bronchoscopy.
--- NOTE | 2019-02-26 11:30 | NUR ---
[employer] in to talk to patient. Patient states lives at home with her boyfriend and her daughter. There are 15 steps in the home. Physician: Dr. Jose Todd Pharmacy: [facility] Home health services: none Patient's level of ADLs: INDEPENDENT Patient has working utilities: yes DME: [employer]bul[employer] Follow-up physician's appointment after d/c: she prefers to make her own follow up appt after discharge Does patient want to access PORTAL?: no Discharge plan discussed with patient. She lives at home with her boyfriend and her daughter. She is normally independent in her ADLs and ambulation. Discussed short term SNF and she is agreeable. When provided with a list of facilities she chose [facility]. Await therapy assessments. ANTONIO KEYS
--- NOTE | 2019-02-26 11:31 | NUR ---
PHYSICAL THERAPY Patient evaluated on 4, full evaluation to follow. Continue with PT as per plan of care with fall, anxiety, severe apprehsnion of mobility and acute debility precautions. Home with family assist, as prior and out patient PT for balance and mobility training. PAtient is moderate complexity via chart review, tests and evaluation: 69274. Thank you for this referral. Natalya Bravo,PT
--- NOTE | 2019-02-26 13:18 | NUR ---
Wanda Patel was evaluated by occupational therapy on 02/26/19. She is able to complete ADL's and functional transfers independently. She has decreased dynamic standing balance to fair after amublating 100 feet without an assistive device. She reports being fearful of falling and prefers to have her ambulate with her since her syncopal episode. No further acute OT at this time, patient is able to complete ADL's and functional transfers independently. Defer balance retraining to PT. Discharge patient home with family assist. Jonelle Jang OTR/L
--- NOTE | 2019-02-26 19:13 | NUR ---
Shift chart check completed.
--- NOTE | 2019-02-26 21:59 | NUR ---
PRN PO XANAX GIVEN PER PT REQUEST
[2019-02-27] VITALS: BP 105/46
--- NOTE | 2019-02-27 01:41 | NUR ---
24 HR chart check completed.
[2019-02-27] MEDS ORDERED: PREDNISONE5 MG PO (07:05)
[2019-02-27] MEDS ORDERED: AUGMENTIN 875875 MG PO (07:05)
[2019-02-27 08:24] VITALS: BP 108/52
[2019-02-27 08:26] LABS: HEMATOCRIT 33.8 % (37.0-47.0); HEMOGLOBIN 11.1 g/dl (12.0-16.0); MEAN CELL VOLUME 94.7 fl (81.0-99.0); MEAN CORPUSCULAR HGB 31.1 pg (27.0-31.0); MEAN CORPUSCULAR HGB CONC 32.8 g/dl (33.0-37.0); MEAN PLATELET VOLUME 9.2 fl (9.6-12.3); PLATELET COUNT AUTOMATED 396 10*3/uL (130-400); RED BLOOD COUNT 3.57 10*6/uL (4.10-5.10); RED CELL DISTRI WIDTH 14.4 % (0-14.5); WHITE BLOOD COUNT 20.4 10*3/uL (4.8-10.8)
[2019-02-27 08:45] LABS: PLATELET SUFFICIENCY NORMAL (NORMAL); TOTAL CELLS COUNTED 100 #CELLS
--- NOTE | 2019-02-27 09:05 | NUR ---
NOTIFIED DR GÓMEZ OF PT WBC COUNT. DISCHARGE IS PENDING FOR PATIENT. ORDERS GIVEN TO ASK DR GRAY IF HE FEELS PT IS READY TO GO HOME. WILL NOTIFY PHYSICIAN AND NOTIFY PT.
--- NOTE | 2019-02-27 10:13 | NUR ---
DR GRAY GIVES OKAY FOR PT TO BE DISCHARGED. WILL NOTIFY PT.
--- NOTE | 2019-02-27 10:32 | NUR ---
Discharge instructions reviewed with patient/family. Patient receptive and verbalizes understanding. Follow-up care arranged. Written instructions given to patient/family. OZIEL MARQUES
[2019-02-27 13:05] LABS: ACID FAST SPEC PROCESSING Concentration (.)
[2019-04-05 13:04] LABS: ACID FAST CULTURE Negative (.)
== END 2019-02-27 10:32 | disposition home or self-care (01) | DRG 202 ==
LOC: 4E 16:14
PROVIDERS: Internal Medicine; Internal Medicine Critical Care Medicine; ADMIT Internal Medicine
PROC: 0BC18ZZ Extirpation of Matter from Trachea, Via Natural or Artificial Opening Endoscopic (ICD-10-PCS; principal; 2019-02-26)
PROC: 0BC98ZZ Extirpation of Matter from Lingula Bronchus, Via Natural or Artificial Opening Endoscopic (ICD-10-PCS; 2019-02-26)
PROC: 0BC48ZZ Extirpation of Matter from Right Upper Lobe Bronchus, Via Natural or Artificial Opening Endoscopic (ICD-10-PCS; 2019-02-26)
PROC: 0BC88ZZ Extirpation of Matter from Left Upper Lobe Bronchus, Via Natural or Artificial Opening Endoscopic (ICD-10-PCS; 2019-02-26)
PROC: 0BC58ZZ Extirpation of Matter from Right Middle Lobe Bronchus, Via Natural or Artificial Opening Endoscopic (ICD-10-PCS; 2019-02-26)
PROC: 0BC38ZZ Extirpation of Matter from Right Main Bronchus, Via Natural or Artificial Opening Endoscopic (ICD-10-PCS; 2019-02-26)
PROC: 0BC78ZZ Extirpation of Matter from Left Main Bronchus, Via Natural or Artificial Opening Endoscopic (ICD-10-PCS; 2019-02-26)
PROC: 0BC68ZZ Extirpation of Matter from Right Lower Lobe Bronchus, Via Natural or Artificial Opening Endoscopic (ICD-10-PCS; 2019-02-26)
PROC: 0BCB8ZZ Extirpation of Matter from Left Lower Lobe Bronchus, Via Natural or Artificial Opening Endoscopic (ICD-10-PCS; 2019-02-26)
DX: J20.9 Acute bronchitis, unspecified (principal); J44.0 Chronic obstructive pulmonary disease with (acute) lower respiratory infection; J44.1 Chronic obstructive pulmonary disease with (acute) exacerbation; G47.33 Obstructive sleep apnea (adult) (pediatric); E11.65 Type 2 diabetes mellitus with hyperglycemia; F17.210 Nicotine dependence, cigarettes, uncomplicated; I25.10 Atherosclerotic heart disease of native coronary artery without angina pectoris; F31.9 Bipolar disorder, unspecified; T38.0X5A Adverse effect of glucocorticoids and synthetic analogues, initial encounter; E66.9 Obesity, unspecified; D72.829 Elevated white blood cell count, unspecified; I12.9 Hypertensive chronic kidney disease with stage 1 through stage 4 chronic kidney disease, or unspecified chronic kidney disease; N18.9 Chronic kidney disease, unspecified; E11.22 Type 2 diabetes mellitus with diabetic chronic kidney disease; F41.1 Generalized anxiety disorder; K21.9 Gastro-esophageal reflux disease without esophagitis; Y92.89 Other specified places as the place of occurrence of the external cause; Z71.6 Tobacco abuse counseling; Z88.8 Allergy status to other drugs, medicaments and biological substances; Z88.1 Allergy status to other antibiotic agents; Z68.33 Body mass index [BMI] 33.0-33.9, adult

== ENCOUNTER 2019-04-08 22:09 | Emergency (ER) | payer OTHER ==
[~2019-04-08] VITALS: Ht 187.9 cm; Wt 88.0 kg
[~2019-04-08 22:09] MED LIST changes: +DULOXETINE HCL60 MG PO; +HEALTHYLAX17 GM PO; +PREDNISONE5 MG PO
== END 2019-04-08 22:43 | disposition home or self-care (01) ==
LOC: ED 22:09
DX: S60.445A External constriction of left ring finger, initial encounter (principal); F17.200 Nicotine dependence, unspecified, uncomplicated; Z90.89 Acquired absence of other organs; Z79.82 Long term (current) use of aspirin; Z79.899 Other long term (current) drug therapy; Z88.1 Allergy status to other antibiotic agents; Z88.3 Allergy status to other anti-infective agents; Z88.8 Allergy status to other drugs, medicaments and biological substances; X58.XXXA Exposure to other specified factors, initial encounter; Y93.89 Activity, other specified; Y92.89 Other specified places as the place of occurrence of the external cause; Y99.9 Unspecified external cause status

== ENCOUNTER → 2019-05-24 | Outpatient (CLI) | payer OTHER ==
[~2019-05-24] MED LIST changes: +ALPRAZOLAM0.5 M3 PO; +CLEOCIN HCL300 MG PO; +NICODERM T; +VICTOZA 2-0.6 MG/0.1 SQ
[2019-05-24 12:37] LABS: URINE AMPHETAMINES < 1000 (1000ng/ml); URINE BARBITURATES < 200 (200ng/ml); URINE BENZODIAZEPINES > 200 (200ng/ml); URINE CANNABINOIDS (THC) < 50 (50ng/ml); URINE COCAINE < 300 (300ng/ml); URINE METHADONE < 300 (300ng/ml); URINE OPIATES < 300 (300ng/ml)
[2019-05-24 12:39] LABS: URINE PHENCYCLIDINE < 25 (25ng/ml)
== END | disposition home or self-care (01) ==
LOC: LAB 10:59
PROVIDERS: Nurse Practitioner Family
DX: Z51.81 Encounter for therapeutic drug level monitoring (principal); E11.9 Type 2 diabetes mellitus without complications; Z79.899 Other long term (current) drug therapy

== ENCOUNTER → 2019-06-11 | Outpatient (CLI) | payer OTHER ==
[~2019-06-11] MED LIST changes: -ALPRAZOLAM0.5 M3 PO; -CLEOCIN HCL300 MG PO; -NICODERM T; -VICTOZA 2-0.6 MG/0.1 SQ
== END | disposition home or self-care (01) ==
LOC: CARD 06-10 10:30
DX: R00.2 Palpitations (principal)

== ENCOUNTER 2019-07-27 16:53 | Inpatient (IN) | payer OTHER ==
[~2019-07-27] VITALS: Ht 157.5 cm; Wt 82.3 kg
[2019-07-27 17:07] VITALS: BP 123/94
--- NOTE | 2019-07-27 17:07 | NUR ---
A 54, admitted to , under the services of Dr. CONCHITA SINHA,ASHWIN Dalton with a diagnosis of COPD EXACERBATION. Chief complaint is HIT HEAD ON A FALL OUTSIDE, WHEEZING, POOR APETITE, SLEEPING MORE THAN USUAL. Patient arrived via ambulatory from OR. Monitor applied. Initial assessment completed. Vital signs taken and recorded. DR. CONCHITA SINHA,ASHWIN Dalton notified of admission to the unit. Orders received. See assessment for past medical history, medications and allergies. Patient and/or family oriented to unit. [facility] visitation policy reviewed. Clothing/patient valuable form completed. STEPHAN MEIER
--- NOTE | 2019-07-27 17:07 | NUR ---
A 54, admitted to , under the services of Dr. CONCHITA SINHA,ASHWIN Dalton with a diagnosis of ACUTE EXACERBATION COPD. Chief complaint is SOB WHEEZING. Patient arrived via stretcher from [place]. Monitor applied. Initial assessment completed. Vital signs taken and recorded. DR. CONCHITA SINHA,ASHWIN Dalton notified of admission to the unit. Orders received. See assessment for past medical history, medications and allergies. Patient and/or family oriented to unit. [facility] visitation policy reviewed. Clothing/patient valuable form completed. CHRISSIE MARTINEZ
--- NOTE | 2019-07-27 17:35 | NUR ---
IV started right hand with #24 angiocath after 2 attempts. The IV site was prepped with Chloraprep. Heparin lock attached. Sterile dressing applied. Patient tolerated precedure well. Procedure performed according to [facility] policy & procedure. DAVE HERNADEZ
[2019-07-27 17:52] LABS: HEMATOCRIT 34.2 % (37.0-47.0); HEMOGLOBIN 11.3 g/dl (12.0-16.0); MEAN CELL VOLUME 96.6 fl (81.0-99.0); MEAN CORPUSCULAR HGB 31.9 pg (27.0-31.0); MEAN PLATELET VOLUME 8.6 fl (9.6-12.3); PLATELET COUNT AUTOMATED 407 10*3/uL (130-400); RED BLOOD COUNT 3.54 10*6/uL (4.10-5.10); RED CELL DISTRI WIDTH 12.9 % (0-14.5); WHITE BLOOD COUNT 12.2 10*3/uL (4.8-10.8)
[2019-07-27] MEDS ORDERED: VICTOZA 2-0.6 MG/0.1 SQ (17:55)
--- NOTE | 2019-07-27 18:05 | NUR ---
MED REC COMPLETED.
[2019-07-27 18:06] LABS: ALBUMIN 3.2 gm/dl (3.1-4.5); ALKALINE PHOSPHATASE 80 U/L (45-117); BUN 15 mg/dl (7-24); CHLORIDE 104 mmol/L (98-107); CREATININE 1.12 mg/dL (0.55-1.02); SGOT/AST 10 IU/L (3-35); SGPT/ALT 19 U/L (12-78); SODIUM 137 mmol/L (136-145)
[2019-07-27 18:17] LABS: PLATELET SUFFICIENCY HIGH (NORMAL); TOTAL CELLS COUNTED 100 #CELLS
[2019-07-27 20:00] VITALS: BP 110/42
--- NOTE | 2019-07-27 20:28 | NUR ---
NOTIFIED OF CXR AND CT HEAD RESULTS. ALSO DISCUSSED HOME MEDICATIONS NEEDED FOR HS PER PT. NEW ORDERS RECEIVED, STATES HE WILL PUT IN ORDER FOR ABX IN AM.
--- NOTE | 2019-07-27 21:17 | NUR ---
PT 100% ON 2L NC. PT HAS HX OF COPD. WILL TITRATE DOWN. DECREASED TO 1L NC AT THIS TIME.
--- NOTE | 2019-07-27 21:39 | NUR ---
POX 98% ON 1L NC. NASAL CANNULA REMOVED AT THIS TIME. WILL MONITOR POX. PT EDUCATED TO USE CALL LIGHT IF NEW/WORSENING SYMPTOMS PERSIST.
[2019-07-28] VITALS: BP 114/50
--- NOTE | 2019-07-28 02:00 | NUR ---
PATIENT RESTING IN BED WITH EYES CLOSED. AROUSES TO VERBAL STIMULI. RESPIRATIONS REGULAR AND NON-LABORED ON ROOM AIR. O2 SAT 98%. DENIES COMPLAINTS OF PAIN OR DISCOMFORT. AMBULATES TO BATHROOM PER SELF. I&E WHEEZES NOTED BILATERALLY. WILL CONTINUE TO MONITOR.
--- NOTE | 2019-07-28 07:30 | NUR ---
ASSESSMENT COMPLETED AND DOCUMENTED, PT SLEEPIGN AT THIS TIME, NO COMPLAINTS AT THIS TIME. JESSI BARR SPCC
[2019-07-28 07:41] VITALS: BP 122/57
--- NOTE | 2019-07-28 09:00 | NUR ---
Sweatband Shaper in to talk to patient. Patient states lives at home with her boyfriend and her daughter. There are 15 steps in the home. Physician: Dr. Jose Todd [facility]acy: [facility] Home health services: none Patient's level of ADLs: INDEPENDENT Patient has working utilities: yes DME: nebulizer Follow-up physician's appointment after d/c: she prefers to make her own follow up appt after discharge Does patient want to access PORTAL?: no Discharge plan discussed with patient. She lives at home with her boyfriend and her daughter. She is normally independent in her ADLs and ambulation. Discussed short term SNF and home health care services and she is unsure of any home needs at this time. Will continue to follow for discharge needs. Treating COPD. ANTONIO KEYS
--- NOTE | 2019-07-28 09:47 | NUR ---
PT PLEASANT, RELAXING IN BED WATCHING TV & WAITING ON DR. DENIES ANY FOOD AT THIS TIME AND HAS NO COMPAINTS OF PAIN. JESSI BARR SPNRCC
[2019-07-28 11:25] LABS: BILIRUBIN NEGATIVE (NEGATIVE); BLOOD NEGATIVE (NEGATIVE); CLARITY CLOUDY (CLEAR); COLOR YELLOW (YELLOW); GLUCOSE NEGATIVE (NEGATIVE); KETONE NEGATIVE (NEGATIVE); LEUKO ESTERASE TRACE (NEGATIVE); NITRITE POSITIVE (NEGATIVE); UROBILINOGEN 0.2 E.U./dl (0.2-1.0)
[2019-07-28 12:16] LABS: BACTERIA 4+; WBC 16-20 wbc/hpf (0-5)
[2019-07-28 13:33] VITALS: BP 95/50
--- NOTE | 2019-07-28 13:47 | NUR ---
PT HAS NO COMPLAINTS AT THIS TIME, RELAXING IN BED. REPORT GIVEN TO ARIANE GOMEZ. JESSI BARR SPCC
[2019-07-28 16:00] VITALS: BP 92/50
--- NOTE | 2019-07-28 18:21 | NUR ---
ADMINISTERED DILAUDID IV X 1 ORDERED FOR RIGHT EAR PAIN ORDERED.
--- NOTE | 2019-07-28 20:50 | NUR ---
SPOKE WITH DR ARANGO REGARDING PATIENTS REQUEST TO BE SWITCHED FROM TYLENOL TO MOTRIN FOR PAIN. STATED TO D/C TYLENOL AND ADD MOTRIN 600MG PO 3X A DAY PRN FOR PAIN. ORDERS REPEATED BACK.
--- NOTE | 2019-07-28 21:15 | NUR ---
PT COMPLAINS OF RIGHT SIDED FACE/JAW PAIN. MEDICATED PER ORDER. WILL MONITOR FOR RELIEF.VOICES NO OTHER CONCERNS AT THIS TIME. RESTING IN BED. BED ALARM ON. CALL LIGHT WITHIN REACH.
--- NOTE | 2019-07-28 21:42 | NUR ---
IV started right antecubital with #22 protective cath after 1 attempts. Site prepped with Chloroprep. Sterile dressing applied. Patient tolerated procedure well. DOMINGUEZ BOLTON
--- NOTE | 2019-07-28 21:42 | NUR ---
Hep Lock discontinued. Site asymptomatic. Pressure applied. Sterile dressing applied. DOMINGUEZ BOLTON
--- NOTE | 2019-07-28 22:15 | NUR ---
MOTRIN EFFECTIVE PER PT
[2019-07-29] VITALS: BP 97/55
--- NOTE | 2019-07-29 01:43 | NUR ---
Patient resting quietly with no c/o or s/s ofdiscomfort. Respirations easy and regular. Vital signs stable. No overt distress. Bed alarm on. Call light within reach. DOMINGUEZ BOLTON
--- NOTE | 2019-07-29 05:04 | NUR ---
24 HR chart check completed.
--- NOTE | 2019-07-29 05:59 | NUR ---
BLOOD SUGAR 201
[2019-07-29 08:00] VITALS: BP 109/49
--- NOTE | 2019-07-29 10:30 | NUR ---
Fish Cutter in to see patient. No new needs or request at this time. She denies any home needs. When medically stable she will be discharged to home. Dr. Chaves consulted. She is receiving solumedrol, duonebs, and cleocin due to her multiple medication allergies for the treatment of COPD. Sputum culture pending.
[2019-07-29 12:00] VITALS: BP 115/46
[2019-07-29 16:00] VITALS: BP 120/60
[2019-07-29 20:00] VITALS: BP 143/52
--- NOTE | 2019-07-29 20:00 | NUR ---
ATTEMPTED TO REACH DR ARANGO. PT IS COMPLAINING OF LEFT HAND NUMBNESS THAT SHE STATES IS FROM A PRIOR FALL AT HOME. ALSO STATING SHE IS VERY ANXIOUS BECAUSE OF "ALL OF THE BABIES THAT WERE DELIVERED TODAY" AND THAT SHE IS HEARING "THE VOICES AGAIN". VITALS STABLE. FAMILY AT BEDSIDE. BED ALARM ON. CALL LIGHT WITHIN REACH. WILL ATTEMPT TO REACH DR ARANGO AGAIN
--- NOTE | 2019-07-29 20:11 | NUR ---
SPOKE WITH DR ARANGO. STATED TO HAVE U COME UP TO EVAL AND SPEAK WITH PT. STATES SHE IS A VERY ANXIOUS WOMEN WITH ALOT OF PSYC HISTORY. ORDERS REPEATED BACK.
--- NOTE | 2019-07-29 20:14 | NUR ---
PT COMPLAINS OF 5/10 JAW PAIN. MEDICATED PER ORDER. WILL MONITOR FOR RELIEF. RESTING IN BED. BED ALARM ON. CALL LIGHT WITHIN REACH.
--- NOTE | 2019-07-29 20:20 | NUR ---
LUIS FLOAT NURSE IN TO TALK WITH PT
--- NOTE | 2019-07-29 20:26 | NUR ---
PTS DAUGHTER CALLED. DISCUSSED PLAN OF CARE. QUESTIONS ANSWERED.
--- NOTE | 2019-07-29 21:43 | NUR ---
IN TO CHECK ON PT AND GIVE NIGHTLY MEDICATIONS. CURRENTLY RESTING IN BED. APPEARS LESS ANXIOUS. STATED TALKING TO THE NURSE HELPED HER ALOT AND THAT THE MOTRIN HELPED HER PAIN. CURRENTLY VOICING NO COMPLAINTS. BED ALARM ON. CALL DELILAH HORNE.
[2019-07-30] VITALS: BP 107/61
--- NOTE | 2019-07-30 00:28 | NUR ---
24 HR chart check completed.
--- NOTE | 2019-07-30 02:07 | NUR ---
Patient resting quietly with no c/o or s/s of discomfort. Respirations easy and regular. Vital signs stable. No overt distress. Call light within reach. Bed alarm on DOMINGUEZ BOLTON
--- NOTE | 2019-07-30 03:38 | NUR ---
SERICULTURE TEACHER RECIEVED PHONE CALL FROM THE ER WAITING ROOM FROM SOMEONE STATING TO BE THE PATIENTS SISTER AND REQUESTING TO COME UP STAIRS. REGISTRATION STAFF STATED THAT THERE WERE TWO WOMEN WHO APPEARED TO BE INTOXICATED AND BELIGERANT IN THE WAITING ROOM. ATTEMPED TO EXPLAIN THAT IT WAS VERY EARLY IN THE MORNING AND THAT VISITING HOURS WOULD RESUME AT 9AM, ALSO THAT THE PATIENT WAS FIINALLY GETTING SOME REST. THE WOMAN ON THE PHONE BECAME AGITATED WITH THE SERICULTURE TEACHER STATING SHE WAS GOING TO TURN HER INTO THE PLASTIC DESIGN APPLIER AND WAS DEMANDING TO KNOW HER FIRST AND LAST NAME. SERICULTURE TEACHER GAVE THE CALLER HER FIRST NAME AND AGAIN TRIED TO CALM HER DOWN AND EXPLAIN THE SITUATION TO HER. THE CALLLER REMAINED FRUSTRATED AND EVENTUALLY ENDED THE CALL.
[2019-07-30 08:00] VITALS: BP 98/43
--- NOTE | 2019-07-30 09:00 | NUR ---
Edge Grinder Machine in to see patient. No new needs or request at this time. She denies any home needs. When medically stable she will be discharged to home. Dr. Chaves consulted. She is receiving solumedrol, duonebs, and cleocin due to her multiple medication allergies for the treatment of COPD. Sputum culture pending with gram stain of GPB and GPC.
[2019-07-30 09:32] VITALS: BP 104/50
[2019-07-30 12:00] VITALS: BP 116/51
[2019-07-30 16:00] VITALS: BP 109/46
--- NOTE | 2019-07-30 19:20 | NUR ---
REPORT RECEIVED FROM DAYLIGHT NURSE. PT AWAKE AT THIS TIME. VOICES NO COMPLAINTS AT THIS TIME. CALL LIGHT IN REACH.
[2019-07-30 20:00] VITALS: BP 115/64
--- NOTE | 2019-07-30 22:00 | NUR ---
PT AWAKE, RESPIRATIONS EASY. PT WATCHING TV AND VOICES NO COMPLAINTS AT THIS TIME. CALL LIGHT IN REACH
[2019-07-31] VITALS: BP 123/53
[2019-07-31 06:13] VITALS: BP 128/64
[2019-07-31 08:00] VITALS: BP 124/51
--- NOTE | 2019-07-31 08:30 | NUR ---
Patient resting quietly with no c/o discomfort. Respirations easy and regular. Vital signs stable. No overt distress. ARIANE DENIS
[2019-07-31 12:00] VITALS: BP 99/48
[2019-07-31] MEDS ORDERED: NICODERM T (15:12)
[2019-07-31] MEDS ORDERED: ALPRAZOLAM0.5 M3 PO (15:12)
[2019-07-31] MEDS ORDERED: MEDROL DOSEPAK4 MG PO (15:23)
[2019-07-31] MEDS ORDERED: CLEOCIN HCL300 MG PO (15:23)
--- NOTE | 2019-07-31 15:51 | NUR ---
Discharge instructions reviewed with patient/family. Patient receptive and verbalizes understanding. Follow-up care arranged. Written instructions given to patient/family. ARIANE DENIS.
== END 2019-07-31 19:22 | disposition home or self-care (01) | DRG 145 ==
LOC: 4E 16:53
PROVIDERS: ADMIT Internal Medicine
DX: J20.9 Acute bronchitis, unspecified (principal); G93.41 Metabolic encephalopathy; J44.1 Chronic obstructive pulmonary disease with (acute) exacerbation; E66.9 Obesity, unspecified; Z68.33 Body mass index [BMI] 33.0-33.9, adult; E03.9 Hypothyroidism, unspecified; I10 Essential (primary) hypertension; E11.9 Type 2 diabetes mellitus without complications; N39.0 Urinary tract infection, site not specified; J44.0 Chronic obstructive pulmonary disease with (acute) lower respiratory infection; K21.0 Gastro-esophageal reflux disease with esophagitis; F17.210 Nicotine dependence, cigarettes, uncomplicated; B96.89 Other specified bacterial agents as the cause of diseases classified elsewhere; I25.10 Atherosclerotic heart disease of native coronary artery without angina pectoris; E55.9 Vitamin D deficiency, unspecified; F33.1 Major depressive disorder, recurrent, moderate; F41.1 Generalized anxiety disorder; J45.51 Severe persistent asthma with (acute) exacerbation; Z88.1 Allergy status to other antibiotic agents; Z88.8 Allergy status to other drugs, medicaments and biological substances; Z71.6 Tobacco abuse counseling; Z82.49 Family history of ischemic heart disease and other diseases of the circulatory system; Z82.3 Family history of stroke; Z83.3 Family history of diabetes mellitus; Z80.8 Family history of malignant neoplasm of other organs or systems

== ENCOUNTER → 2019-08-12 | Outpatient (CLI) | payer OTHER ==
[~2019-08-12] MED LIST changes: +ALPRAZOLAM0.5 M3 PO; +CLEOCIN HCL300 MG PO; +NICODERM T; +VICTOZA 2-0.6 MG/0.1 SQ
[2019-08-12 14:22] LABS: BUN 23 mg/dl (7-24); CHLORIDE 107 mmol/L (98-107); POTASSIUM 4.1 mmol/L (3.5-5.1); SODIUM 140 mmol/L (136-145)
[2019-08-12 14:28] LABS: CREATININE 1.07 mg/dL (0.55-1.02)
== END | disposition home or self-care (01) ==
LOC: LAB 13:45
PROVIDERS: Internal Medicine
DX: E87.6 Hypokalemia (principal)

== ENCOUNTER → 2019-10-12 | Outpatient (CLI) | payer OTHER ==
[2019-10-12 10:04] LABS: HEMATOCRIT 39.7 % (37.0-47.0); HEMOGLOBIN 12.8 g/dl (12.0-16.0); MEAN CELL VOLUME 97.1 fl (81.0-99.0); MEAN CORPUSCULAR HGB 31.3 pg (27.0-31.0); MEAN CORPUSCULAR HGB CONC 32.2 g/dl (33.0-37.0); MEAN PLATELET VOLUME 8.3 fl (9.6-12.3); PLATELET COUNT AUTOMATED 523 10*3/uL (130-400); RED BLOOD COUNT 4.09 10*6/uL (4.10-5.10); RED CELL DISTRI WIDTH 13.8 % (0-14.5); WHITE BLOOD COUNT 14.1 10*3/uL (4.8-10.8)
[2019-10-12 10:31] LABS: ALBUMIN 3.2 gm/dl (3.1-4.5); ALKALINE PHOSPHATASE 75 U/L (45-117); BUN 18 mg/dl (7-24); CHLORIDE 110 mmol/L (98-107); CHOLESTEROL 186 mg/dL (<200); CPK 19 U/L (26-192); CREATININE 0.96 mg/dL (0.55-1.02); HDL CHOLESTEROL 70 mg/dl (40-60); LDL CHOLESTEROL 90 mg/dL (9-159); POTASSIUM 4.2 mmol/L (3.5-5.1); SGOT/AST 5 IU/L (3-35); SGPT/ALT 25 U/L (12-78); SODIUM 141 mmol/L (136-145); TOTAL PROTEIN 7.1 gm/dL (6.4-8.2); TRIGLYCERIDES 131 mg/dl (<150); VLDL CHOLESTEROL 26 mg/dL (6-40)
[2019-10-12 10:35] LABS: BASOPHILS 1 % (0-1); TOTAL CELLS COUNTED 100 #CELLS
[2019-10-12 10:36] LABS: THYROID STIM HORMONE (HS) 0.616 uIU/ml (0.358-4.75)
[2019-10-12 10:42] LABS: PLATELET SUFFICIENCY HIGH (NORMAL)
[2019-10-12 12:23] LABS: VITAMIN D, 25-HYDROXY 23.4 ng/mL (30-100)
== END | disposition home or self-care (01) ==
LOC: LAB 09:29
PROVIDERS: Internal Medicine
DX: I10 Essential (primary) hypertension (principal); E11.9 Type 2 diabetes mellitus without complications; E78.2 Mixed hyperlipidemia; R74.8 Abnormal levels of other serum enzymes

== ENCOUNTER 2019-12-10 09:24 | Emergency (ER) | payer OTHER ==
[~2019-12-10] VITALS: Ht 162.5 cm; Wt 80.7 kg
== END 2019-12-10 11:28 | disposition home or self-care (01) ==
LOC: ED 09:24
DX: S09.90XA Unspecified injury of head, initial encounter (principal); G43.909 Migraine, unspecified, not intractable, without status migrainosus; E11.9 Type 2 diabetes mellitus without complications; F41.9 Anxiety disorder, unspecified; J44.9 Chronic obstructive pulmonary disease, unspecified; K21.9 Gastro-esophageal reflux disease without esophagitis; F31.9 Bipolar disorder, unspecified; I25.10 Atherosclerotic heart disease of native coronary artery without angina pectoris; Z88.8 Allergy status to other drugs, medicaments and biological substances; Z79.899 Other long term (current) drug therapy; Z79.82 Long term (current) use of aspirin; Z79.2 Long term (current) use of antibiotics; W10.9XXA Fall (on) (from) unspecified stairs and steps, initial encounter; Y93.89 Activity, other specified; Y92.89 Other specified places as the place of occurrence of the external cause; Y99.8 Other external cause status

== ENCOUNTER 2019-12-26 16:43 | Inpatient (IN) | payer OTHER ==
[~2019-12-26] VITALS: Ht 160 cm; Wt 83.2 kg
[2019-12-26 16:58] VITALS: BP 129/70
[2019-12-26 17:23] LABS: BILIRUBIN NEGATIVE (NEGATIVE); BLOOD TRACE-INTACT (NEGATIVE); CLARITY CLOUDY (CLEAR); COLOR YELLOW (YELLOW); GLUCOSE NEGATIVE (NEGATIVE); KETONE NEGATIVE (NEGATIVE); NITRITE POSITIVE (NEGATIVE); UROBILINOGEN 0.2 E.U./dl (0.2-1.0)
[2019-12-26 17:24] LABS: LEUKO ESTERASE TRACE (NEGATIVE)
[2019-12-26 17:26] LABS: BACTERIA 4+; MUCOUS 2+
[2019-12-26 17:27] LABS: EPITHELIAL CELLS 16-20
[2019-12-26 18:18] LABS: HEMATOCRIT 34.8 % (37.0-47.0); MEAN CELL VOLUME 93.8 fl (81.0-99.0); MEAN CORPUSCULAR HGB 31.5 pg (27.0-31.0); MEAN CORPUSCULAR HGB CONC 33.6 g/dl (33.0-37.0); MEAN PLATELET VOLUME 8.3 fl (9.6-12.3); PLATELET COUNT AUTOMATED 479 10*3/uL (130-400); RED BLOOD COUNT 3.71 10*6/uL (4.10-5.10); RED CELL DISTRI WIDTH 13.4 % (0-14.5)
[2019-12-26 18:38] LABS: ALBUMIN 2.7 gm/dl (3.1-4.5); ALKALINE PHOSPHATASE 74 U/L (45-117); BUN 9 mg/dl (7-24); CHLORIDE 112 mmol/L (98-107); CREATININE 0.77 mg/dL (0.55-1.02); POTASSIUM 3.5 mmol/L (3.5-5.1); SGOT/AST 7 IU/L (3-35); SGPT/ALT 18 U/L (12-78); SODIUM 142 mmol/L (136-145); TOTAL PROTEIN 6.3 gm/dL (6.4-8.2)
[2019-12-26 18:39] LABS: TROPONIN I < 0.015 ng/ml (<0.045)
[2019-12-26 18:40] LABS: ATYPICAL LYMPHS 3 % (0-0); PLATELET SUFFICIENCY HIGH (NORMAL); POLYCHROMASIA SLIGHT; TOTAL CELLS COUNTED 100 #CELLS
[2019-12-26 20:00] VITALS: BP 105/61
[2019-12-26] MEDS ORDERED: HYDROXYZINE PAM25 M1 PO (20:58)
[2019-12-26] MEDS ORDERED: MIRALAX17 GM PO (21:43)
[2019-12-27] VITALS: BP 132/71
[2019-12-27 06:29] LABS: BUN 8 mg/dl (7-24); CHLORIDE 113 mmol/L (98-107); CREATININE 0.68 mg/dL (0.55-1.02); POTASSIUM 3.5 mmol/L (3.5-5.1); SODIUM 142 mmol/L (136-145)
[2019-12-27 08:00] VITALS: BP 107/56
[2019-12-27 16:00] VITALS: BP 102/78
[2019-12-27 20:00] VITALS: BP 104/56
[2019-12-28] VITALS: BP 116/65
[2019-12-28 06:54] LABS: BUN 15 mg/dl (7-24); CHLORIDE 113 mmol/L (98-107); CREATININE 0.76 mg/dL (0.55-1.02); POTASSIUM 4.2 mmol/L (3.5-5.1); SODIUM 140 mmol/L (136-145)
[2019-12-28 08:00] VITALS: BP 138/66
[2019-12-28 16:00] VITALS: BP 129/67
[2019-12-28 20:00] VITALS: BP 106/50
[2019-12-29] VITALS: BP 108/41
[2019-12-29 06:25] LABS: BUN 21 mg/dl (7-24); CHLORIDE 109 mmol/L (98-107); POTASSIUM 5.1 mmol/L (3.5-5.1); SODIUM 141 mmol/L (136-145)
[2019-12-29 06:26] LABS: CREATININE 0.83 mg/dL (0.55-1.02)
[2019-12-29 08:00] VITALS: BP 119/50
[2019-12-29] MEDS ORDERED: REGLAN10 M1 PO (10:08)
[2019-12-29] MEDS ORDERED: DULOXETINE HCL60 MG PO (10:08)
[2019-12-29] MEDS ORDERED: ALPRAZOLAM0.5 M3 PO (10:08)
[2019-12-29] MEDS ORDERED: PANTOPRAZOLE SO40 MG PO (10:27)
[2019-12-29 12:00] VITALS: BP 93/58
== END 2019-12-29 12:15 | disposition home or self-care (01) | DRG 48 ==
LOC: ED 16:43 → EDHOLD 18:58 → 4NE 18:58
PROVIDERS: Emergency Medicine; ADMIT Internal Medicine
DX: E11.43 Type 2 diabetes mellitus with diabetic autonomic (poly)neuropathy (principal); K31.84 Gastroparesis; N39.0 Urinary tract infection, site not specified; E44.0 Moderate protein-calorie malnutrition; K21.9 Gastro-esophageal reflux disease without esophagitis; F33.1 Major depressive disorder, recurrent, moderate; E86.0 Dehydration; E11.65 Type 2 diabetes mellitus with hyperglycemia; K59.00 Constipation, unspecified; I25.10 Atherosclerotic heart disease of native coronary artery without angina pectoris; B96.20 Unspecified Escherichia coli [E. coli] as the cause of diseases classified elsewhere; F41.1 Generalized anxiety disorder; K21.0 Gastro-esophageal reflux disease with esophagitis; E03.9 Hypothyroidism, unspecified; E55.9 Vitamin D deficiency, unspecified; I10 Essential (primary) hypertension; E78.2 Mixed hyperlipidemia; J44.9 Chronic obstructive pulmonary disease, unspecified; F17.210 Nicotine dependence, cigarettes, uncomplicated; Z88.1 Allergy status to other antibiotic agents; Z88.0 Allergy status to penicillin; Z68.32 Body mass index [BMI] 32.0-32.9, adult; Z80.8 Family history of malignant neoplasm of other organs or systems

== ENCOUNTER 2020-05-07 16:11 | Observation (INO) | payer OTHER ==
[~2020-05-07] VITALS: Ht 157.4 cm; Wt 82.6 kg
[~2020-05-07 16:11] MED LIST changes: +HYDROXYZINE PAM25 M1 PO; +MIRALAX17 GM PO; +PANTOPRAZOLE SO40 MG PO; +REGLAN10 M1 PO
[2020-05-07 16:14] VITALS: BP 158/92
[2020-05-07 16:43] LABS: HEMATOCRIT 42.9 % (37.0-47.0); MEAN CELL VOLUME 94.1 fl (81.0-99.0); MEAN CORPUSCULAR HGB 31.6 pg (27.0-31.0); MEAN CORPUSCULAR HGB CONC 33.6 g/dl (33.0-37.0); MEAN PLATELET VOLUME 8.5 fl (9.6-12.3); PLATELET COUNT AUTOMATED 578 10*3/uL (130-400); RED BLOOD COUNT 4.56 10*6/uL (4.10-5.10); RED CELL DISTRI WIDTH 14.7 % (0-14.5); WHITE BLOOD COUNT 15.3 10*3/uL (4.8-10.8)
[2020-05-07 16:58] LABS: ALBUMIN 3.5 gm/dl (3.1-4.5); ALKALINE PHOSPHATASE 103 U/L (45-117); BUN 14 mg/dl (7-24); CHLORIDE 108 mmol/L (98-107); CREATININE 1.03 mg/dL (0.55-1.02); LIPASE 186 U/L (73-393); POTASSIUM 2.8 mmol/L (3.5-5.1); SGOT/AST 6 IU/L (3-35); SGPT/ALT 20 U/L (12-78); SODIUM 139 mmol/L (136-145); TOTAL PROTEIN 8.2 gm/dL (6.4-8.2)
[2020-05-07 17:03] LABS: PLATELET SUFFICIENCY HIGH (NORMAL); TOTAL CELLS COUNTED 100 #CELLS
[2020-05-07 19:30] VITALS: BP 125/48
[2020-05-07] MEDS ORDERED: VICTOZA 3-0.6 MG/0.1 SQ (20:53)
[2020-05-07] MEDS ORDERED: PROTONIX40 MG PO (20:54)
[2020-05-07] MEDS ORDERED: ACID GONE TABL1 EACH PO (20:55)
[2020-05-07] MEDS ORDERED: ATORVASTATIN CA40 M1 PO (20:56)
[2020-05-07] MEDS ORDERED: ASPIRIN ADULT L81 M2 PO (20:56)
[2020-05-07] MEDS ORDERED: HYDROXYZINE HCL25 MG PO (20:59)
[2020-05-07] MEDS ORDERED: NATURE'S BLEND F1 MG PO (21:00)
--- NOTE | 2020-05-07 21:00 | NUR ---
PATIENT DENIES ANY OPEN AREAS AT THIS TIME. PATIENT HAS SCABS NOTED TO BILATERAL ARMS, PER PATIENT ITS FROM HER DOG. PATIENT REQUESTING NOT TO CHANGE INTO GOWN AT THIS TIME DUE TO FEELING NAUSEATED.
[2020-05-07] MEDS ORDERED: REGLAN10 M1 PO (21:03)
[2020-05-07 21:22] VITALS: BP 138/56
[2020-05-07 21:29] VITALS: BP 143/62
--- NOTE | 2020-05-07 21:29 | NUR ---
A 55, admitted to 5E, under the services of Dr. CONCHITA SINHA,ASHWIN Dalton with a diagnosis of NAUSEA AND VOMITING. Chief complaint is NAUSEA/VOMITING. Patient arrived via bed from ER. Monitor applied. Initial assessment completed. Vital signs taken and recorded. DR. CONCHITA SINHA,ASHWIN Dalton notified of admission to the unit. Orders received. See assessment for past medical history, medications and allergies. Patient and/or family oriented to unit. [facility] visitation policy reviewed. Clothing/patient valuable form completed. MINI REYES
--- NOTE | 2020-05-07 22:00 | NUR ---
DR. ARANGO NOTIFIED OF COMPLETE HOME MEDICATIONS. ADMISSION ORDERS RECEIVED.
--- NOTE | 2020-05-08 | NUR ---
PT SLEEPING AT THIS TIME. NO S/S OF DISTRESS
--- NOTE | 2020-05-08 05:29 | NUR ---
IN TO SEE PT AND PASS MORNING MEDICATIONS. PT STATES, "I DONT WANT TO TAKE ANY MEDICATIONS THIS MORNING, IM TOO NAUSEOUS" OFFERED ZOFRAN. PT REFUSED.
[2020-05-08 06:17] LABS: BUN 10 mg/dl (7-24); CHLORIDE 115 mmol/L (98-107); POTASSIUM 3.5 mmol/L (3.5-5.1); SODIUM 141 mmol/L (136-145)
[2020-05-08 06:20] LABS: CREATININE 0.83 mg/dL (0.55-1.02)
--- NOTE | 2020-05-08 07:18 | NUR ---
PATIENT MEDICATED WITH PRN ZOFRAN AND SCHEDULED REGLAN PER REQUEST AND COMPLAINTS OF NAUSEA. PATIENT STATES THAT SHE ALSO HS HEADACHE AND IS REQUESTING TYLENOL. WILL MEDICATE ACCORDINGLY.
[2020-05-08 08:00] VITALS: BP 121/61
--- NOTE | 2020-05-08 08:00 | NUR ---
PATIENT MEDICATED WITH TYLENOL FOR COMPLAINTS OF HEADACHE. RN WILL MONITOR FOR EFFECTIVENESS. PATIENT ALSO STATES THAT EARLIER MEDICATIONS HELPED REDUCE HER NAUSEA
--- NOTE | 2020-05-08 09:00 | NUR ---
[place] Program Coordinator in to talk to patient. Patient states lives at home with her boyfriend. There are 15 steps in the home. Physician: Dr. Jose Todd [facility]acy: [facility] Home health services: none Patient's level of ADLs: INDEPENDENT Patient has working utilities: yes DME: nebulizer Follow-up physician's appointment after d/c: she prefers to make her own follow up appt after discharge Does patient want to access PORTAL?: no Discharge plan discussed with patient. She lives at home with her boyfriend. She states she is independent in her ADLs and ambulation. Discussed short term SNF and home health care services and she declines. CM will continue to follow for any discharge planning needs. When medically stable she will be discharged to home. She states her boyfriend, Hi, will provide transportation on discharge. ANTONIO KEYS
--- NOTE | 2020-05-08 09:09 | NUR ---
PATIENT RESTING QUIETLY WITH EYES CLOSED. NO SIGNS OR SYMPTOMS OF DISTRESS. EARLIER MEDICTIONS APPEAR TO HAVE BEEN EFFECTIVE
--- NOTE | 2020-05-08 10:23 | NUR ---
RN CALLED IN TO SEE PATIENT. PATIENT STATES THAT SHE IS WORRIED BECAUSE OF EARLIER MEDICATION, PATIENT STATING THAT SHE DOES NOT TAKE THESE MEDICATIONS AT HOME. RN INFORMED PATIENT THAT HER MEDICATIONS WERE VERIFIED BY THE PHARMACY AND THAT SHE PICKED UP THESE SAME MEDICATIONS ON 04/29, PATIENT STATES SHE IS WORRIED AND THAT SHE WILL HAVE SOMEONE BRING MEDICATIONS BECAUSE SHE DOESNT TAKE THEM. IN THE MEDICATION CLAIM HISTORY PATIENT HAS PICKED UP THESE MEDICATIONS FOR MULTIPLE MONTHS IN A ROW.
--- NOTE | 2020-05-08 15:53 | NUR ---
MEDICATED WITH TYLENOL FOR C/O HEADACHE WILL MONITOR
[2020-05-08 16:00] VITALS: BP 125/61
--- NOTE | 2020-05-08 16:55 | NUR ---
PATIENT RESTING WITH EYES CLOSED, EARLIER MEDICATION APPEARS EFFECTIVE
--- NOTE | 2020-05-08 17:57 | NUR ---
URINES COLLECTED AND SENT
[2020-05-08 18:11] LABS: BILIRUBIN NEGATIVE; BLOOD NEGATIVE (NEGATIVE); CLARITY CLEAR (CLEAR); COLOR YELLOW (YELLOW); GLUCOSE NEGATIVE; KETONE NEGATIVE; LEUKO ESTERASE NEGATIVE (NEGATIVE); NITRITE NEGATIVE (NEGATIVE); SPECIFIC GRAVITY < 1.005 (1.001-1.030); UROBILINOGEN 0.2 E.U./dl (0.0-1.0)
[2020-05-08 18:14] LABS: BACTERIA TRACE; RBC 0-2 rbc/hpf (0-2); WBC 0-2 wbc/hpf (0-5)
--- NOTE | 2020-05-08 19:00 | NUR ---
REPORT RECEIVED FROM ROBIN GOMEZ. PT WATCHING TV. NO COMPLAINTS.
[2020-05-08 20:00] VITALS: BP 106/77
--- NOTE | 2020-05-08 21:00 | NUR ---
PT WATCHING TV AT THIS TIME. NIGHT TIME MEDICATIONS GIVEN. NO COMPLAINTS
[2020-05-09] VITALS: BP 105/53
--- NOTE | 2020-05-09 03:00 | NUR ---
PT SLEEPING AT THIS TIME. RESPIRATIONS EASY AND UNLABORED
--- NOTE | 2020-05-09 05:45 | NUR ---
IN TO SEE PT. PT AWAKENS EASILY, MORNING MEDICATIONS GIVEN. NO COMPLAINTS AT THIS TIME. DENIES ANY NAUSEA
[2020-05-09 07:28] LABS: CHLORIDE 113 mmol/L (98-107); POTASSIUM 3.8 mmol/L (3.5-5.1); SODIUM 142 mmol/L (136-145)
[2020-05-09 07:35] LABS: BUN 11 mg/dl (7-24); CREATININE 0.84 mg/dL (0.55-1.02)
[2020-05-09 08:00] VITALS: BP 112/63
--- NOTE | 2020-05-09 08:30 | NUR ---
CM in to see patient. No new needs or request at this time. Discussed home health care services and she declines. CM will continue to follow for any discharge planning needs. When medically stable she will be discharged to home.
--- NOTE | 2020-05-09 09:43 | NUR ---
Discussed discharge planning with Dr. Todd. Plan is to discharge patient today.
--- NOTE | 2020-05-09 11:20 | NUR ---
IV discontinued. Site asymptomatic. Pressure applied. Sterile dressing applied. ROBIN BAL
--- NOTE | 2020-05-09 11:27 | NUR ---
Discharge instructions reviewed with patient/family. Patient receptive and verbalizes understanding. Follow-up care arranged. Written instructions given to patient/family. ROBIN BAL
--- NOTE | 2020-05-09 11:28 | NUR ---
AWAITING RIDE FROM FAMILY
--- NOTE | 2020-05-09 11:42 | NUR ---
PATIENT OFF FLOOR TO HOME AT THIS TIME. ALL BELONGINGS SENT HOME
== END 2020-05-09 11:42 | disposition home or self-care (01) ==
LOC: ED 16:11 → EDHOLD 19:54 → 5E 21:03
PROVIDERS: Nurse Practitioner Family; ADMIT Internal Medicine; ATTEND Internal Medicine
DX: E11.43 Type 2 diabetes mellitus with diabetic autonomic (poly)neuropathy (principal); K31.84 Gastroparesis; E11.65 Type 2 diabetes mellitus with hyperglycemia; F41.1 Generalized anxiety disorder; I10 Essential (primary) hypertension; I25.10 Atherosclerotic heart disease of native coronary artery without angina pectoris; E03.9 Hypothyroidism, unspecified; J45.901 Unspecified asthma with (acute) exacerbation; K21.9 Gastro-esophageal reflux disease without esophagitis; G89.4 Chronic pain syndrome; E66.9 Obesity, unspecified; Z68.33 Body mass index [BMI] 33.0-33.9, adult

== ENCOUNTER 2020-08-13 13:11 | Emergency (ER) | payer OTHER ==
[~2020-08-13] VITALS: Wt 77.1 kg
[~2020-08-13 13:11] MED LIST changes: +ACID GONE TABL1 EACH PO; +ASPIRIN ADULT L81 M2 PO; +VICTOZA 3-0.6 MG/0.1 SQ
[2020-08-13] MEDS ORDERED: ROBAXIN-750750 MG PO (15:25)
== END 2020-08-13 15:27 | disposition home or self-care (01) ==
LOC: ED 13:11
DX: S13.9XXA Sprain of joints and ligaments of unspecified parts of neck, initial encounter (principal); S00.03XA Contusion of scalp, initial encounter; S50.11XA Contusion of right forearm, initial encounter; W00.0XXA Fall on same level due to ice and snow, initial encounter; Y93.89 Activity, other specified; Y92.89 Other specified places as the place of occurrence of the external cause; Y99.8 Other external cause status

== ENCOUNTER 2020-12-05 18:43 | Emergency (ER) | payer OTHER ==
[~2020-12-05] VITALS: Ht 144.7 cm; Wt 65.8 kg
[~2020-12-05 18:43] MED LIST changes: +ROBAXIN-750750 MG PO
[2020-12-05 20:05] LABS: BASO # 0.1 10*3/uL (0.0-0.1); BASO % 0.4 % (0.0-1.0); EOS # 0.1 10*3/uL (0.0-0.4); EOS % 0.8 % (1.0-4.0); HEMATOCRIT 39.2 % (37.0-47.0); LYMPH # 4.8 10*3/uL (1.3-4.4); LYMPH % 35.9 % (27.0-41.0); MEAN CELL VOLUME 93.8 fl (81.0-99.0); MEAN CORPUSCULAR HGB 30.9 pg (27.0-31.0); MEAN CORPUSCULAR HGB CONC 32.9 g/dl (33.0-37.0); MEAN PLATELET VOLUME 8.6 fl (9.6-12.3); MONO # 0.5 10*3/uL (0.1-1.0); MONO % 3.8 % (3.0-9.0); NEUT # 7.8 10*3/uL (2.3-7.9); NEUT % 58.6 % (47.0-73.0); PLATELET COUNT AUTOMATED 509 10*3/uL (130-400); RED BLOOD COUNT 4.18 10*6/uL (4.10-5.10); RED CELL DISTRI WIDTH 14.4 % (0-14.5); WHITE BLOOD COUNT 13.3 10*3/uL (4.8-10.8)
[2020-12-05 20:20] LABS: ALBUMIN 2.9 gm/dl (3.1-4.5); ALKALINE PHOSPHATASE 94 U/L (45-117); BUN 8 mg/dl (7-24); CHLORIDE 108 mmol/L (98-107); CREATININE 0.85 mg/dL (0.55-1.02); LIPASE 53 U/L (73-393); POTASSIUM 3.3 mmol/L (3.5-5.1); SGOT/AST 6 IU/L (3-35); SGPT/ALT 15 U/L (12-78); SODIUM 139 mmol/L (136-145); TOTAL PROTEIN 7.2 gm/dL (6.4-8.2)
[2020-12-05 20:24] LABS: TROPONIN I < 0.015 ng/ml (<0.045)
[2020-12-06 02:12] LABS: BILIRUBIN Negative (Negative); BLOOD Negative (Negative); CLARITY Clear (Clear); COLOR Yellow (Yellow); GLUCOSE Negative (Negative); KETONE Negative (Negative); LEUKO ESTERASE Negative (Negative); NITRITE Positive (Negative); SPECIFIC GRAVITY >= 1.030 (1.001-1.030)
[2020-12-06 02:49] LABS: BACTERIA 2+; EPITHELIAL CELLS 21-30; RBC 0-2 rbc/hpf (0-2); WBC 0-2 wbc/hpf (0-5)
[2020-12-06] MEDS ORDERED: MACRODANTIN100 M1 PO (03:12)
== END 2020-12-06 03:30 | disposition home or self-care (01) ==
LOC: ED 18:43
PROVIDERS: Internal Medicine; Physician Assistant
DX: N39.0 Urinary tract infection, site not specified (principal); E87.8 Other disorders of electrolyte and fluid balance, not elsewhere classified; R79.82 Elevated C-reactive protein (CRP); Z88.8 Allergy status to other drugs, medicaments and biological substances; Z88.1 Allergy status to other antibiotic agents; Z79.899 Other long term (current) drug therapy; Z79.82 Long term (current) use of aspirin; Z98.890 Other specified postprocedural states

== ENCOUNTER 2021-04-17 12:53 | Emergency (ER) | payer OTHER ==
[~2021-04-17] VITALS: Wt 69.9 kg
[~2021-04-17 12:53] MED LIST changes: +MACRODANTIN100 M1 PO
[2021-04-17 13:32] LABS: HEMATOCRIT 36.2 % (37.0-47.0); MEAN CELL VOLUME 96.3 fl (81.0-99.0); MEAN CORPUSCULAR HGB 31.9 pg (27.0-31.0); MEAN CORPUSCULAR HGB CONC 33.1 g/dl (33.0-37.0); PLATELET COUNT AUTOMATED 427 10*3/uL (130-400); RED BLOOD COUNT 3.76 10*6/uL (4.10-5.10); RED CELL DISTRI WIDTH 13.4 % (0-14.5); WHITE BLOOD COUNT 12.9 10*3/uL (4.8-10.8)
[2021-04-17 13:48] LABS: ALKALINE PHOSPHATASE 93 U/L (45-117); BUN 6 mg/dl (7-24); CHLORIDE 111 mmol/L (98-107); CREATININE 0.79 mg/dL (0.55-1.02); LIPASE 82 U/L (73-393); POTASSIUM 3.3 mmol/L (3.5-5.1); SGOT/AST 10 IU/L (3-35); SGPT/ALT 15 U/L (12-78); SODIUM 143 mmol/L (136-145); TOTAL PROTEIN 6.5 gm/dL (6.4-8.2)
[2021-04-17 13:54] LABS: BASOPHILS 2 % (0-1); PLATELET SUFFICIENCY HIGH (NORMAL); TOTAL CELLS COUNTED 100 #CELLS
[2021-04-17 13:55] LABS: TROPONIN I < 0.015 ng/ml (<0.045)
== END 2021-04-17 15:05 | disposition left against medical advice (07) ==
LOC: ED 12:53
PROVIDERS: Emergency Medicine
DX: R11.2 Nausea with vomiting, unspecified (principal); R07.9 Chest pain, unspecified; R12 Heartburn; F17.200 Nicotine dependence, unspecified, uncomplicated; Z88.1 Allergy status to other antibiotic agents; Z88.8 Allergy status to other drugs, medicaments and biological substances; Z79.899 Other long term (current) drug therapy; Z79.82 Long term (current) use of aspirin

== ENCOUNTER 2021-05-02 16:00 | Inpatient (IN) | payer OTHER ==
[~2021-05-02] VITALS: Ht 162.6 cm; Wt 71.9 kg
[2021-05-02 16:15] VITALS: BP 102/48
[2021-05-02 16:57] LABS: HEMATOCRIT 39.2 % (37.0-47.0); MEAN CELL VOLUME 92.9 fl (81.0-99.0); MEAN CORPUSCULAR HGB CONC 34.4 g/dl (33.0-37.0); PLATELET COUNT AUTOMATED 502 10*3/uL (130-400); RED BLOOD COUNT 4.22 10*6/uL (4.10-5.10); RED CELL DISTRI WIDTH 13.8 % (0-14.5); WHITE BLOOD COUNT 14.4 10*3/uL (4.8-10.8)
[2021-05-02 17:13] VITALS: BP 132/72
[2021-05-02 17:15] LABS: ALBUMIN 3.2 gm/dl (3.1-4.5); ALKALINE PHOSPHATASE 102 U/L (45-117); BUN 10 mg/dl (7-24); CHLORIDE 111 mmol/L (98-107); LIPASE 72 U/L (73-393); POTASSIUM 3.3 mmol/L (3.5-5.1); SGOT/AST 10 IU/L (3-35); SGPT/ALT 23 U/L (12-78); SODIUM 140 mmol/L (136-145); TOTAL PROTEIN 7.4 gm/dL (6.4-8.2)
[2021-05-02 17:19] LABS: TROPONIN I < 0.015 ng/ml (<0.045)
[2021-05-02 17:45] LABS: ATYPICAL LYMPHS 6 % (0-0); PLATELET SUFFICIENCY NORMAL (NORMAL); TOTAL CELLS COUNTED 100 #CELLS
[2021-05-02 19:44] LABS: BILIRUBIN Negative (Negative); BLOOD Negative (Negative); CLARITY Clear (Clear); COLOR Yellow (Yellow); GLUCOSE Negative (Negative); KETONE Trace (Negative); LEUKO ESTERASE Negative (Negative); NITRITE Positive (Negative); PH 6.5 (4.5-8.0); SPECIFIC GRAVITY >= 1.030 (1.001-1.030)
[2021-05-02 20:06] LABS: CALCIUM OXALATE CRYSTALS 3+; RBC 0-2 rbc/hpf (0-2); WBC 0-2 wbc/hpf (0-5)
[2021-05-02 20:07] LABS: BACTERIA 3+; YEAST TRACE
[2021-05-02 23:00] VITALS: BP 136/82
[2021-05-03 05:00] VITALS: BP 100/60
[2021-05-03 10:04] VITALS: BP 134/86
[2021-05-03] MEDS ORDERED: RANOLAZINE ER1000 MG PO (14:37)
[2021-05-03] MEDS ORDERED: OMEPRAZOLE20 M2 PO (14:38)
[2021-05-03 14:50] VITALS: BP 112/62
[2021-05-03 15:00] VITALS: BP 112/62
[2021-05-03] MEDS ORDERED: Ipratropium Brom3 ML INH (15:24)
[2021-05-03] MEDS ORDERED: XANAX0.5 MG PO (15:25)
[2021-05-03 20:00] VITALS: BP 102/53
[2021-05-04] VITALS: BP 137/62
[2021-05-04 04:00] VITALS: BP 132/74
[2021-05-04 06:04] LABS: BUN 9 mg/dl (7-24); CHLORIDE 113 mmol/L (98-107); CREATININE 0.76 mg/dL (0.55-1.02); POTASSIUM 3.1 mmol/L (3.5-5.1); SODIUM 141 mmol/L (136-145)
[2021-05-04 06:23] LABS: HEMATOCRIT 32.8 % (37.0-47.0); MEAN CORPUSCULAR HGB 31.4 pg (27.0-31.0); MEAN CORPUSCULAR HGB CONC 32.6 g/dl (33.0-37.0); MEAN PLATELET VOLUME 9.2 fl (9.6-12.3); PLATELET COUNT AUTOMATED 403 10*3/uL (130-400); RED BLOOD COUNT 3.41 10*6/uL (4.10-5.10); RED CELL DISTRI WIDTH 13.8 % (0-14.5); WHITE BLOOD COUNT 12.1 10*3/uL (4.8-10.8)
[2021-05-04 07:01] LABS: MEAN CELL VOLUME 96.2 fl (81.0-99.0)
[2021-05-04 08:00] VITALS: BP 124/67
[2021-05-04] MEDS ORDERED: METOCLOPRAMIDE10 M1 PO (10:11)
[2021-05-04] MEDS ORDERED: XANAX0.5 MG PO (10:14)
[2021-05-04 12:00] VITALS: BP 128/76
== END 2021-05-04 16:05 | disposition home or self-care (01) | DRG 463 ==
LOC: ED 16:00 → 5E 23:09 → EDHOLD 23:09 → 5E 05-03 14:14
PROVIDERS: Emergency Medicine; Internal Medicine; ADMIT Internal Medicine; ATTEND Internal Medicine
DX: N39.0 Urinary tract infection, site not specified (principal); R91.1 Solitary pulmonary nodule; Z88.1 Allergy status to other antibiotic agents; Z88.8 Allergy status to other drugs, medicaments and biological substances; F17.210 Nicotine dependence, cigarettes, uncomplicated; F41.1 Generalized anxiety disorder; F33.1 Major depressive disorder, recurrent, moderate; K21.9 Gastro-esophageal reflux disease without esophagitis; I10 Essential (primary) hypertension; I25.10 Atherosclerotic heart disease of native coronary artery without angina pectoris; E03.9 Hypothyroidism, unspecified; J45.909 Unspecified asthma, uncomplicated; E11.9 Type 2 diabetes mellitus without complications

== ENCOUNTER 2021-06-15 16:04 | Emergency (ER) | payer OTHER ==
[~2021-06-15] VITALS: Ht 157.4 cm; Wt 74.8 kg
[~2021-06-15 16:04] MED LIST changes: +Ipratropium Brom3 ML INH; +METOCLOPRAMIDE10 M1 PO; +OMEPRAZOLE20 M2 PO; +RANOLAZINE ER1000 MG PO; +XANAX0.5 MG PO
[2021-06-15 16:38] LABS: HEMATOCRIT 38.4 % (37.0-47.0); MEAN CORPUSCULAR HGB 32.3 pg (27.0-31.0); MEAN CORPUSCULAR HGB CONC 33.6 g/dl (33.0-37.0); MEAN PLATELET VOLUME 8.5 fl (9.6-12.3); PLATELET COUNT AUTOMATED 428 10*3/uL (130-400); RED CELL DISTRI WIDTH 14.4 % (0-14.5); WHITE BLOOD COUNT 19.2 10*3/uL (4.8-10.8)
[2021-06-15 16:57] LABS: ALKALINE PHOSPHATASE 110 U/L (45-117); BUN 11 mg/dl (7-24); CHLORIDE 113 mmol/L (98-107); CPK 18 U/L (26-192); CREATININE 0.82 mg/dL (0.55-1.02); LIPASE 81 U/L (73-393); POTASSIUM 3.2 mmol/L (3.5-5.1); SGOT/AST 9 IU/L (3-35); SGPT/ALT 16 U/L (12-78); SODIUM 140 mmol/L (136-145); TOTAL PROTEIN 7.1 gm/dL (6.4-8.2)
[2021-06-15 16:58] LABS: ACT PARTIAL THROMBO TIME 26.8 SECONDS (20.0-32.1)
[2021-06-15 16:59] LABS: ACETAMINOPHEN (TYLENOL) < 5.0 ug/ml (10-30); ETHYL ALCOHOL < 3.0 mg/dl (<3); TROPONIN I < 0.015 ng/ml (<0.045)
[2021-06-15 17:13] LABS: ATYPICAL LYMPHS 4 % (0-0); BURR CELLS FEW; PLATELET SUFFICIENCY HIGH (NORMAL); TOTAL CELLS COUNTED 100 #CELLS
[2021-06-15] MEDS ORDERED: ATIVAN0.5 MG PO (17:47)
== END 2021-06-15 17:52 | disposition home or self-care (01) ==
LOC: ED 16:04
PROVIDERS: Emergency Medicine
DX: F41.9 Anxiety disorder, unspecified (principal); Z88.1 Allergy status to other antibiotic agents; Z88.8 Allergy status to other drugs, medicaments and biological substances; Z79.899 Other long term (current) drug therapy; Z79.82 Long term (current) use of aspirin; F17.200 Nicotine dependence, unspecified, uncomplicated

== ENCOUNTER 2021-08-02 01:18 | Emergency (ER) | payer OTHER ==
[~2021-08-02] VITALS: Ht 157.4 cm; Wt 71.7 kg
== END 2021-08-02 02:35 | disposition home or self-care (01) ==
LOC: ED 01:18
DX: S01.01XA Laceration without foreign body of scalp, initial encounter (principal); Z88.1 Allergy status to other antibiotic agents; Z88.8 Allergy status to other drugs, medicaments and biological substances; Z79.899 Other long term (current) drug therapy; Z79.82 Long term (current) use of aspirin; Z87.891 Personal history of nicotine dependence; W22.8XXA Striking against or struck by other objects, initial encounter; Y93.89 Activity, other specified; Y92.89 Other specified places as the place of occurrence of the external cause; Y99.8 Other external cause status

== ENCOUNTER 2021-09-27 06:19 | Inpatient (IN) | payer OTHER ==
[~2021-09-27] VITALS: Ht 162.5 cm; Wt 74.5 kg
[2021-09-27] VITALS (8 sets, daily range): BP systolic 81–108; BP diastolic 35–74
[2021-09-27 07:33] LABS: HEMATOCRIT 28.7 % (37.0-47.0); MEAN CELL VOLUME 95.3 fl (81.0-99.0); MEAN CORPUSCULAR HGB 32.6 pg (27.0-31.0); MEAN CORPUSCULAR HGB CONC 34.1 g/dl (33.0-37.0); PLATELET COUNT AUTOMATED 325 10*3/uL (130-400); RED BLOOD COUNT 3.01 10*6/uL (4.10-5.10); RED CELL DISTRI WIDTH 13.8 % (0-14.5); WHITE BLOOD COUNT 9.1 10*3/uL (4.8-10.8)
[2021-09-27 07:47] LABS: TOTAL CELLS COUNTED 100 #CELLS
[2021-09-27 07:48] LABS: BURR CELLS FEW; PLATELET SUFFICIENCY NORMAL (NORMAL); POLYCHROMASIA SLIGHT; TOXIC GRANULATION SLIGHT; VACUOLATION OF NEUTROPHILS MODERATE
[2021-09-27 07:54] LABS: ALBUMIN 2.2 gm/dl (3.1-4.5); CREATININE 2.77 mg/dL (0.55-1.02); POTASSIUM 3.5 mmol/L (3.5-5.1); TOTAL PROTEIN 6.1 gm/dL (6.4-8.2)
[2021-09-27] MEDS ORDERED: METOCLOPRAMIDE10 M1 PO (17:34)
[2021-09-27] MEDS ORDERED: VICTOZA 3-0.6 MG/0.1 SQ (17:35)
[2021-09-27] MEDS ORDERED: ATORVASTATIN CA40 M1 PO (17:35)
[2021-09-27] MEDS ORDERED: BENZTROPINE MESY1 MG PO (17:36)
[2021-09-27] MEDS ORDERED: BUMETANIDE1 MG PO (17:36)
[2021-09-27] MEDS ORDERED: DULOXETINE HCL60 MG PO (17:37)
[2021-09-27] MEDS ORDERED: IMDUR SA30 MG PO (17:37)
[2021-09-27] MEDS ORDERED: NATURE'S BLEND F1 MG PO (17:39)
[2021-09-27] MEDS ORDERED: METOPROLOL SUCC25 M2 PO (17:39)
[2021-09-27] MEDS ORDERED: RANOLAZINE ER1000 MG PO (17:42)
[2021-09-27 22:22] LABS: BILIRUBIN Negative (Negative); BLOOD Negative (Negative); CLARITY Clear (Clear); COLOR Dark Yellow (Yellow); GLUCOSE Negative (Negative); KETONE Negative (Negative); LEUKO ESTERASE Negative (Negative); NITRITE Negative (Negative); PH 5.5 (4.5-8.0)
[2021-09-27 22:36] LABS: BACTERIA 1+; WBC 0-2 wbc/hpf (0-5); YEAST TRACE
[2021-09-28] VITALS: BP 102/50
[2021-09-28 06:44] LABS: HEMATOCRIT 27.6 % (37.0-47.0); MEAN CELL VOLUME 94.2 fl (81.0-99.0); MEAN CORPUSCULAR HGB 32.4 pg (27.0-31.0); MEAN CORPUSCULAR HGB CONC 34.4 g/dl (33.0-37.0); MEAN PLATELET VOLUME 9.2 fl (9.6-12.3); PLATELET COUNT AUTOMATED 327 10*3/uL (130-400); RED BLOOD COUNT 2.93 10*6/uL (4.10-5.10); RED CELL DISTRI WIDTH 13.9 % (0-14.5); WHITE BLOOD COUNT 11.2 10*3/uL (4.8-10.8)
[2021-09-28 06:53] LABS: CHLORIDE 114 mmol/L (98-107); CREATININE 1.01 mg/dL (0.55-1.02); SODIUM 140 mmol/L (136-145)
[2021-09-28 06:57] LABS: BUN 30 mg/dl (7-24)
[2021-09-28 08:00] VITALS: BP 101/85
[2021-09-28 08:16] LABS: PLATELET SUFFICIENCY NORMAL (NORMAL); TOTAL CELLS COUNTED 100 #CELLS; TOXIC GRANULATION MODERATE
[2021-09-28 09:51] VITALS: BP 108/59
[2021-09-28 12:00] VITALS: BP 108/70
[2021-09-28 16:00] VITALS: BP 112/52
[2021-09-28 20:00] VITALS: BP 105/79
[2021-09-29] VITALS: BP 114/70
[2021-09-29 06:15] LABS: CHLORIDE 115 mmol/L (98-107); CREATININE 0.79 mg/dL (0.55-1.02); POTASSIUM 3.9 mmol/L (3.5-5.1); SODIUM 139 mmol/L (136-145)
[2021-09-29 06:21] LABS: BUN 16 mg/dl (7-24)
[2021-09-29 06:23] LABS: MEAN CELL VOLUME 95.4 fl (81.0-99.0); MEAN CORPUSCULAR HGB 32.2 pg (27.0-31.0); MEAN CORPUSCULAR HGB CONC 33.7 g/dl (33.0-37.0); MEAN PLATELET VOLUME 9.2 fl (9.6-12.3); PLATELET COUNT AUTOMATED 346 10*3/uL (130-400); RED BLOOD COUNT 2.83 10*6/uL (4.10-5.10); RED CELL DISTRI WIDTH 14.5 % (0-14.5); WHITE BLOOD COUNT 11.8 10*3/uL (4.8-10.8)
[2021-09-29 07:54] LABS: BURR CELLS FEW; PLATELET SUFFICIENCY NORMAL (NORMAL); POLYCHROMASIA SLIGHT; TOTAL CELLS COUNTED 100 #CELLS
[2021-09-29 07:55] LABS: TOXIC GRANULATION SLIGHT; VACUOLATION OF NEUTROPHILS SLIGHT
[2021-09-29 08:00] VITALS: BP 120/58
[2021-09-29 12:00] VITALS: BP 118/50
[2021-09-29 16:00] VITALS: BP 114/52
[2021-09-29 20:00] VITALS: BP 124/47
[2021-09-30] VITALS: BP 105/69
[2021-09-30 06:01] LABS: BUN 15 mg/dl (7-24); CHLORIDE 116 mmol/L (98-107); CREATININE 0.64 mg/dL (0.55-1.02); POTASSIUM 3.6 mmol/L (3.5-5.1); SODIUM 140 mmol/L (136-145)
[2021-09-30 06:08] LABS: HEMATOCRIT 24.5 % (37.0-47.0); MEAN CELL VOLUME 95.3 fl (81.0-99.0); MEAN CORPUSCULAR HGB 31.5 pg (27.0-31.0); MEAN CORPUSCULAR HGB CONC 33.1 g/dl (33.0-37.0); MEAN PLATELET VOLUME 8.8 fl (9.6-12.3); NUCLEATED RED BLOOD CELL 0.2 % (0.0-0.0); PLATELET COUNT AUTOMATED 347 10*3/uL (130-400); RED BLOOD COUNT 2.57 10*6/uL (4.10-5.10); RED CELL DISTRI WIDTH 15.2 % (0-14.5); WHITE BLOOD COUNT 9.9 10*3/uL (4.8-10.8)
[2021-09-30 06:54] LABS: ATYPICAL LYMPHS 1 % (0-0); BURR CELLS FEW; POLYCHROMASIA SLIGHT; TOTAL CELLS COUNTED 100 #CELLS
[2021-09-30 06:55] LABS: PLATELET SUFFICIENCY NORMAL (NORMAL); TOXIC GRANULATION MODERATE; VACUOLATION OF NEUTROPHILS SLIGHT
[2021-09-30 08:00] VITALS: BP 118/55
[2021-09-30 09:32] LABS: ARTERIAL BLOOD GAS PH 7.415 (7.35-7.45); ARTERIAL BLOOD GAS PO2 99.1 (80-90)
[2021-09-30 09:33] LABS: ABG BASE EXCESS -7.6 mmol/L (-2.0-2.0)
[2021-09-30 10:12] LABS: ALBUMIN 1.4 gm/dl (3.1-4.5); ALKALINE PHOSPHATASE 63 U/L (45-117); BUN 14 mg/dl (7-24); CHLORIDE 117 mmol/L (98-107); CREATININE 0.68 mg/dL (0.55-1.02); POTASSIUM 3.6 mmol/L (3.5-5.1); SGOT/AST 13 IU/L (3-35); SGPT/ALT 13 U/L (12-78); SODIUM 142 mmol/L (136-145); TOTAL PROTEIN 5.1 gm/dL (6.4-8.2)
[2021-09-30 12:00] VITALS: BP 106/52
[2021-09-30 16:00] VITALS: BP 95/74
[2021-09-30 20:00] VITALS: BP 103/49
[2021-10-01] VITALS: BP 111/47
[2021-10-01 08:00] VITALS: BP 98/43
[2021-10-01 09:52] LABS: HEMATOCRIT 24.1 % (37.0-47.0); MEAN CELL VOLUME 97.6 fl (81.0-99.0); MEAN CORPUSCULAR HGB 32.4 pg (27.0-31.0); MEAN CORPUSCULAR HGB CONC 33.2 g/dl (33.0-37.0); NUCLEATED RED BLOOD CELL 0.2 % (0.0-0.0); PLATELET COUNT AUTOMATED 352 10*3/uL (130-400); RED BLOOD COUNT 2.47 10*6/uL (4.10-5.10); RED CELL DISTRI WIDTH 15.7 % (0-14.5); WHITE BLOOD COUNT 10.2 10*3/uL (4.8-10.8)
[2021-10-01 10:09] LABS: ALBUMIN 1.3 gm/dl (3.1-4.5); ALKALINE PHOSPHATASE 77 U/L (45-117); BUN 11 mg/dl (7-24); CHLORIDE 114 mmol/L (98-107); CREATININE 0.65 mg/dL (0.55-1.02); POTASSIUM 3.8 mmol/L (3.5-5.1); SGOT/AST 17 IU/L (3-35); SGPT/ALT 18 U/L (12-78); SODIUM 140 mmol/L (136-145); TOTAL PROTEIN 4.9 gm/dL (6.4-8.2)
[2021-10-01 10:30] LABS: PLATELET SUFFICIENCY NORMAL (NORMAL); POLYCHROMASIA SLIGHT; ROULEAUX MODERATE; TOTAL CELLS COUNTED 100 #CELLS
[2021-10-01 12:00] VITALS: BP 95/47
[2021-10-01 16:00] VITALS: BP 114/52
[2021-10-01 20:00] VITALS: BP 99/58
[2021-10-02] VITALS: BP 118/50
[2021-10-02 08:00] VITALS: BP 120/60; BP 124/55
[2021-10-02 12:00] VITALS: BP 101/46
[2021-10-02 16:00] VITALS: BP 104/49
[2021-10-02 20:00] VITALS: BP 122/58
[2021-10-03 00:15] VITALS: BP 117/56
[2021-10-03 06:48] LABS: ALBUMIN 2.3 gm/dl (3.1-4.5); ALKALINE PHOSPHATASE 51 U/L (45-117); BUN 11 mg/dl (7-24); CHLORIDE 113 mmol/L (98-107); CREATININE 0.54 mg/dL (0.55-1.02); LDH 109 U/L (84-246); POTASSIUM 3.4 mmol/L (3.5-5.1); SGOT/AST 8 IU/L (3-35); SGPT/ALT 14 U/L (12-78); SODIUM 141 mmol/L (136-145); TOTAL PROTEIN 5.4 gm/dL (6.4-8.2)
[2021-10-03 07:02] LABS: HEMATOCRIT 21.8 % (37.0-47.0); MEAN CELL VOLUME 97.3 fl (81.0-99.0); MEAN CORPUSCULAR HGB 32.6 pg (27.0-31.0); MEAN CORPUSCULAR HGB CONC 33.5 g/dl (33.0-37.0); MEAN PLATELET VOLUME 9.4 fl (9.6-12.3); PLATELET COUNT AUTOMATED 397 10*3/uL (130-400); RED BLOOD COUNT 2.24 10*6/uL (4.10-5.10); RED CELL DISTRI WIDTH 15.9 % (0-14.5); WHITE BLOOD COUNT 8.4 10*3/uL (4.8-10.8)
[2021-10-03 08:00] VITALS: BP 92/46
[2021-10-03 08:14] LABS: BURR CELLS FEW; PLATELET SUFFICIENCY NORMAL (NORMAL); POLYCHROMASIA SLIGHT; SCHISTOCYTES FEW; TARGET CELLS FEW; TOTAL CELLS COUNTED 100 #CELLS; TOXIC GRANULATION SLIGHT
[2021-10-03 08:15] LABS: ROULEAUX SLIGHT
[2021-10-03 12:00] VITALS: BP 134/52
[2021-10-03 16:00] VITALS: BP 105/78
[2021-10-03 20:00] VITALS: BP 119/66
[2021-10-04] VITALS: BP 129/89
[2021-10-04 06:05] LABS: ALBUMIN 2.8 gm/dl (3.1-4.5); BUN 12 mg/dl (7-24); CHLORIDE 114 mmol/L (98-107); CREATININE 0.64 mg/dL (0.55-1.02); LDH 140 U/L (84-246); POTASSIUM 3.4 mmol/L (3.5-5.1); SGOT/AST 6 IU/L (3-35); SGPT/ALT 11 U/L (12-78); SODIUM 141 mmol/L (136-145); TOTAL PROTEIN 5.8 gm/dL (6.4-8.2)
[2021-10-04 06:06] LABS: ALKALINE PHOSPHATASE 46 U/L (45-117)
[2021-10-04 06:29] LABS: HEMATOCRIT 21.2 % (37.0-47.0); MEAN CELL VOLUME 96.8 fl (81.0-99.0); MEAN CORPUSCULAR HGB 32.9 pg (27.0-31.0); MEAN PLATELET VOLUME 9.7 fl (9.6-12.3); NUCLEATED RED BLOOD CELL 0.1 10*3/uL (0.0-0.0); NUCLEATED RED BLOOD CELL 0.7 % (0.0-0.0); PLATELET COUNT AUTOMATED 417 10*3/uL (130-400); RED BLOOD COUNT 2.19 10*6/uL (4.10-5.10); RED CELL DISTRI WIDTH 15.8 % (0-14.5); WHITE BLOOD COUNT 8.6 10*3/uL (4.8-10.8)
[2021-10-04 07:59] LABS: PLATELET SUFFICIENCY HIGH (NORMAL); POLYCHROMASIA SLIGHT; ROULEAUX SLIGHT; TARGET CELLS FEW; TOTAL CELLS COUNTED 100 #CELLS; TOXIC GRANULATION SLIGHT
[2021-10-04 08:00] VITALS: BP 106/50
[2021-10-04 12:00] VITALS: BP 100/50
[2021-10-04 16:00] VITALS: BP 121/71
[2021-10-04 20:00] VITALS: BP 126/55
[2021-10-05] VITALS: BP 133/62
[2021-10-05 06:07] LABS: ALBUMIN 2.4 gm/dl (3.1-4.5); BUN 14 mg/dl (7-24); CHLORIDE 114 mmol/L (98-107); POTASSIUM 3.7 mmol/L (3.5-5.1); SGPT/ALT 10 U/L (12-78); SODIUM 140 mmol/L (136-145)
[2021-10-05 06:11] LABS: ALKALINE PHOSPHATASE 42 U/L (45-117); CREATININE 0.56 mg/dL (0.55-1.02); LDH 138 U/L (84-246); TOTAL PROTEIN 5.3 gm/dL (6.4-8.2)
[2021-10-05 06:26] LABS: SGOT/AST < 3 IU/L (3-35)
[2021-10-05 06:27] LABS: MEAN CELL VOLUME 99.1 fl (81.0-99.0); MEAN CORPUSCULAR HGB CONC 32.3 g/dl (33.0-37.0); MEAN PLATELET VOLUME 9.6 fl (9.6-12.3); NUCLEATED RED BLOOD CELL 0.1 10*3/uL (0.0-0.0); NUCLEATED RED BLOOD CELL 0.8 % (0.0-0.0); PLATELET COUNT AUTOMATED 429 10*3/uL (130-400); RED BLOOD COUNT 2.22 10*6/uL (4.10-5.10); RED CELL DISTRI WIDTH 16.2 % (0-14.5); WHITE BLOOD COUNT 9.7 10*3/uL (4.8-10.8)
[2021-10-05 07:33] LABS: TOTAL CELLS COUNTED 100 #CELLS
[2021-10-05 07:34] LABS: PLATELET SUFFICIENCY HIGH (NORMAL)
[2021-10-05 07:50] VITALS: BP 144/60
[2021-10-05 12:00] VITALS: BP 107/50
[2021-10-05 16:00] VITALS: BP 122/59
[2021-10-05 20:00] VITALS: BP 123/52
[2021-10-06] VITALS: BP 114/51
[2021-10-06 06:45] LABS: HEMATOCRIT 23.1 % (37.0-47.0); MEAN CELL VOLUME 97.1 fl (81.0-99.0); MEAN CORPUSCULAR HGB 32.8 pg (27.0-31.0); MEAN CORPUSCULAR HGB CONC 33.8 g/dl (33.0-37.0); MEAN PLATELET VOLUME 9.6 fl (9.6-12.3); NUCLEATED RED BLOOD CELL 0.1 10*3/uL (0.0-0.0); NUCLEATED RED BLOOD CELL 0.7 % (0.0-0.0); PLATELET COUNT AUTOMATED 488 10*3/uL (130-400); RED BLOOD COUNT 2.38 10*6/uL (4.10-5.10); RED CELL DISTRI WIDTH 16.1 % (0-14.5)
[2021-10-06 07:35] LABS: ALBUMIN 2.3 gm/dl (3.1-4.5); ALKALINE PHOSPHATASE 39 U/L (45-117); BUN 15 mg/dl (7-24); CHLORIDE 114 mmol/L (98-107); CREATININE 0.71 mg/dL (0.55-1.02); PLATELET SUFFICIENCY HIGH (NORMAL); POTASSIUM 3.7 mmol/L (3.5-5.1); SGOT/AST 4 IU/L (3-35); SGPT/ALT 9 U/L (12-78); SODIUM 142 mmol/L (136-145); TOTAL CELLS COUNTED 100 #CELLS; TOTAL PROTEIN 5.2 gm/dL (6.4-8.2)
[2021-10-06 08:00] VITALS: BP 141/57
[2021-10-06 12:00] VITALS: BP 123/45
[2021-10-06] MEDS ORDERED: CHOLESTYRAMINE L4 GM PO (14:26)
== END 2021-10-06 17:05 | disposition home or self-care (01) | DRG 137 ==
LOC: ED 06:19 → 4E 12:39 → EDHOLD 12:39 → 4E 14:20
PROVIDERS: Emergency Medicine; Internal Medicine; Internal Medicine Critical Care Medicine; Internal Medicine Nephrology; ADMIT Internal Medicine; ATTEND Internal Medicine
PROC: XW033E5 Introduction of Remdesivir Anti-infective into Peripheral Vein, Percutaneous Approach, New Technology Group 5 (ICD-10-PCS; principal; 2021-10-02)
PROC: 5A0935A Assistance with Respiratory Ventilation, Less than 24 Consecutive Hours, High Flow/Velocity Cannula (ICD-10-PCS; 2021-10-04)
DX: U07.1 COVID-19 (principal); N17.0 Acute kidney failure with tubular necrosis; J12.82 Pneumonia due to coronavirus disease 2019; K52.9 Noninfective gastroenteritis and colitis, unspecified; E86.0 Dehydration; N39.0 Urinary tract infection, site not specified; E43 Unspecified severe protein-calorie malnutrition; B96.89 Other specified bacterial agents as the cause of diseases classified elsewhere; J44.1 Chronic obstructive pulmonary disease with (acute) exacerbation; J44.0 Chronic obstructive pulmonary disease with (acute) lower respiratory infection; F17.210 Nicotine dependence, cigarettes, uncomplicated; J96.01 Acute respiratory failure with hypoxia; D63.8 Anemia in other chronic diseases classified elsewhere; E87.6 Hypokalemia; F33.1 Major depressive disorder, recurrent, moderate; F41.1 Generalized anxiety disorder; S00.93XA Contusion of unspecified part of head, initial encounter; I25.10 Atherosclerotic heart disease of native coronary artery without angina pectoris; E03.9 Hypothyroidism, unspecified; I95.9 Hypotension, unspecified; K21.00 Gastro-esophageal reflux disease with esophagitis, without bleeding; E11.43 Type 2 diabetes mellitus with diabetic autonomic (poly)neuropathy; K31.84 Gastroparesis; W19.XXXA Unspecified fall, initial encounter; Y93.89 Activity, other specified; Y92.098 Other place in other non-institutional residence as the place of occurrence of the external cause; Y99.8 Other external cause status

== ENCOUNTER 2022-02-13 20:10 | Emergency (ER) | payer OTHER ==
[~2022-02-13] VITALS: Ht 157.4 cm; Wt 63.5 kg
[~2022-02-13 20:10] MED LIST changes: +BENZTROPINE MESY1 MG PO; +CHOLESTYRAMINE L4 GM PO; +METOPROLOL SUCC25 M2 PO
[2022-02-14] MEDS ORDERED: VITAMIN D-40010 MCG PO (18:36)
[2022-02-14] MEDS ORDERED: LEVOTHYROXINE125 MCG PO (18:36)
[2022-02-14] MEDS ORDERED: ALPRAZOLAM0.5 M3 PO (18:37)
[2022-02-14] MEDS ORDERED: VITAMIN D350 MCG PO (18:37)
[2022-02-14] MEDS ORDERED: DRIZALMA SPRINK20 MG PO (18:39)
[2022-02-14] MEDS ORDERED: RANEXA1000 M1 PO (18:39)
[2022-02-14] MEDS ORDERED: ISOSORBIDE DINI30 MG PO (18:40)
[2022-02-14] MEDS ORDERED: METOPROLOL SUCC25 M2 PO (19:27)
[2022-02-14] MEDS ORDERED: BUMETANIDE1 MG PO (19:28)
== END 2022-02-13 21:28 | disposition left against medical advice (07) ==
LOC: ED 20:10
DX: R11.10 Vomiting, unspecified (principal); R19.7 Diarrhea, unspecified; Z53.21 Procedure and treatment not carried out due to patient leaving prior to being seen by health care provider

== ENCOUNTER 2022-03-04 13:31 | Emergency (ER) | payer OTHER ==
[~2022-03-04] VITALS: Ht 157.4 cm; Wt 68.5 kg
[~2022-03-04 13:31] MED LIST changes: +DRIZALMA SPRINK20 MG PO; +ISOSORBIDE DINI30 MG PO; +LEVOTHYROXINE125 MCG PO; +RANEXA1000 M1 PO; +VITAMIN D-40010 MCG PO; +VITAMIN D350 MCG PO
[2022-03-04 14:23] LABS: HEMATOCRIT 42.5 % (37.0-47.0); MEAN CORPUSCULAR HGB 31.2 pg (27.0-31.0); MEAN CORPUSCULAR HGB CONC 33.2 g/dl (33.0-37.0); MEAN PLATELET VOLUME 8.6 fl (9.6-12.3); PLATELET COUNT AUTOMATED 493 10*3/uL (130-400); RED BLOOD COUNT 4.52 10*6/uL (4.10-5.10); RED CELL DISTRI WIDTH 14.4 % (0-14.5); WHITE BLOOD COUNT 14.7 10*3/uL (4.8-10.8)
[2022-03-04 14:27] LABS: MANUAL DIFF REFLEX YES
[2022-03-04 14:48] LABS: CREATININE 1.21 mg/dL (0.55-1.02); POTASSIUM 3.6 mmol/L (3.5-5.1); TOTAL PROTEIN 7.2 gm/dL (6.4-8.2)
[2022-03-04 14:54] LABS: ATYPICAL LYMPHS 1 % (0-0); PLATELET SUFFICIENCY HIGH (NORMAL); TOTAL CELLS COUNTED 100 #CELLS
== END 2022-03-04 16:32 | disposition left against medical advice (07) ==
LOC: ED 13:31
PROVIDERS: Emergency Medicine
DX: R10.11 Right upper quadrant pain (principal); R11.2 Nausea with vomiting, unspecified; J44.9 Chronic obstructive pulmonary disease, unspecified; E11.9 Type 2 diabetes mellitus without complications; K21.9 Gastro-esophageal reflux disease without esophagitis; I10 Essential (primary) hypertension; Z90.89 Acquired absence of other organs; F17.200 Nicotine dependence, unspecified, uncomplicated; Z88.1 Allergy status to other antibiotic agents; Z88.8 Allergy status to other drugs, medicaments and biological substances

== ENCOUNTER 2022-07-10 20:47 | Emergency (ER) | payer OTHER ==
[~2022-07-10] VITALS: Ht 157.4 cm; Wt 73.9 kg
[2022-07-10] MEDS ORDERED: NATURE'S BLEND F1 MG PO (20:58)
[2022-07-10] MEDS ORDERED: ASPIRIN CHEWABL81 MG PO (20:58)
[2022-07-10] MEDS ORDERED: LIPITOR40 MG PO (21:00)
[2022-07-10] MEDS ORDERED: PROTONIX40 MG PO (21:00)
[2022-07-10] MEDS ORDERED: COGENTIN0.5 MG PO (21:01)
[2022-07-10] MEDS ORDERED: REGLAN10 M1 PO (21:01)
[2022-07-10 21:10] LABS: BILIRUBIN Negative (Negative); BLOOD Negative (Negative); CLARITY Cloudy (Clear); COLOR Yellow (Yellow); GLUCOSE Negative (Negative); KETONE Negative (Negative); LEUKO ESTERASE 1+ (Negative); NITRITE Positive (Negative); PH 5.5 (4.5-8.0)
[2022-07-10 21:19] LABS: BACTERIA 4+
[2022-07-10 21:20] LABS: HYALINE CAST 0-2
[2022-07-10 21:26] LABS: HEMATOCRIT 39.1 % (37.0-47.0); MEAN CELL VOLUME 89.3 fl (81.0-99.0); MEAN CORPUSCULAR HGB CONC 35.8 g/dl (33.0-37.0); MEAN PLATELET VOLUME 8.6 fl (9.6-12.3); PLATELET COUNT AUTOMATED 467 10*3/uL (130-400); RED BLOOD COUNT 4.38 10*6/uL (4.10-5.10); WHITE BLOOD COUNT 13.2 10*3/uL (4.8-10.8)
[2022-07-10 21:29] LABS: MANUAL DIFF REFLEX YES
[2022-07-10 21:43] LABS: ALKALINE PHOSPHATASE 115 U/L (45-117); BUN 17 mg/dl (7-24); CHLORIDE 110 mmol/L (98-107); CREATININE 0.91 mg/dL (0.55-1.02); LIPASE 181 U/L (73-393); SGOT/AST 6 IU/L (3-35); SGPT/ALT 21 U/L (12-78); SODIUM 138 mmol/L (136-145); TOTAL PROTEIN 7.4 gm/dL (6.4-8.2)
[2022-07-10 21:49] LABS: PLATELET SUFFICIENCY HIGH (NORMAL); TOTAL CELLS COUNTED 100 #CELLS
[2022-07-11] MEDS ORDERED: MACROBID100 M1 PO (02:49)
== END 2022-07-11 02:58 | disposition home or self-care (01) ==
LOC: ED 20:47
PROVIDERS: Physician Assistant
DX: N39.0 Urinary tract infection, site not specified (principal); E87.6 Hypokalemia; Z88.1 Allergy status to other antibiotic agents; Z88.8 Allergy status to other drugs, medicaments and biological substances; Z79.899 Other long term (current) drug therapy; Z79.82 Long term (current) use of aspirin; Z90.89 Acquired absence of other organs; F17.200 Nicotine dependence, unspecified, uncomplicated

== ENCOUNTER 2023-02-21 19:34 | Emergency (ER) | payer OTHER ==
[~2023-02-21] VITALS: Ht 160 cm; Wt 78.0 kg
[~2023-02-21 19:34] MED LIST changes: +ASPIRIN CHEWABL81 MG PO; +COGENTIN0.5 MG PO; +LIPITOR40 MG PO; +MACROBID100 M1 PO
[2023-02-21] MEDS ORDERED: ZANAFLEX4 MG PO (21:39)
== END 2023-02-21 22:03 | disposition home or self-care (01) ==
LOC: ED 19:34
DX: M79.661 Pain in right lower leg (principal); I10 Essential (primary) hypertension; J44.9 Chronic obstructive pulmonary disease, unspecified; F32.A Depression, unspecified; F41.9 Anxiety disorder, unspecified; F17.200 Nicotine dependence, unspecified, uncomplicated; Z88.1 Allergy status to other antibiotic agents; Z88.8 Allergy status to other drugs, medicaments and biological substances; Z79.2 Long term (current) use of antibiotics; Z79.899 Other long term (current) drug therapy; Z79.82 Long term (current) use of aspirin; Z90.89 Acquired absence of other organs

== ENCOUNTER → 2023-02-22 | Outpatient (CLI) | payer OTHER ==
[~2023-02-22] MED LIST changes: +ZANAFLEX4 MG PO
== END | disposition home or self-care (01) ==
LOC: US 09:43
PROVIDERS: ATTEND Nurse Practitioner Family
DX: M79.661 Pain in right lower leg (principal); R60.0 Localized edema

== ENCOUNTER 2023-03-05 17:22 | Emergency (ER) | payer OTHER ==
[~2023-03-05] VITALS: Ht 160 cm; Wt 80.3 kg
[2023-03-05] MEDS ORDERED: PREDNISONE20 M1 PO (18:59)
== END 2023-03-05 20:18 | disposition home or self-care (01) ==
LOC: ED 17:22
DX: R22.9 Localized swelling, mass and lump, unspecified (principal); T49.4X5A Adverse effect of keratolytics, keratoplastics, and other hair treatment drugs and preparations, initial encounter; E11.9 Type 2 diabetes mellitus without complications; F41.9 Anxiety disorder, unspecified; K21.9 Gastro-esophageal reflux disease without esophagitis; F31.9 Bipolar disorder, unspecified; I25.10 Atherosclerotic heart disease of native coronary artery without angina pectoris; J44.9 Chronic obstructive pulmonary disease, unspecified; Z88.1 Allergy status to other antibiotic agents; Z88.8 Allergy status to other drugs, medicaments and biological substances; Z90.89 Acquired absence of other organs; F17.200 Nicotine dependence, unspecified, uncomplicated; Y92.89 Other specified places as the place of occurrence of the external cause

== ENCOUNTER → 2024-02-20 | Outpatient (CLI) | payer OTHER ==
[~2024-02-20] MED LIST changes: +PREDNISONE20 M1 PO
== END | disposition home or self-care (01) ==
LOC: ORTHO 03:31
PROVIDERS: ATTEND Orthopaedic Surgery
DX: M25.531 Pain in right wrist (principal)

== ENCOUNTER → 2024-03-30 | Outpatient (CLI) | payer OTHER ==
[2024-03-30 10:40] LABS: MEAN CELL VOLUME 93.7 fl (81.0-99.0); MEAN CORPUSCULAR HGB 30.9 pg (27.0-31.0); MEAN PLATELET VOLUME 8.6 fl (9.6-12.3); PLATELET COUNT AUTOMATED 419 10*3/uL (130-400); RED BLOOD COUNT 4.59 10*6/uL (4.10-5.10); RED CELL DISTRI WIDTH 14.4 % (0-14.5); WHITE BLOOD COUNT 14.5 10*3/uL (4.8-10.8)
[2024-03-30 10:44] LABS: MANUAL DIFF REFLEX YES
[2024-03-30 11:11] LABS: PLATELET SUFFICIENCY HIGH (NORMAL); TOTAL CELLS COUNTED 100 #CELLS
[2024-03-30 11:20] LABS: ALKALINE PHOSPHATASE 94 U/L (46-116); BUN 10 mg/dl (9-23); CHLORIDE 109 mmol/L (98-107); CHOLESTEROL 307 mg/dL (<200); CPK 59 U/L (34-171); FREE T4 1.17 ng/dl (0.89-1.76); LDL CHOLESTEROL 217 mg/dL (9-159); POTASSIUM 3.7 mmol/L (3.4-5.1); SGPT/ALT 16 U/L (5-49); TOTAL PROTEIN 7.2 gm/dL (6.0-8.0); TRIGLYCERIDES 261 mg/dl (<150)
[2024-03-30 11:23] LABS: VITAMIN D, 25-HYDROXY 18.1 ng/mL (30-100)
== END | disposition home or self-care (01) ==
LOC: LAB 10:16
PROVIDERS: ATTEND Internal Medicine
DX: I10 Essential (primary) hypertension (principal); Z79.891 Long term (current) use of opiate analgesic; Z79.899 Other long term (current) drug therapy

== ENCOUNTER → 2024-04-30 | Outpatient (CLI) | payer OTHER | END | disposition home or self-care (01) | LOC: MRI 02:48 | PROVIDERS: ATTEND Orthopaedic Surgery | DX: M47.812 Spondylosis without myelopathy or radiculopathy, cervical region (principal); M50.321 Other cervical disc degeneration at C4-C5 level; M50.322 Other cervical disc degeneration at C5-C6 level; M48.02 Spinal stenosis, cervical region ==

== ENCOUNTER → 2024-07-05 | Outpatient (CLI) | payer OTHER | END | disposition home or self-care (01) | LOC: LAB 10:33 | PROVIDERS: ATTEND Allergy & Immunology | DX: T78.2XXA Anaphylactic shock, unspecified, initial encounter (principal); T63.441A Toxic effect of venom of bees, accidental (unintentional), initial encounter; T63.451A Toxic effect of venom of hornets, accidental (unintentional), initial encounter; T63.461A Toxic effect of venom of wasps, accidental (unintentional), initial encounter; X58.XXXA Exposure to other specified factors, initial encounter ==

== ENCOUNTER → 2025-02-10 | Outpatient (CLI) | payer OTHER ==
[~2025-02-10] MED LIST changes: +Regadenoson 0.4 MG/5 ML SYR IV ONE
== END | disposition home or self-care (01) ==
LOC: CARD 03:13
PROVIDERS: ATTEND Internal Medicine
DX: I25.9 Chronic ischemic heart disease, unspecified (principal); I25.10 Atherosclerotic heart disease of native coronary artery without angina pectoris; R07.9 Chest pain, unspecified; I50.9 Heart failure, unspecified

== ENCOUNTER → 2025-02-17 | Outpatient (CLI) | payer OTHER ==
[~2025-02-17] MED LIST changes: -Regadenoson 0.4 MG/5 ML SYR IV ONE
[2025-02-17 10:37] LABS: BUN 18 mg/dl (9-23); POTASSIUM 3.8 mmol/L (3.4-5.1)
== END | disposition home or self-care (01) ==
LOC: LAB 09:25
PROVIDERS: ATTEND Internal Medicine Cardiovascular Disease
DX: Z01.812 Encounter for preprocedural laboratory examination (principal)

== ENCOUNTER 2025-06-05 19:14 | Emergency (ER) | payer OTHER ==
[~2025-06-05] VITALS: Ht 160 cm; Wt 78.9 kg
[2025-06-05 20:13] LABS: MEAN CELL VOLUME 91.0 fl (81.0-99.0); MEAN CORPUSCULAR HGB 30.0 pg (27.0-31.0); MEAN PLATELET VOLUME 8.7 fl (9.6-12.3); NUCLEATED RED BLOOD CELL 0.0 % (0.0-0.0); NUCLEATED RED BLOOD CELL 0.0 10*3/uL (0.0-0.0); PLATELET COUNT AUTOMATED 402 10*3/uL (130-400); RED CELL DISTRI WIDTH 14.0 % (0-14.5)
[2025-06-05 20:20] LABS: MANUAL DIFF REFLEX YES
[2025-06-05 20:32] LABS: BUN 18 mg/dl (9-23); SGPT/ALT 17 U/L (5-49)
[2025-06-05 20:38] LABS: PLATELET SUFFICIENCY HIGH (NORMAL)
[2025-06-05] MEDS ORDERED: MAGNESIUM CITRATE 296 ML BOT PO ONE ×2 (21:30)
== END 2025-06-05 21:33 | disposition home or self-care (01) ==
LOC: ED 19:14
PROVIDERS: Nurse Practitioner Family
DX: K59.00 Constipation, unspecified (principal); F17.200 Nicotine dependence, unspecified, uncomplicated; Z79.899 Other long term (current) drug therapy; Z79.82 Long term (current) use of aspirin; Z88.1 Allergy status to other antibiotic agents; Z88.8 Allergy status to other drugs, medicaments and biological substances

== ENCOUNTER → 2025-07-25 | Outpatient (CLI) | payer OTHER | END | disposition home or self-care (01) | LOC: ORTHO 00:41 | PROVIDERS: ATTEND Orthopaedic Surgery | DX: M19.072 Primary osteoarthritis, left ankle and foot (principal); M25.572 Pain in left ankle and joints of left foot; M77.32 Calcaneal spur, left foot ==